=== PATIENT | female | born 1975 | race Caucasian/White ===

== ENCOUNTER 2019-09-26 02:59 | Emergency (ER) | payer SELFPAY ==
[2019-09-26 03:03] VITALS: BMI 22.6
[2019-09-26 03:08] VITALS: BP 135/61; PULSE 110; RESP 18; TEMP 37.2; O2SAT 99
--- NOTE | 2019-09-26 03:21 | W.ED.EXTPRO ---
HPI - Extremity Problem General: Chief complaint: Extremity Injury, Upper Stated complaint: Bilateral Wrist Pain Time Seen by Provider: 09/26/19 03:11 Source: patient Mode of arrival: ambulatory Limitations: no limitations History of Present Illness: HPI Narrative: 44-year-old female who has erythema and warmth and pain to her right wrist. Patient has a history of drug use but denies any IV use at this time. Patient states that it is quite painful and rates it a 9 out of 10. She is had low-grade fevers at home. Denies any worsening or improving factors. Associated symptoms: Reports fever(s); Deny chest pain or rash Review of Systems Const: Reports: fever(s) Eyes: Denies: blurry vision or eye discomfort ENMT: Denies: throat pain or dental pain Card: Denies: chest pain Resp: Denies: dyspnea GI: Denies: abdominal pain, nausea, vomiting or diarrhea : Denies: dysuria Musc: Reports: extremity pain Skin/Breast: Denies: rash Neuro: Denies: headache(s) Psych: Denies: depression Iftikhar/Lymph: Denies: easy bruising All/Imm: Denies: urticaria PFSH ED PFSH: Medical History (Updated 09/26/19 @ 05:00 by Andra Perry MD) Compression fracture of L1 lumbar vertebra Hx of migraines Surgical History H/O knee surgery History of back surgery Social History Smoking and tobacco status: current every day smoker Physical Exam Const: COMMON NORMALS: no acute distress, patient oriented x3 and healthy appearing HENMT: COMMON NORMALS: normocephalic and atraumatic HEAD & SCALP: normocephalic and atraumatic Eye: COMMON NORMALS: Equal, round and reactive pupils present and EOMs intact bilaterally PUPIL: Yes Equal, round and reactive pupils present Neck/C-Spine: COMMON NORMALS: full ROM and supple Chest: COMMONS NORMALS: normal inspection of the chest and normal palpation of entire chest wall Resp: COMMON NORMALS: normal respiratory effort, No retractions, No use of accessory muscles and clear to auscultation bilaterally AUSCULTATION: clear to auscultation bilaterally Cardio: COMMON NORMALS: regular rate, regular rhythm and No murmurs present (Cardio) RATE: regular rate RHYTHM: regular rhythm GI: COMMON NORMALS: Normal to inspection, nondistended, normoactive bowel sounds present, Soft to palpation, non-tender and no masses PALPATION: Yes Soft to palpation Extremity: COMMON NORMALS: full ROM NARRATIVE EXTREMITY EXAM: 3 cm area of erythema to right wrist that is warm to touch with no abscess formation Neuro: COMMON NORMALS: patient oriented x3, moves all extremities and no focal motor deficits Psych: COMMON NORMALS: mental status grossly normal, Normal thought process present and cooperative THOUGHT PROCESS: Normal thought process present Skin: COMMON NORMALS: no rashes or lesions noted and no wounds GENERAL SKIN EXAM: no rashes or lesions noted Course Vital Signs: Vital signs: Vital Signs Temperature 98.9 F 09/26/19 05:19 Pulse Rate 97 09/26/19 05:19 Respiratory Rate 14 09/26/19 05:19 Blood Pressure 120/71 09/26/19 05:19 Pulse Oximetry 100 09/26/19 05:19 MDM - Extremity (Nontraumatic) MDM Narrative: Medical decision making narrative: Patient presents here with a cellulitis to her wrist. She has no signs of abscess formation and cellulitis is roughly 3 to 4 cm. Patient has no signs of sepsis. Patient given IV antibiotics here and will start on Keflex. Informed her to watch area of erythema and return to the ER if worsening. She understands and agrees to this plan. Lab Data: Labs: Lab Results 09/26/19 09/26/19 09/26/19 Range/Units 03:55 04:10 04:10 WBC 15.6 H (4.0-10.0) 10^3/ uL RBC 3.91 L (4.1-5.3) 10^6/u L Hgb 11.7 (11.5-15.3) g/dL Hct 36.1 L (37.0-47.0) % MCV 92.3 (81-99) fL MCH 29.9 (28.0-34.0) pg MCHC 32.4 (30.0-36.0) g/dL RDW 12.6 (12.1-15.1) % Plt Count 282 (130-400) 10^3/c mm MPV 10.2 (7.4-10.4) fL Neut % (Auto) 85.9 % Lymph % (Auto) 5.9 % Amelia % (Auto) 7.6 % Eos % (Auto) 0.0 % Baso % (Auto) 0.2 % Neut # (Auto) 13.39 H (1.8-7.7) 10^3/u L Lymph # (Auto) 0.9 (0.8-4.8) 10^3/u L Amelia # (Auto) 1.2 H (0.2-0.9) 10^3/u L Eos # (Auto) 0.0 (0.0-0.8) 10^3/u L Baso # (Auto) 0.0 (0.0-0.1) 10^3/u L Nucleated RBC % (a uto) 0 % Nucleated RBCs # 0.0 /100WBC Sodium 128 L (136-145) mmol/L Potassium 3.4 L (3.5-5.1) mmol/L Chloride 94 L (98-107) mmol/L Carbon Dioxide 22 (22-29) mmol/L Anion Gap 15.4 (5-19) BUN 6 (6-20) mg/dL Creatinine 0.5 (0.5-0.9) mg/dL GFR Calculation 135.3 H (90-130) mL/min Glucose 175 H (65-115) mg/dL Calculated Osmolal ity 266 L (285-295) mOsm/k g Calcium 9.7 (8.5-10.5) mg/dL Total Bilirubin 0.9 (0.15-1.2) mg/dL AST 17 (0-32) U/L ALT 19 (0-33) U/L Alkaline Phosphata se 74 (35-105) IU/L Total Protein 7.8 (6.6-8.7) g/dL Albumin 4.5 (3.5-5.2) g/dL Globulin 3.3 (1.3-4.6) g/dL Urine Opiates Scre en Positive H (Negative) ng/mL Ur Barbiturates Sc reen Negative (Negative) ng/mL Ur Phencyclidine S crn Negative (Negative) ng/mL Ur Amphetamines Sc reen Positive H (Negative) ng/mL U Benzodiazepines Scrn Negative (Negative) ng/mL Urine Cocaine Scre en Negative (Negative) ng/mL U Marijuana (THC) Screen Positive H (Negative) ng/mL Discharge Plan Discharge Patient Disposition: Home, Self-Care Clinical Impression: Cellulitis Qualifiers: Site of cellulitis: extremity Site of cellulitis of extremity: upper extremity Laterality: left Qualified Code(s): L03.114 - Cellulitis of left upper limb Condition: Stable Prescriptions: New Bactrim DS 800-160 mg tablet 1 tab PO BID 10 Days Qty: 20 RF: 0 Keflex 500 mg capsule 500 mg PO Q6H 7 Days Qty: 28 RF: 0 Naprosyn 500 mg tablet 500 mg PO BID PRN (Reason: pain) Qty: 20 RF: 0 No Action acetaminophen [Tylenol] 325 mg tablet 650 mg PO DAILY PRN (Reason: fever or pain) RF: 0 sertraline 100 mg tablet 100 mg PO DAILY Qty: 30 RF: 2 trazodone 50 mg tablet 150 mg PO .HS Qty: 90 RF: 2 doxycycline hyclate 100 mg capsule 100 mg PO BID Qty: 14 RF: 0 mupirocin 2 % ointment 1 applic TOPICAL TID Qty: 15 RF: 0 Discharge Orders: Discharge Order (Routine); Ordered 09/26/19 Ordered By: Andra Perry Referrals: Serge Edward MD [Primary Care Provider] - 1-3 days Discharge Diet: Advance as tolerated Discharge Activity: Resume usual activity Patient Instructions: Cellulitis (ED) Discharge Date/Time: 09/26/19 05:20 Coding Level of Care Code ED Software Testing Specialist for Chg Fwd Exam Comprehensive
[2019-09-26] MEDS: sodium chloride 0.9% 1,000 ML 999 ML IV (04:10)
[2019-09-26] MEDS: ondansetron 2 mg/ML SDV 2 mL 4 MG IVP (04:10)
[2019-09-26] MEDS: ketorolac 30 mg/mL INJ IVP (04:10)
[2019-09-26] MEDS: vancomycin 1,000 MG in sodium chloride 0.9% 250 ML 250 MG IV (04:10)
[2019-09-26 04:39] LABS: Basophils % 0.2 %; Hematocrit 36.1 % (37.0-47.0); Hemoglobin 11.7 g/dL (11.5-15.3); Lymphocytes # 0.9 10^3/uL (0.8-4.8); Lymphocytes % 5.9 %; Mean Corpuscular HGB Conc 32.4 g/dL (30.0-36.0); Mean Corpuscular Hemoglobin 29.9 pg (28.0-34.0); Mean Corpuscular Volume 92.3 fL (81-99); Mean Platelet Volume 10.2 fL (7.4-10.4); Monocytes # 1.2 10^3/uL (0.2-0.9); Monocytes % 7.6 %; Neutrophils # 13.39 10^3/uL (1.8-7.7); Neutrophils % 85.9 %; Nucleated Red Blood Cells % 0 %; Platelet Count 282 10^3/cmm (130-400); Red Blood Count 3.91 10^6/uL (4.1-5.3); Red Cell Distribution Width 12.6 % (12.1-15.1); White Blood Count 15.6 10^3/uL (4.0-10.0)
[2019-09-26 04:47] LABS: Alanine Aminotransferase 19 U/L (0-33); Albumin Level 4.5 g/dL (3.5-5.2); Alkaline Phosphatase 74 IU/L (35-105); Anion Gap 15.4 (5-19); Aspartate Amino Transferase 17 U/L (0-32); Blood Urea Nitrogen 6 mg/dL (6-20); Calcium 9.7 mg/dL (8.5-10.5); Carbon Dioxide 22 mmol/L (22-29); Chloride 94 mmol/L (98-107); Globulin 3.3 g/dL (1.3-4.6); Glomerular Filtration Rate 135.3 mL/min (90-130); Glucose 175 mg/dL (65-115); Osmolality Calculated 266 mOsm/kg (285-295); Potassium 3.4 mmol/L (3.5-5.1); Sodium 128 mmol/L (136-145); Total Bilirubin 0.9 mg/dL (0.15-1.2); Total Protein 7.8 g/dL (6.6-8.7)
[2019-09-26 05:19] VITALS: BP 120/71; PULSE 97; RESP 14; TEMP 37.2; O2SAT 100
[2019-09-26 05:25] LABS: Amphetamines Screen Urine Positive (Negative); Barbiturates Screen Urine Negative (Negative); Benzodiazepines Screen Urine Negative (Negative); Cocaine Screen Urine Negative (Negative); Opiate Screen Urine Positive (Negative); PCP Screen Urine Negative (Negative); THC Screen Urine Positive (Negative)
== END 2019-09-26 05:20 | disposition home or self-care (01) ==
PROVIDERS: Emergency Provider Emergency Medicine; PCP Family Medicine
DX: L03.114 Cellulitis of left upper limb (principal); F17.210 Nicotine dependence, cigarettes, uncomplicated
CPT/HCPCS: 12345; 80053; 80306; 85025; 96360; 96361; 96365; 96375; 99283; J1885; J2405; J3370; J7030; J7050

== ENCOUNTER → 2020-09-10 17:55 | Outpatient (BNVA) | payer SELFPAY | PROVIDERS: PCP Family Medicine; Visit Provider Nurse Practitioner Family | DX: S69.90XA Unspecified injury of unspecified wrist, hand and finger(s), initial encounter (principal); X58.XXXA Exposure to other specified factors, initial encounter | CPT/HCPCS: 73130 ==

== ENCOUNTER 2020-09-23 13:57 | Inpatient (IN) | payer SELFPAY ==
[2020-09-23 13:59] VITALS: BP 130/83; PULSE 95; RESP 15; TEMP 36.7; O2SAT 97; BMI 23.3
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
[2020-09-23] MEDS: HYDROcodone-acetaminophen 5-325 mg Tablet 1 TAB PO (14:35)
[2020-09-23] MEDS: ketorolac 60 mg/2 mL INJ IM (14:42)
[2020-09-23 15:19] LABS: Basophils % 0.5 %; Eosinophils # 0.1 10^3/uL (0.0-0.8); Eosinophils % 0.7 %; Hematocrit 36.1 % (37.0-47.0); Hemoglobin 11.4 g/dL (11.5-15.3); Lymphocytes # 2.5 10^3/uL (0.8-4.8); Lymphocytes % 28.1 %; Mean Corpuscular HGB Conc 31.6 g/dL (30.0-36.0); Mean Corpuscular Hemoglobin 29.7 pg (28.0-34.0); Mean Platelet Volume 9.8 fL (7.4-10.4); Monocytes # 0.7 10^3/uL (0.2-0.9); Monocytes % 7.8 %; Neutrophils % 62.6 %; Nucleated Red Blood Cells % 0 %; Platelet Count 282 10^3/cmm (130-400); Red Blood Count 3.84 10^6/uL (4.1-5.3); Red Cell Distribution Width 13.3 % (12.1-15.1); White Blood Count 8.8 10^3/uL (4.0-10.0)
[2020-09-23 15:56] LABS: HCG, Serum Qual Negative (Negative)
[2020-09-23] MEDS: nicotine 21 mg Patch 1 PATCH TRANSDERMA (15:58)
[2020-09-23 16:11] LABS: Acetaminophen < 5.0 ug/mL (10-30); Alanine Aminotransferase 20 U/L (0-33); Albumin Level 3.7 g/dL (3.5-5.2); Alcohol Level < 10 mg/dL (0-10); Alkaline Phosphatase 75 IU/L (35-105); Anion Gap 16.1 (5-19); Aspartate Amino Transferase 15 U/L (0-32); Blood Urea Nitrogen 13 mg/dL (6-20); Calcium 8.5 mg/dL (8.5-10.5); Carbon Dioxide 24 mmol/L (22-29); Chloride 102 mmol/L (98-107); Globulin 2.7 g/dL (1.3-4.6); Glomerular Filtration Rate 109.1 mL/min (90-130); Glucose 155 mg/dL (65-115); Osmolality Calculated 289 mOsm/kg (285-295); Potassium 4.1 mmol/L (3.5-5.1); Salicylate < 0.3 mg/dL (3-10); Sodium 138 mmol/L (136-145); Total Bilirubin 0.2 mg/dL (0.15-1.2); Total Protein 6.4 g/dL (6.6-8.7)
[2020-09-23 16:14] VITALS: BP 103/50; PULSE 75; RESP 20; TEMP 36.5; O2SAT 98
--- NOTE | 2020-09-23 17:49 | PC.NURSE ---
report to Darlin CHEN
[2020-09-23 18:06] VITALS: BP 108/75; PULSE 81; RESP 18; O2SAT 98
[2020-09-23 19:23] VITALS: BP 104/66; PULSE 77; RESP 18; TEMP 36.2; O2SAT 97
[2020-09-23 21:17] VITALS: BP 110/68; PULSE 66; RESP 18; TEMP 36.6; O2SAT 95
[2020-09-24 03:51] VITALS: BP 101/62; PULSE 74; RESP 15; TEMP 37; O2SAT 97
[2020-09-24] MEDS: acetaminophen 325 mg Tablet 650 MG PO ×2 (06:21→15:09)
[2020-09-24 07:36] LABS: Amphetamines Screen Urine Negative (Negative); Barbiturates Screen Urine Negative (Negative); Benzodiazepines Screen Urine Negative (Negative); Cocaine Screen Urine Negative (Negative); Opiate Screen Urine Positive (Negative); PCP Screen Urine Negative (Negative); THC Screen Urine Positive (Negative)
[2020-09-24] MEDS: nicotine 21 mg Patch 1 PATCH TRANSDERMA (12:55)
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
[2020-09-24 13:39] VITALS: BP 105/58; PULSE 69; RESP 16; TEMP 36.7; O2SAT 98
[2020-09-24] MEDS: HYDROcodone-acetaminophen 7.5-325 mg Tablet 1 TAB PO ×2 (17:19→22:36)
[2020-09-24 21:03] VITALS: BP 101/62; PULSE 70; RESP 16; TEMP 36.6; O2SAT 98
[2020-09-24] MEDS: hyDROXYzine 25 mg Capsule 50 MG PO (21:42)
[2020-09-24] MEDS: trazodone 50 mg Tablet PO ×2 (21:42→22:36)
--- NOTE | 2020-09-24 22:40 | PC.NURSE ---
pain/meds contacted Dr Hayward for orders for pain control. Pt give 800mg Motrin once one, and an order for Motrin 600mg po q6h prn for pain. Per physician, pt may receive her [place] pain medication early d/t increased pain level. Med nurse notified of orders.
--- NOTE | 2020-09-24 22:45 | PC.NURSE ---
removed nicotine patch
[2020-09-24] MEDS: ibuprofen 800 mg tablet PO (23:50)
[2020-09-25 06:00] VITALS: BP 98/59; PULSE 60; RESP 18; TEMP 36.4; O2SAT 95
[2020-09-25] MEDS: sertraline 100 mg Tablet 200 MG PO (06:37)
[2020-09-25] MEDS: HYDROcodone-acetaminophen 7.5-325 mg Tablet 1 TAB PO ×3 (06:50→21:39)
[2020-09-25] MEDS: ARIPiprazole 10 mg Tablet 5 MG PO (08:08)
[2020-09-25] MEDS: nicotine 21 mg Patch 1 PATCH TRANSDERMA (13:47)
[2020-09-25 14:00] VITALS: BP 120/68; PULSE 70; RESP 17; TEMP 36.6; O2SAT 96
--- NOTE | 2020-09-25 15:19 | PC.RESP ---
SMOKING CESSATION INFORMATION SENT TO PATIENT.
--- NOTE | 2020-09-25 15:37 | P.PN_ITS ---
Subjective NPU Subjective: Interval history: Mitra presents today reporting that she is feeling okay possibly a little better than yesterday but is having some concerns about her hand. She is not sure whether it something she should be concerned about or not but we discussed the risk benefits alternatives of seeing how she feels in the morning and considering a consult if she still having discomfort. Otherwise we discussed the possibility of increasing her Abilify to 10 mg p.o. every morning and she understood and reported she would consider making the change. Mental Status Exam MSE Comments: This is a slender white female in hospital scrubs with appropriate grooming and eye contact. No abnormal movements. Cooperative with exam in no acute distress. Speech was decreased rate and volume. Mood described as I will know may be a little better, affect congruent. Thought process organized. Thought content: Patient endorsed suicidal ideation but denied homicidal ideation, there were no delusions reported or noted, she denied any auditory or visual hallucinations. Attention and concentration appeared intact and memory appeared reliable but none were formally tested. She is alert and oriented x3. Insight and judgment appeared limited, impulse control is impaired. Vitals/I&O/Wt Last Vital Signs Temp 97.8 F 09/25/20 14:00 Pulse 70 09/25/20 14:00 Resp 17 09/25/20 14:00 BP 120/68 09/25/20 14:00 Pulse Ox 96 09/25/20 14:00 Data NPU : 09/23/20 15:10 09/23/20 15:10 A&P Additional A&P Information (1) Suicidal ideation: (2) Amphetamine use disorder, moderate, in sustained remission: (3) Opioid use disorder, moderate, in sustained remission, dependence: (4) Sexual masochism: (5) Borderline personality disorder: (6) Cannabis abuse: Additional A&P Information This is a 45-year-old white female with a long history of addiction and mental health challenges including personality disorder with recent psychosocial challenges including loss of residence and surgery with limited supports who presents endorsing suicidality and open to inpatient treatment. 1. Continue current medication. Consider increase in Abilify to 10 mg p.o. every morning. 2. Encourage individual, group and milieu therapy. 3. Continue every 15 minute checks for safety. 4. Encourage sober living treatment after discharge at the highest level of care to which she is willing to commit. 5. Possible consult to hospitalist to identify whether pain in the hand is normal or whether we need to increase pain medication etc. Involuntary Hold Information 96 Hour Hold: 96 Hour Involuntary Admission: Yes 96 Hour Hold Ending Date: 09/29/20 96 Hour Hold Ending Time: 14:25 Attestations NPU Medical Necessity Statement*: Inpatient psychiatric hospitalization is medically necessary and the clinically appropriate intervention at this time. We will monitor medications and make changes as indicated. Likely length of stay 2-4 days. 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
[2020-09-25] MEDS: ibuprofen 600 mg Tablet PO ×2 (18:05→21:40)
[2020-09-25 20:11] VITALS: BP 127/74; PULSE 63; RESP 17; TEMP 37.1; O2SAT 97
[2020-09-25] MEDS: trazodone 50 mg Tablet PO (21:39)
[2020-09-25] MEDS: hyDROXYzine 25 mg Capsule 50 MG PO (21:40)
[2020-09-25] MEDS: ondansetron 4 MG Tablet PO (21:43)
--- NOTE | 2020-09-25 21:54 | PC.NURSE ---
Requested Vistaril 50 mg po for anxiety and Trazodone 50 mg po for insomnia. Both given.
[2020-09-26] MEDS: sertraline 100 mg Tablet 200 MG PO (05:57)
[2020-09-26 06:00] VITALS: BP 118/65; PULSE 63; RESP 18; TEMP 36.8; O2SAT 97
[2020-09-26] MEDS: ibuprofen 600 mg Tablet PO ×2 (06:01→08:15)
[2020-09-26] MEDS: nicotine 2 mg Gum BUCCAL (06:01)
[2020-09-26] MEDS: HYDROcodone-acetaminophen 7.5-325 mg Tablet 1 TAB PO ×2 (06:04→15:13)
[2020-09-26] MEDS: ARIPiprazole 10 mg Tablet 5 MG PO ×2 (08:15→12:52)
[2020-09-26] MEDS: hyDROXYzine 25 mg Capsule 50 MG PO ×2 (08:15→22:34)
--- NOTE | 2020-09-26 08:16 | PC.NURSE ---
PRN VISTARIL 50 MG GIVEN PO PER PT C/O ANXIETY. PT WITHDRAWN, FLAT AFFECT. WILL CONT TO MONITOR
[2020-09-26 13:55] VITALS: BP 113/64; PULSE 70; RESP 17; TEMP 36.7; O2SAT 97
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
--- NOTE | 2020-09-26 16:57 | P.PN_ITS ---
Subjective NPU Subjective: Interval history: Mitra presents today reporting that she did get to speak to the hospitalist and felt better as he was able to make some suggestions from standpoint of pain management. She reports that she is feeling less stressed secondary to that but obviously still has to manage the other challenges exist in her life. Reports he is feeling a little better from a mental health standpoint. Is able to sleep a little better with the pain more appropriately managed. Mental Status Exam MSE Comments: This is a slender white female in hospital scrubs with appropriate grooming and eye contact. No abnormal movements except for mild psychomotor retardation. Cooperative with exam in no acute distress. Speech was decreased rate and volume. Mood described as a little better, affect congruent. Thought process organized. Thought content: Patient denied current suicidal ideation but denied homicidal ideation, there were no delusions reported or noted, she denied any auditory or visual hallucinations. Attention and concentration appeared intact and memory appeared reliable but none were formally tested. She is alert and oriented x3. Insight and judgment appeared limited, impulse control is limited. Vitals/I&O/Wt Last Vital Signs Temp 98.0 F 09/26/20 13:55 Pulse 70 09/26/20 13:55 Resp 17 09/26/20 13:55 BP 113/64 09/26/20 13:55 Pulse Ox 97 09/26/20 13:55 Weight last 48 hrs Weight 65.771 kg Data NPU : 09/23/20 15:10 09/23/20 15:10 A&P Additional A&P Information (1) Suicidal ideation: (2) Amphetamine use disorder, moderate, in sustained remission: (3) Opioid use disorder, moderate, in sustained remission, dependence: (4) Sexual masochism: (5) Borderline personality disorder: (6) Cannabis abuse: Additional A&P Information This is a 45-year-old white female with a long history of addiction and mental health challenges including personality disorder with recent psychosocial challenges including loss of residence and surgery with limited supports who presents endorsing suicidality and open to inpatient treatment. 1. Continue current medication. Increase Abilify to 10 mg p.o. every morning. 2. Encourage individual, group and milieu therapy. 3. Continue every 15 minute checks for safety. 4. Encourage sober living treatment after discharge at the highest level of care to which she is willing to commit. 5. Appreciate hospitalist consult will follow recommendations. Involuntary Hold Information 96 Hour Hold: 96 Hour Involuntary Admission: Yes 96 Hour Hold Ending Date: 09/29/20 96 Hour Hold Ending Time: 14:25 Attestations NPU Medical Necessity Statement*: Inpatient psychiatric hospitalization is medically necessary and the clinically appropriate intervention at this time. We will monitor medications and make changes as indicated. Likely length of stay 2-4 days. Coding Level of Care Code Acute Hospice Home Care Coordinator for Rhonda Rey
[2020-09-26 21:34] VITALS: BP 132/83; PULSE 77; RESP 18; TEMP 36.6; O2SAT 98
[2020-09-26] MEDS: HYDROcodone-acetaminophen 10-325 mg Tablet 1 TAB PO (22:34)
[2020-09-26] MEDS: trazodone 50 mg Tablet PO (22:34)
--- NOTE | 2020-09-26 22:35 | PC.NURSE ---
PT REQUESTED SLEEP, ANXIETY AND PAIN MEDS. TRAZODONE 50MG PO FOR SLEEP, VISTARIL 50MG PO FOR ANXIETY, AND NORCO 10/325 PO FOR PAIN GIVEN.
--- NOTE | 2020-09-27 | PC.NURSE ---
PT RESTING QUIETLY WITH BOTH EYES CLOSED.
[2020-09-27 06:00] VITALS: BP 136/91; PULSE 86; RESP 17; TEMP 36.6; O2SAT 96; BMI 23.3
[2020-09-27] MEDS: sertraline 100 mg Tablet 200 MG PO (06:35)
[2020-09-27] MEDS: HYDROcodone-acetaminophen 10-325 mg Tablet 1 TAB PO ×3 (06:59→21:24)
[2020-09-27] MEDS: ARIPiprazole 10 mg Tablet PO (09:02)
[2020-09-27] MEDS: nicotine 21 mg Patch 1 PATCH TRANSDERMA (09:18)
[2020-09-27 14:00] VITALS: BP 126/68; PULSE 75; RESP 18; TEMP 36.5; O2SAT 97
[2020-09-27] MEDS: ibuprofen 600 mg Tablet PO (15:20)
[2020-09-27] MEDS: hyDROXYzine 25 mg Capsule 50 MG PO (17:59)
--- NOTE | 2020-09-27 18:22 | PM.NPN ---
Subjective NPU Subjective: Interval history: Mitra presents today reporting that she is starting to be more optimistic about how things could be. She did reach out to a person in her [place] and that she can possibly stay with her for few days but that person will help her get her car seat to start getting her situation lined back up. We discussed the possibility of discharge in the morning which she was optimistic about. She denied any lethality reports that she is eating and sleeping better. Mental Status Exam MSE Comments: This is a slender white female in hospital scrubs with appropriate grooming and eye contact. No abnormal movements except for resolving mild psychomotor retardation. Cooperative with exam in no acute distress. Speech was more normal rate and volume. Mood described as a little better, affect congruent. Thought process organized. Thought content: Patient denied current suicidal ideation but denied homicidal ideation, there were no delusions reported or noted, she denied any auditory or visual hallucinations. Attention and concentration appeared intact and memory appeared reliable but none were formally tested. She is alert and oriented x3. Insight and judgment appeared improving, impulse control is limited, but improving. Vitals/I&O/Wt Last Vital Signs Temp 98.6 F 09/27/20 21:44 Pulse 70 09/27/20 21:44 Resp 16 09/27/20 21:44 BP 137/83 09/27/20 21:44 Pulse Ox 100 09/27/20 21:44 Weight last 48 hrs Weight 65.771 kg Data NPU : 09/23/20 15:10 09/23/20 15:10 A&P Additional A&P Information (1) Suicidal ideation: (2) Amphetamine use disorder, moderate, in sustained remission: (3) Opioid use disorder, moderate, in sustained remission, dependence: (4) Sexual masochism: (5) Borderline personality disorder: (6) Cannabis abuse: Additional A&P Information This is a 45-year-old white female with a long history of addiction and mental health challenges including personality disorder with recent psychosocial challenges including loss of residence and surgery with limited supports who presents endorsing suicidality and open to inpatient treatment. 1. Continue current medication. 2. Encourage individual, group and milieu therapy. 3. Continue every 15 minute checks for safety. 4. Encourage sober living treatment after discharge at the highest level of care to which she is willing to commit. 5. Appreciate hospitalist consult will identify appropriate discharge pain medication. Involuntary Hold Information 96 Hour Hold: 96 Hour Involuntary Admission: Yes 96 Hour Hold Ending Date: 09/29/20 96 Hour Hold Ending Time: 14:25 Attestations NPU Medical Necessity Statement*: Inpatient psychiatric hospitalization is medically necessary and the clinically appropriate intervention at this time. We will monitor medications and make changes as indicated. Likely length of stay 1-3 days. Coding Level of Care Code Acute Parking Ramp Attendant for Rhonda Rey
[2020-09-27] MEDS: trazodone 50 mg Tablet PO (21:24)
--- NOTE | 2020-09-27 21:30 | PC.NURSE ---
pt requested sleep med, trazodone 50mg po given.
[2020-09-27 21:44] VITALS: BP 137/83; PULSE 70; RESP 16; TEMP 37; O2SAT 100
--- NOTE | 2020-09-27 22:30 | PC.NURSE ---
pt resting quietly with both eyes closed.
[2020-09-28 06:00] VITALS: BP 106/72; PULSE 80; RESP 17; TEMP 36.6; O2SAT 97
[2020-09-28] MEDS: HYDROcodone-acetaminophen 10-325 mg Tablet 1 TAB PO ×2 (06:58→11:01)
[2020-09-28] MEDS: sertraline 100 mg Tablet 200 MG PO (06:58)
[2020-09-28] MEDS: ARIPiprazole 10 mg Tablet PO (09:56)
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
[2020-09-28 14:54] VITALS: BP 106/72; PULSE 80; RESP 17; TEMP 36.6; O2SAT 97
== END 2020-09-28 15:34 | disposition home or self-care (01) | DRG 881 ==
LOC: ER 14:43 → NP 17:52
PROVIDERS: Admitting Provider Psychiatry & Neurology Psychiatry; Emergency Provider Physician Assistant; PCP Family Medicine; Visit Provider Psychiatry & Neurology Psychiatry
DX: F32.9 Major depressive disorder, single episode, unspecified (principal); R45.851 Suicidal ideations; Z63.4 Disappearance and death of family member; F17.210 Nicotine dependence, cigarettes, uncomplicated; F15.11 Other stimulant abuse, in remission; F11.21 Opioid dependence, in remission; F12.10 Cannabis abuse, uncomplicated; F01-F99 Mental, behavioral and neurodevelopmental disorders; F60.3 Borderline personality disorder; X58.XXXA Exposure to other specified factors, initial encounter; S62.605A Fracture of unspecified phalanx of left ring finger, initial encounter for closed fracture
CPT/HCPCS: 80053; 80306; 80307; 84703; 85025; 96372; 99285; J1885; Q0162

== ENCOUNTER 2021-06-25 20:55 | Emergency (ER) | payer SELFPAY ==
[2021-06-25 21:05] VITALS: BP 164/95; PULSE 111; RESP 16; TEMP 37.1; O2SAT 97; BMI 23.3
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
[2021-06-25 22:30] VITALS: BP 142/88; PULSE 116; RESP 16; O2SAT 100
== END 2021-06-25 22:34 | disposition home or self-care (01) ==
PROVIDERS: Emergency Provider Nurse Practitioner Family
DX: S09.93XA Unspecified injury of face, initial encounter (principal); F17.210 Nicotine dependence, cigarettes, uncomplicated; Y04.2XXA Assault by strike against or bumped into by another person, initial encounter
CPT/HCPCS: 70110; 99282

== ENCOUNTER → 2021-08-19 14:38 | Outpatient (BNVA) | payer OTHER, SELFPAY | PROVIDERS: Visit Provider Psychiatry & Neurology Psychiatry | DX: F60.3 Borderline personality disorder (principal) | CPT/HCPCS: 80061; 83036 ==

== ENCOUNTER 2022-01-27 15:04 | Emergency (ER) | payer MEDICAID, SELFPAY ==
[2021-08-24 15:39] VITALS: BP 164/96; BMI 26.2
[2022-01-27 15:19] VITALS: BP 162/91; PULSE 111; RESP 16; TEMP 37.8; O2SAT 97
--- NOTE | 2022-01-27 15:28 | XRR_ITS ---
PROCEDURE INFORMATION: Exam: XR Chest Exam date and time: 01/27/2022 4:47 PM Age: 46 years old Clinical indication: Fever TECHNIQUE: Imaging protocol: Radiologic exam of the chest. Views: 1 view. COMPARISON: CR XR chest 1V [id number] 11/14/2017 1:30 PM FINDINGS: Lungs: Unremarkable. No consolidation. Pleural spaces: Unremarkable. No pleural effusion. No pneumothorax. Heart/Mediastinum: Unremarkable. No cardiomegaly. Bones/joints: Unremarkable. XR/XR chest 1V portable [id number] IMPRESSION: No acute findings.
--- NOTE | 2022-01-27 15:31 | ED_ITS ---
HPI - URI/Sore Throat General: Chief Complaint: Upper Respiratory Infection Stated Complaint: fever, chills, sore throat Time Seen by Provider: 01/27/22 15:23 Source: patient Mode of arrival: ambulatory Limitations: no limitations History of Present Illness: 46-year-old female states that over the last 3 days she has been having cough body aches fevers and a sore throat. Patient is in no distress here she had some mild dyspnea states she had some sinus congestion as well. She had headaches as well. She denies any worsening improving factors. She did answer yes to some of the suicide screening questions she states that she just gets depressed over the holidays every year she states that she has no plan and does not feel actively suicidal just has passing thoughts due to depression at the holidays. Associated symptoms: Reports chills and fever(s); Deny abdominal pain, chest pain, diarrhea, headache(s), nausea or vomiting Review of Systems Const: Reports: fever(s), chills and body aches Eyes: Denies: blurry vision or eye discomfort ENMT: Denies: throat pain or dental pain Card: Denies: chest pain Resp: Reports: dyspnea and non-productive cough GI: Denies: abdominal pain, nausea, vomiting or diarrhea : Denies: dysuria Musc: Denies: neck pain or back pain Skin/Breast: Denies: rash Neuro: Denies: headache(s) Psych: Denies: depression Iftikhar/Lymph: Denies: easy bruising All/Imm: Denies: urticaria PFSH ED PFSH: Medical History Compression fracture of L1 lumbar vertebra Hx of migraines Psychiatric care Surgical History H/O knee surgery History of back surgery Family History Other Family history non-contributory Social History Smoking and tobacco status: current every day smoker cigarettes Packs smoked per day: 0.5 Years cigarettes smoked: 25 Quit status (tobacco): has tried quititng Number of times tried to quit tobacco: 2 Second hand smoke exposure: Yes (Sometimes.) Smoking risk assessment/counseling performed?: No Alcohol intake: former Desire information about alcohol rehabilitation?: No Counseling given: No Desire information about substance/drug rehabilitation?: No Counseling given: No Physical Exam Const: COMMON NORMALS: no acute distress, patient oriented x3 and healthy appearing HENMT: COMMON NORMALS: normocephalic and atraumatic HEAD & SCALP: normocephalic and atraumatic Eye: COMMON NORMALS: Equal, round and reactive pupils present and EOMs intact bilaterally PUPIL: Yes Equal, round and reactive pupils present Neck/C-Spine: COMMON NORMALS: full ROM and supple Chest: COMMONS NORMALS: normal inspection of the chest and normal palpation of entire chest wall Resp: COMMON NORMALS: normal respiratory effort, No retractions, No use of accessory muscles and clear to auscultation bilaterally AUSCULTATION: clear to auscultation bilaterally Cardio: COMMON NORMALS: regular rate, regular rhythm and No murmurs present (Cardio) RATE: regular rate RHYTHM: regular rhythm GI: COMMON NORMALS: Normal to inspection, nondistended, normoactive bowel sounds present, Soft to palpation, non-tender and no masses PALPATION: Yes Soft to palpation Extremity: COMMON NORMALS: normal to inspection and full ROM Neuro: COMMON NORMALS: patient oriented x3, moves all extremities and no focal motor deficits Psych: COMMON NORMALS: mental status grossly normal, Normal thought process present and cooperative THOUGHT PROCESS: Normal thought process present Skin: COMMON NORMALS: no rashes or lesions noted and no wounds GENERAL SKIN EXAM: no rashes or lesions noted Course Vital Signs: Vital signs: Vital Signs Temperature 100.1 F H 01/27/22 15:19 Pulse Rate 111 H 01/27/22 15:19 Respiratory Rate 16 01/27/22 15:19 Blood Pressure 162/91 01/27/22 15:19 Pulse Oximetry 97 01/27/22 15:19 Oxygen Delivery Me thod 01/27/22 15:19 MDM - URI/Sore Throat Medical Decision Making Patient presents here with fever body aches cough she does have flu a she is 4 days into her symptoms Tamiflu will not be effective she is in no distress she is stable for discharge. She does have some depression she is not actively suicidal I did speak with Dr. Hayward and discussed case he agrees that patient is stable for discharge Lab Data Laboratory Results Influenza Type A Ag Positive (Negative) H 01/27/22 15:35 Influenza Type B Ag Negative (Negative) 01/27/22 15:35 SARS-CoV-2 Ag (Rapid) negative (Negative) 01/27/22 15:35 Discharge Plan Discharge Patient Disposition: Home Clinical Impression: Influenza A, Depression Condition: Stable Prescriptions: No Action hydroxyzine HCl 50 mg tablet 50 mg PO QID PRN (Reason: anxiety) Qty: 120 2RF propranolol 20 mg tablet 20 mg PO BID Qty: 60 2RF Tylenol Extra Strength 500 mg tablet 1,000 mg PO Q6H PRN (Reason: Pain) ibuprofen 200 mg Tablet 600 mg PO Q6H PRN (Reason: Pain) olanzapine 10 mg tablet 10 mg PO BEDTIME duloxetine 60 mg capsule,delayed release(DR/EC) 60 mg PO QAM Discharge Orders: Discharge ED (Routine); Ordered 01/27/22 Ordered By: Andra Perry Referrals: Serge Edward MD [Primary Care Provider] - 1-3 days Discharge Diet: Advance as tolerated Discharge Activity: Resume usual activity Patient Instructions: Influenza (ED) Stand Alone Forms: Work/School Release Coding Level of Care Code ED Senior Electrical Designer for Chg Fwd Exam Comprehensive
--- NOTE | 2022-01-27 15:57 | PC.PHAR ---
PT STATES SHE TAKES CARE OF HER OWN MEDICATIONS-PT STATES SHE IS HOMELESS AND OUT OF HER PROPRANOLOL 20MG BID EXT MED HISTORY SHOWS LAST FILLED 12/31/21 30D/S PT STATES NOT HAD IN 2-3 WEEKS
[2022-01-27 16:00] LABS: SARS Covid-2 Antigen negative (Negative)
[2022-01-27 16:11] LABS: Influenza A by IFA Positive (Negative); Influenza B by IFA Negative (Negative)
[2022-01-27] MEDS: ketorolac 30 mg/mL INJ IM (16:27)
== END 2022-01-27 17:00 | disposition home or self-care (01) ==
PROVIDERS: Emergency Provider Emergency Medicine; PCP Family Medicine
DX: J10.1 Influenza due to other identified influenza virus with other respiratory manifestations (principal); F32.A Depression, unspecified; Z20.822 Contact with and (suspected) exposure to COVID-19; F17.210 Nicotine dependence, cigarettes, uncomplicated
CPT/HCPCS: 71045; 87426; 87804; 96372; 99284; J1885

== ENCOUNTER 2022-01-30 02:45 | Emergency (ER) | payer MEDICAID, SELFPAY ==
[2021-08-24 15:39] VITALS: BP 164/96; BMI 26.2
--- NOTE | 2022-01-30 02:50 | XRR_ITS ---
PROCEDURE INFORMATION: Exam: XR Chest Exam date and time: 01/30/2022 5:06 AM Age: 46 years old Clinical indication: Pain; Chest pressure; Additional info: Cp TECHNIQUE: Imaging protocol: Radiologic exam of the chest. Views: 1 view. COMPARISON: CR (CHEST, ) 01/27/2022 4:47 PM FINDINGS: Lungs: The lungs are somewhat hyperinflated with increased interstitial markings, likely representing COPD. Streaky bibasilar atelectasis noted. No evidence of focal consolidation to suggest pneumonia. Pleural spaces: Unremarkable. No pleural effusion. No pneumothorax. Heart/Mediastinum: Stable cardiomediastinal silhouette. Bones/joints: Unremarkable. XR/XR chest 1V portable [id number] IMPRESSION: No evidence of focal consolidation. COPD changes.
[2022-01-30 02:52] VITALS: BP 151/96; PULSE 86; RESP 18; TEMP 37.1; O2SAT 97; BMI 27.4
--- NOTE | 2022-01-30 03:45 | W.ED.GENADLT ---
HPI - General Adult General: Chief complaint: General Medical Stated complaint: Chest pains, coughing up claudia tillman Time Seen by Provider: 01/30/22 02:54 Source: patient Mode of arrival: ambulatory Limitations: no limitations History of Present Illness: 46-year-old female who seen here 2 days ago diagnosed with influenza she states that over the last day she has been having a sharp burning pain in the center of her chest. She states it is worse when she coughs and with inspirations. States been constant she denies any radiation of pain denies any vomiting or diarrhea. Associated symptoms: Reports chest pain; Deny headache(s), nausea, rash or vomiting Review of Systems Const: Denies: fever(s), chills, body aches or change in appetite Eyes: Denies: blurry vision or eye discomfort ENMT: Denies: throat pain or dental pain Card: Reports: chest pain Resp: Reports: non-productive cough GI: Denies: abdominal pain, nausea, vomiting or diarrhea : Denies: dysuria Musc: Denies: neck pain or back pain Skin/Breast: Denies: rash Neuro: Denies: headache(s) Psych: Denies: depression Iftikhar/Lymph: Denies: easy bruising All/Imm: Denies: urticaria PFSH ED PFSH: Medical History Compression fracture of L1 lumbar vertebra Hx of migraines Psychiatric care Surgical History H/O knee surgery History of back surgery Family History Other Family history non-contributory Social History Smoking and tobacco status: current every day smoker cigarettes Packs smoked per day: 0.5 Years cigarettes smoked: 25 Quit status (tobacco): has tried quititng Number of times tried to quit tobacco: 2 Second hand smoke exposure: Yes (Sometimes.) Smoking risk assessment/counseling performed?: No Alcohol intake: former Desire information about alcohol rehabilitation?: No Counseling given: No Desire information about substance/drug rehabilitation?: No Counseling given: No Physical Exam Const: COMMON NORMALS: no acute distress, patient oriented x3 and healthy appearing HENMT: COMMON NORMALS: normocephalic and atraumatic HEAD & SCALP: normocephalic and atraumatic Eye: COMMON NORMALS: Equal, round and reactive pupils present and EOMs intact bilaterally PUPIL: Yes Equal, round and reactive pupils present Neck/C-Spine: COMMON NORMALS: full ROM and supple Chest: COMMONS NORMALS: normal inspection of the chest and normal palpation of entire chest wall Resp: COMMON NORMALS: normal respiratory effort, No retractions, No use of accessory muscles and clear to auscultation bilaterally AUSCULTATION: clear to auscultation bilaterally Cardio: COMMON NORMALS: regular rate, regular rhythm and No murmurs present (Cardio) RATE: regular rate RHYTHM: regular rhythm GI: COMMON NORMALS: Normal to inspection, nondistended, normoactive bowel sounds present, Soft to palpation, non-tender and no masses PALPATION: Yes Soft to palpation Extremity: COMMON NORMALS: normal to inspection and full ROM Neuro: COMMON NORMALS: patient oriented x3, moves all extremities and no focal motor deficits Psych: COMMON NORMALS: mental status grossly normal, Normal thought process present and cooperative THOUGHT PROCESS: Normal thought process present Skin: COMMON NORMALS: no rashes or lesions noted and no wounds GENERAL SKIN EXAM: no rashes or lesions noted Course Vital Signs: Vital signs: Vital Signs Temperature 98.7 F 01/30/22 02:52 Pulse Rate 86 01/30/22 02:52 Respiratory Rate 18 01/30/22 02:52 Blood Pressure 151/96 01/30/22 02:52 Pulse Oximetry 97 01/30/22 02:52 [facility] - General Adult Medical Decision Making Patient presents here with chest pain is atypical in nature is likely pleuritic from her influenza she is well-appearing here EKG troponins normal she stable for discharge. Lab Data 01/30/22 03:50 01/30/22 03:50 Laboratory Results WBC 8.4 10^3/uL (4.0-10.0) 01/30/22 03:50 RBC 4.16 10^6/uL (4.1-5.3) 01/30/22 03:50 Hgb 12.8 g/dL (11.5-15.3) 01/30/22 03:50 Hct 38.9 % (37.0-47.0) 01/30/22 03:50 MCV 93.5 fl (81-99) 01/30/22 03:50 MCH 30.8 pg (28.0-34.0) 01/30/22 03:50 MCHC 32.9 g/dL (30.0-36.0) 01/30/22 03:50 RDW 13.8 % (12.1-15.1) 01/30/22 03:50 Plt Count 251 10^3/cmm (130-400) 01/30/22 03:50 MPV 10.4 fL (7.4-10.4) 01/30/22 03:50 Neut % (Auto) 73.6 % 01/30/22 03:50 Lymph % (Auto) 16.9 % 01/30/22 03:50 [place] % (Auto) 9.1 % 01/30/22 03:50 Eos % (Auto) 0.2 % 01/30/22 03:50 Baso % (Auto) 0.1 % 01/30/22 03:50 Neut # (Auto) 6.17 10^3/uL (1.8-7.7) 01/30/22 03:50 Lymph # (Auto) 1.4 10^3/uL (0.8-4.8) 01/30/22 03:50 [place] # (Auto) 0.8 10^3/uL (0.2-0.9) 01/30/22 03:50 Eos # (Auto) 0.0 10^3/uL (0.0-0.8) 01/30/22 03:50 Baso # (Auto) 0.0 10^3/uL (0.0-0.1) 01/30/22 03:50 Nucleated RBC % (auto) 0 % 01/30/22 03:50 Nucleated RBCs # 0.0 /100WBC 01/30/22 03:50 Sodium 134 mmol/L (136-145) L 01/30/22 03:50 Potassium 3.8 mmol/L (3.5-5.1) 01/30/22 03:50 Chloride 100 mmol/L (98-107) 01/30/22 03:50 Carbon Dioxide 23 mmol/L (22-29) 01/30/22 03:50 Anion Gap 14.8 (5-19) 01/30/22 03:50 BUN 5 mg/dL (6-20) L 01/30/22 03:50 Creatinine 0.4 mg/dL (0.5-0.9) L 01/30/22 03:50 GFR Calculation 173.4 mL/min (90-130) H 01/30/22 03:50 Glucose 143 mg/dL (65-115) H 01/30/22 03:50 Calculated Osmolality 278 mOsm/kg (285-295) L 01/30/22 03:50 Calcium 9.4 mg/dL (8.5-10.5) 01/30/22 03:50 Total Bilirubin 0.5 mg/dL (0.15-1.2) 01/30/22 03:50 AST 29 U/L (0-32) 01/30/22 03:50 ALT 28 U/L (0-33) 01/30/22 03:50 Alkaline Phosphatase 80 U/L (35-105) 01/30/22 03:50 Troponin T Baseline 6 ng/L (0-10) 01/30/22 03:50 NT-Pro-B Natriuret Pep 44 pg/mL (0-125) 01/30/22 03:50 Total Protein 7.3 g/dL (6.6-8.7) 01/30/22 03:50 Albumin 4.3 g/dL (3.5-5.2) 01/30/22 03:50 Globulin 3.0 g/dL (1.3-4.6) 01/30/22 03:50 Discharge Plan Discharge Patient Disposition: Home Clinical Impression: Influenza A Condition: Stable Prescriptions: No Action hydroxyzine HCl 50 mg tablet 50 mg PO QID PRN (Reason: anxiety) Qty: 120 2RF propranolol 20 mg tablet 20 mg PO BID Qty: 60 2RF Tylenol Extra Strength 500 mg tablet 1,000 mg PO Q6H PRN (Reason: Pain) ibuprofen 200 mg Tablet 600 mg PO Q6H PRN (Reason: Pain) olanzapine 10 mg tablet 10 mg PO BEDTIME duloxetine 60 mg capsule,delayed release(DR/EC) 60 mg PO QAM Discharge Orders: Discharge ED (Routine); Ordered 01/30/22 Ordered By: Andra Perry Referrals: Serge Edward MD [Primary Care Provider] - 1-3 days Discharge Diet: Advance as tolerated Discharge Activity: Resume usual activity Patient Instructions: Influenza (ED) Coding Level of Care Code ED Pencils Washer for [place] Fwd Exam Comprehensive
--- NOTE | 2022-01-30 03:53 | ECG_ITS ---
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 Measurements Intervals [place] Rate: 82 P: 54 VT: 142 QRS: 5 QRSD: 92 T: 55 QT: 406 QTc: 476 Interpretive Statements SINUS RHYTHM POSSIBLE LEFT ATRIAL ENLARGEMENT [-0.1mV P-WAVE IN V1/V2] NONSPECIFIC T-WAVE ABNORMALITY Compared to ECG 11/14/2017 15:52:13 T-wave abnormality now present Electronically Signed On 01-31-2022 13:52:53 ENGINEERING MGR by Shirley Gonzalez M.D. [id number]
[2022-01-30] MEDS: ketorolac 30 mg/mL INJ 15 MG IVP (04:06)
[2022-01-30] MEDS: ondansetron 2 mg/ML SDV 2 mL 4 MG IVP (04:06)
[2022-01-30 04:15] LABS: Basophils % 0.1 %; Eosinophils % 0.2 %; Hematocrit 38.9 % (37.0-47.0); Hemoglobin 12.8 g/dL (11.5-15.3); Lymphocytes # 1.4 10^3/uL (0.8-4.8); Lymphocytes % 16.9 %; Mean Corpuscular HGB Conc 32.9 g/dL (30.0-36.0); Mean Corpuscular Hemoglobin 30.8 pg (28.0-34.0); Mean Corpuscular Volume 93.5 fl (81-99); Mean Platelet Volume 10.4 fL (7.4-10.4); Monocytes # 0.8 10^3/uL (0.2-0.9); Monocytes % 9.1 %; Neutrophils # 6.17 10^3/uL (1.8-7.7); Neutrophils % 73.6 %; Nucleated Red Blood Cells % 0 %; Platelet Count 251 10^3/cmm (130-400); Red Blood Count 4.16 10^6/uL (4.1-5.3); Red Cell Distribution Width 13.8 % (12.1-15.1); White Blood Count 8.4 10^3/uL (4.0-10.0)
[2022-01-30 04:40] LABS: Troponin(5th) Baseline 6 ng/L (0-10)
[2022-01-30 04:48] LABS: Alanine Aminotransferase 28 U/L (0-33); Albumin Level 4.3 g/dL (3.5-5.2); Alkaline Phosphatase 80 U/L (35-105); Aspartate Amino Transferase 29 U/L (0-32); Blood Urea Nitrogen 5 mg/dL (6-20); Calcium 9.4 mg/dL (8.5-10.5); Carbon Dioxide 23 mmol/L (22-29); Chloride 100 mmol/L (98-107); Glomerular Filtration Rate 173.4 mL/min (90-130); Glucose 143 mg/dL (65-115); NT Pro B Type Natriuretic Pept 44 pg/mL (0-125); Osmolality Calculated 278 mOsm/kg (285-295); Sodium 134 mmol/L (136-145); Total Bilirubin 0.5 mg/dL (0.15-1.2); Total Protein 7.3 g/dL (6.6-8.7)
[2022-01-30 04:49] LABS: Anion Gap 14.8 (5-19); Potassium 3.8 mmol/L (3.5-5.1)
[2022-01-30 05:02] VITALS: PULSE 94; RESP 18; O2SAT 92
== END 2022-01-30 05:00 | disposition home or self-care (01) ==
PROVIDERS: Emergency Provider Emergency Medicine; PCP Family Medicine
DX: J10.1 Influenza due to other identified influenza virus with other respiratory manifestations (principal); F17.210 Nicotine dependence, cigarettes, uncomplicated
CPT/HCPCS: 71045; 80053; 83880; 84484; 85025; 93005; 96374; 96375; 99285; J1885; J2405

== ENCOUNTER 2022-02-15 17:42 | Emergency (ER) | payer MEDICAID, SELFPAY ==
[2021-08-24 15:39] VITALS: BP 164/96; BMI 26.2
[2022-02-15] VITALS (7 sets, daily range): BP systolic 114–135; BP diastolic 68–82; PULSE 68–94; RESP 15–18; TEMP 36.6; O2SAT 95–100; BMI 27.4
--- NOTE | 2022-02-15 18:13 | ECG_ITS ---
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 Measurements Intervals [place] Rate: 82 P: 61 VA: 140 QRS: 4 QRSD: 78 T: 29 QT: 298 QTc: 349 Interpretive Statements SINUS RHYTHM POSSIBLE LEFT ATRIAL ENLARGEMENT [-0.1mV P-WAVE IN V1/V2] POSSIBLE RIGHT VENTRICULAR CONDUCTION DELAY [RSR (QR) IN V1/V2] NONSPECIFIC T-WAVE ABNORMALITY Compared to ECG 01/30/2022 03:53:56 No significant changes Electronically Signed On 02-16-2022 0:06:23 PLUG OVERWRAP MACHINE TENDER by Shirley Gonzalez M.D. [id number]
--- NOTE | 2022-02-15 19:00 | ED_ITS ---
HPI - Chest Pain General: Chief Complaint: Chest Pain Stated Complaint: chest/back pain/n/v Time Seen by Provider: 02/15/22 18:30 Source: patient Mode of arrival: ambulatory Limitations: no limitations History of Present Illness: 46-year-old female who states she had influenza over states that since then she been having sharp right-sided chest pain that is worse with deep inspiration she has been seen and told it was pleurisy she states her pain is sharp in nature rates it a 4 out of 10 currently she denies any vomiting denies any diarrhea denies any fever cough currently. Associated symptoms: Deny abdominal pain, dyspnea, fever(s), nausea or vomiting Review of Systems Const: Denies: fever(s), chills, body aches or change in appetite Eyes: Denies: blurry vision or eye discomfort ENMT: Denies: throat pain or dental pain Card: Reports: chest pain Resp: Denies: dyspnea GI: Denies: abdominal pain, nausea, vomiting or diarrhea : Denies: dysuria Musc: Denies: neck pain or back pain Skin/Breast: Denies: rash Neuro: Denies: headache(s) Psych: Denies: depression Iftikhar/Lymph: Denies: easy bruising All/Imm: Denies: urticaria PFSH ED PFSH: Medical History Compression fracture of L1 lumbar vertebra Hx of migraines Psychiatric care Surgical History H/O knee surgery History of back surgery Family History Other Family history non-contributory Social History Smoking and tobacco status: current every day smoker cigarettes Packs smoked per day: 0.5 Years cigarettes smoked: 25 Quit status (tobacco): has tried quititng Number of times tried to quit tobacco: 2 Second hand smoke exposure: Yes (Sometimes.) Smoking risk assessment/counseling performed?: No Alcohol intake: former Desire information about alcohol rehabilitation?: No Counseling given: No Desire information about substance/drug rehabilitation?: No Counseling given: No Physical Exam Const: COMMON NORMALS: no acute distress, patient oriented x3 and healthy appearing HENMT: COMMON NORMALS: normocephalic and atraumatic HEAD & SCALP: normocephalic and atraumatic Eye: COMMON NORMALS: Equal, round and reactive pupils present and EOMs intact bilaterally PUPIL: Yes Equal, round and reactive pupils present Neck/C-Spine: COMMON NORMALS: full ROM and supple Chest: COMMONS NORMALS: normal inspection of the chest and normal palpation of entire chest wall Resp: COMMON NORMALS: normal respiratory effort, No retractions, No use of accessory muscles and clear to auscultation bilaterally AUSCULTATION: clear to auscultation bilaterally Cardio: COMMON NORMALS: regular rate, regular rhythm and No murmurs present (Cardio) RATE: regular rate RHYTHM: regular rhythm GI: COMMON NORMALS: Normal to inspection, nondistended, normoactive bowel sounds present, Soft to palpation, non-tender and no masses PALPATION: Yes Soft to palpation Extremity: COMMON NORMALS: normal to inspection and full ROM Neuro: COMMON NORMALS: patient oriented x3, moves all extremities and no focal motor deficits Psych: COMMON NORMALS: mental status grossly normal, Normal thought process present and cooperative THOUGHT PROCESS: Normal thought process present Skin: COMMON NORMALS: no rashes or lesions noted and no wounds GENERAL SKIN EXAM: no rashes or lesions noted Course Vital Signs: Vital signs: Vital Signs Temperature 97.9 F 02/15/22 17:55 Pulse Rate 68 02/15/22 21:34 Respiratory Rate 18 02/15/22 21:34 Blood Pressure 117/68 02/15/22 21:34 Pulse Oximetry 100 02/15/22 21:34 Oxygen Delivery Me thod 02/15/22 21:34 MDM - Chest Pain Medical Decision Making Patient presents with chest pains atypical in nature likely pleuritic her blood work here is normal she has no signs of a pulmonary embolism her troponins are normal she is stable for discharge she is to follow-up with PCP and return if worsening. Lab Data 02/15/22 19:15 02/15/22 20:28 Laboratory Results WBC 6.8 10^3/uL (4.0-10.0) 02/15/22 19:15 RBC 3.91 10^6/uL (4.1-5.3) L 02/15/22 19:15 Hgb 12.2 g/dL (11.5-15.3) 02/15/22 19:15 Hct 37.6 % (37.0-47.0) 02/15/22 19:15 MCV 96.2 fl (81-99) 02/15/22 19:15 MCH 31.2 pg (28.0-34.0) 02/15/22 19:15 MCHC 32.4 g/dL (30.0-36.0) 02/15/22 19:15 RDW 14.3 % (12.1-15.1) 02/15/22 19:15 Plt Count 426 10^3/cmm (130-400) H 02/15/22 19:15 MPV 11.0 fL (7.4-10.4) H 02/15/22 19:15 Neut % (Auto) 54.2 % 02/15/22 19:15 Lymph % (Auto) 35.1 % 02/15/22 19:15 [place] % (Auto) 8.1 % 02/15/22 19:15 Eos % (Auto) 1.9 % 02/15/22 19:15 Baso % (Auto) 0.6 % 02/15/22 19:15 Neut # (Auto) 3.69 10^3/uL (1.8-7.7) 02/15/22 19:15 Lymph # (Auto) 2.4 10^3/uL (0.8-4.8) 02/15/22 19:15 [place] # (Auto) 0.6 10^3/uL (0.2-0.9) 02/15/22 19:15 Eos # (Auto) 0.1 10^3/uL (0.0-0.8) 02/15/22 19:15 Baso # (Auto) 0.0 10^3/uL (0.0-0.1) 02/15/22 19:15 Nucleated RBC % (auto) 0 % 02/15/22 19:15 Nucleated RBCs # 0.0 /100WBC 02/15/22 19:15 Sodium 140 mmol/L (136-145) 02/15/22 20:28 Potassium 3.6 mmol/L (3.5-5.1) 02/15/22 20:28 Chloride 105 mmol/L (98-107) 02/15/22 20:28 Carbon Dioxide 24 mmol/L (22-29) 02/15/22 20:28 Anion Gap 14.6 (5-19) 02/15/22 20:28 BUN 6 mg/dL (6-20) 02/15/22 20:28 Creatinine 0.6 mg/dL (0.5-0.9) 02/15/22 20:28 GFR Calculation 108.6 mL/min (90-130) 02/15/22 20:28 Glucose 109 mg/dL (65-115) 02/15/22 20:28 Calculated Osmolality 288 mOsm/kg (285-295) 02/15/22 20:28 Calcium 9.1 mg/dL (8.5-10.5) 02/15/22 20:28 Total Bilirubin 0.2 mg/dL (0.15-1.2) 02/15/22 20:28 AST 18 U/L (0-32) 02/15/22 20:28 ALT 18 U/L (0-33) 02/15/22 20:28 Alkaline Phosphatase 78 U/L (35-105) 02/15/22 20:28 Troponin T Baseline 6 ng/L (0-10) 02/15/22 19:15 Troponin T 120 Minute 6.00 ng/L (0-10) 02/15/22 20:28 Delta Troponin T 0 ABS# (0-10) 02/15/22 20:28 Total Protein 7.4 g/dL (6.6-8.7) 02/15/22 20:28 Albumin 4.0 g/dL (3.5-5.2) 02/15/22 20:28 Globulin 3.4 g/dL (1.3-4.6) 02/15/22 20:28 Discharge Plan Discharge Patient Disposition: Home Clinical Impression: Chest pain Condition: Stable Prescriptions: No Action hydroxyzine HCl 50 mg tablet 50 mg PO QID PRN (Reason: anxiety) Qty: 120 2RF propranolol 20 mg tablet 20 mg PO BID Qty: 60 2RF Tylenol Extra Strength 500 mg tablet 1,000 mg PO Q6H PRN (Reason: Pain) ibuprofen 200 mg Tablet 600 mg PO Q6H PRN (Reason: Pain) olanzapine 10 mg tablet 10 mg PO BEDTIME duloxetine 60 mg capsule,delayed release(DR/EC) 60 mg PO QAM Discharge Orders: Discharge ED (Routine); Ordered 02/15/22 Ordered By: Andra Perry Referrals: Serge Edward MD [Primary Care Provider] - 1-3 days Discharge Diet: Advance as tolerated Discharge Activity: Resume usual activity Patient Instructions: Chest Pain (ED) Coding Level of Care Code ED Multi Disciplined Language Analyst for Chg Fwd Exam Comprehensive
[2022-02-15] MEDS: ketorolac 30 mg/mL INJ 15 MG IVP (19:26)
[2022-02-15 19:47] LABS: Basophils % 0.6 %; Eosinophils # 0.1 10^3/uL (0.0-0.8); Eosinophils % 1.9 %; Hematocrit 37.6 % (37.0-47.0); Hemoglobin 12.2 g/dL (11.5-15.3); Lymphocytes # 2.4 10^3/uL (0.8-4.8); Lymphocytes % 35.1 %; Mean Corpuscular HGB Conc 32.4 g/dL (30.0-36.0); Mean Corpuscular Hemoglobin 31.2 pg (28.0-34.0); Mean Corpuscular Volume 96.2 fl (81-99); Monocytes # 0.6 10^3/uL (0.2-0.9); Monocytes % 8.1 %; Neutrophils # 3.69 10^3/uL (1.8-7.7); Neutrophils % 54.2 %; Nucleated Red Blood Cells % 0 %; Platelet Count 426 10^3/cmm (130-400); Red Blood Count 3.91 10^6/uL (4.1-5.3); Red Cell Distribution Width 14.3 % (12.1-15.1); White Blood Count 6.8 10^3/uL (4.0-10.0)
--- NOTE | 2022-02-15 20:13 | ECG_ITS ---
[facility] Test Date: 2022-02-15 Pat Name: Mitra Coon Department: Room: Gender: Female Manager Books: : 1975 Requested By: Andra Perry Order Number: [id number] Nella MD: Shirley Gonzalez M.D. Measurements Intervals [place] Rate: 72 P: 72 [place]: 133 QRS: 43 QRSD: 89 T: 60 QT: 401 QTc: 442 Interpretive Statements SINUS RHYTHM NONSPECIFIC T-WAVE ABNORMALITY Compared to ECG 02/15/2022 18:13:04 No significant changes Electronically Signed On 02-16-2022 18:20:41 OIL DIPPER by Shirley Gonzalez M.D. [email or web address]/[id number]
[2022-02-15 20:33] LABS: Troponin(5th) Baseline 6 ng/L (0-10)
[2022-02-15] MEDS: morphine 4 mg/mL SDV 1 mL IVP (20:37)
[2022-02-15] MEDS: ondansetron 2 mg/ML SDV 2 mL 4 MG IVP (20:37)
[2022-02-15 21:02] LABS: Alanine Aminotransferase 18 U/L (0-33); Alkaline Phosphatase 78 U/L (35-105); Anion Gap 14.6 (5-19); Aspartate Amino Transferase 18 U/L (0-32); Blood Urea Nitrogen 6 mg/dL (6-20); Calcium 9.1 mg/dL (8.5-10.5); Carbon Dioxide 24 mmol/L (22-29); Chloride 105 mmol/L (98-107); Globulin 3.4 g/dL (1.3-4.6); Glomerular Filtration Rate 108.6 mL/min (90-130); Glucose 109 mg/dL (65-115); Osmolality Calculated 288 mOsm/kg (285-295); Potassium 3.6 mmol/L (3.5-5.1); Sodium 140 mmol/L (136-145); Total Bilirubin 0.2 mg/dL (0.15-1.2); Total Protein 7.4 g/dL (6.6-8.7)
--- NOTE | 2022-02-15 21:06 | XRR_ITS ---
PROCEDURE INFORMATION: Exam: XR Chest Exam date and time: 02/15/2022 9:32 PM Age: 46 years old Clinical indication: Pain; Angina pectoris and chest pressure; Additional info: Cp TECHNIQUE: Imaging protocol: Radiologic exam of the chest. Views: 1 view. COMPARISON: CR (CHEST, ) 01/30/2022 5:06 AM FINDINGS: Lungs: There is no consolidation. Pleural spaces: There is no pleural effusion or pneumothorax. Heart/Mediastinum: Cardiomediastinal contours are unremarkable. Bones/joints: Bones are unremarkable. XR/XR chest 1V portable [id number] IMPRESSION: No acute findings.
[2022-02-15 21:35] LABS: Troponin 5 2HR Delta 0 ABS# (0-10)
== END 2022-02-15 21:44 | disposition home or self-care (01) ==
PROVIDERS: Emergency Provider Emergency Medicine; PCP Family Medicine
DX: R07.9 Chest pain, unspecified (principal); F17.210 Nicotine dependence, cigarettes, uncomplicated
CPT/HCPCS: 36415; 71045; 80053; 84484; 85025; 93005; 96374; 96375; 99285; J1885; J2270; J2405

== ENCOUNTER 2022-03-08 10:56 | Outpatient (CLI) | payer MEDICAID, SELFPAY ==
[2021-08-24 15:39] VITALS: BP 164/96; BMI 26.2
--- NOTE | 2022-03-08 11:07 | MM_ITS ---
WS: [id number] BILATERAL 3D TOMOSYNTHESIS DIGITAL SCREENING MAMMOGRAPHY WITH CAD CLINICAL INFORMATION: SCREENING HISTORY: Screening mammogram. No current complaints. COMPARISON: None. TECHNIQUE: Bilateral CC and MLO views. FINDINGS: The breasts are composed of heterogeneous fibroglandular density tissue, which can limit the detectio n of small underlying mass lesions. No suspicious mass, asymmetry, calcifications, or architectural d istortion. No evidence of malignancy. Dense breast tissue upper outer breast RIGHT greater than LEFT. MM/[place] [id number] IMPRESSION: BI-RADS: 2-Benign FOLLOW UP: 1 Year Follow-up Recommend return to annual screening mammography.
== END 2022-03-08 10:57 | disposition home or self-care (01) ==
LOC: RAD 11:00
PROVIDERS: PCP Family Medicine; Visit Provider Family Medicine
DX: Z12.31 Encounter for screening mammogram for malignant neoplasm of breast (principal)
CPT/HCPCS: 77063; 77067

== ENCOUNTER 2022-06-25 08:47 | Emergency (ER) | payer MEDICAID, SELFPAY ==
[2021-08-24 15:39] VITALS: BP 164/96; BMI 26.2
[2022-06-25 09:01] VITALS: BP 157/106; PULSE 80; RESP 18; TEMP 36.5; O2SAT 97
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
[2022-06-25 10:01] VITALS: BP 208/105; PULSE 82; RESP 18; O2SAT 94
[2022-06-25 10:18] VITALS: BP 208/105; PULSE 82; RESP 18; O2SAT 94
--- NOTE | 2022-06-29 15:24 | DCPLANNER ---
storage center manager called patient due to no primary care physician - patient declines at this time.
== END 2022-06-25 10:10 | disposition home or self-care (01) ==
PROVIDERS: Emergency Provider Physician Assistant
DX: S60.221A Contusion of right hand, initial encounter (principal); F17.210 Nicotine dependence, cigarettes, uncomplicated; W22.8XXA Striking against or struck by other objects, initial encounter
CPT/HCPCS: 73130; 99283

== ENCOUNTER → 2022-09-29 08:46 | Outpatient (BNVA) | payer MEDICAID, SELFPAY ==
[2021-08-24 15:39] VITALS: BP 164/96; BMI 26.2
== END ==
PROVIDERS: Visit Provider Nurse Practitioner Psychiatric/Mental Health
DX: Z79.899 Other long term (current) drug therapy (principal)
CPT/HCPCS: 80053; 80061; 80306; 83036

== ENCOUNTER 2022-10-27 06:22 | Emergency (ER) | payer MEDICAID, SELFPAY ==
[2021-08-24 15:39] VITALS: BP 164/96; BMI 26.2
[2022-10-27 06:43] VITALS: BP 131/83; PULSE 91; RESP 16; O2SAT 92; BMI 29.0
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
[2022-10-27] MEDS: ketorolac 30 mg/mL INJ IVP (07:02)
[2022-10-27] MEDS: sodium chloride 0.9% 1,000 ML 999 ML IV (07:03)
[2022-10-27] MEDS: promethazine 25 mg/mL SDV 1 mL IM (07:03)
[2022-10-27 07:10] LABS: Basophils % 0.5 %; Eosinophils % 0.5 %; Hematocrit 39.9 % (36-47); Lymphocytes # 1.1 10^3/uL (0.8-4.8); Lymphocytes % 12.5 %; Mean Corpuscular HGB Conc 33.1 g/dL (30-55); Mean Corpuscular Hemoglobin 30.6 pg (27-33); Mean Corpuscular Volume 92.4 fl (85-98); Mean Platelet Volume 9.4 fL (7.4-10.4); Monocytes # 0.7 10^3/uL (0.2-0.9); Monocytes % 7.8 %; Neutrophils # 6.77 10^3/uL (1.8-7.7); Neutrophils % 78.5 %; Nucleated Red Blood Cells % 0 %; Platelet Count 243 10^3/cmm (157-399); Red Blood Count 4.32 10^6/uL (3.85-5.65); Red Cell Distribution Width 12.7 % (12.1-15.1); White Blood Count 8.62 10^3/uL (3.29-11.43)
[2022-10-27 07:31] LABS: Alanine Aminotransferase 42 U/L (0-33); Albumin Level 4.2 g/dL (3.5-5.2); Alkaline Phosphatase 91 U/L (35-105); Anion Gap 14.8 (5-19); Aspartate Amino Transferase 62 U/L (0-32); Blood Urea Nitrogen 9 mg/dL (6-20); Calcium 8.9 mg/dL (8.5-10.5); Carbon Dioxide 24 mmol/L (22-29); Chloride 99 mmol/L (98-107); Globulin 3.3 g/dL (1.3-4.6); Glomerular Filtration Rate 133.4 mL/min (90-130); Glucose 194 mg/dL (65-115); Osmolality Calculated 282 mOsm/kg (285-295); Potassium 3.8 mmol/L (3.5-5.1); Sodium 134 mmol/L (136-145); Total Bilirubin 0.9 mg/dL (0.15-1.2); Total Protein 7.5 g/dL (6.6-8.7)
[2022-10-27] MEDS: valproic acid inj 500 MG in sodium chloride 0.9% 50 ML 55 MG IV (07:58)
[2022-10-27 08:02] VITALS: BP 114/84; PULSE 83; RESP 16; O2SAT 93
[2022-10-27 09:48] VITALS: BP 114/84; PULSE 83; RESP 16; O2SAT 93
== END 2022-10-27 09:49 | disposition home or self-care (01) ==
PROVIDERS: Emergency Provider Family Medicine
DX: R51.9 Headache, unspecified (principal); F17.210 Nicotine dependence, cigarettes, uncomplicated
CPT/HCPCS: 80053; 85025; 96361; 96365; 96372; 96374; 99284; J1885; J2550; J3490; J7030

== ENCOUNTER → 2022-12-01 14:40 | Outpatient (BNVA) | payer MEDICAID, SELFPAY ==
[2021-08-24 15:39] VITALS: BP 164/96; BMI 26.2
== END ==
PROVIDERS: Referring Provider Family Medicine Adult Medicine; Visit Provider Orthopaedic Surgery
DX: M48.062 Spinal stenosis, lumbar region with neurogenic claudication (principal)
CPT/HCPCS: 72100

== ENCOUNTER 2022-12-11 14:40 | Inpatient (IN) | payer MEDICAID, SELFPAY ==
[2021-08-24 15:39] VITALS: BP 164/96; BMI 26.2
[2022-12-11] VITALS (31 sets, daily range): BP systolic 87–136; BP diastolic 51–77; PULSE 91–143; RESP 15–24; TEMP 36.7–36.8; O2SAT 95–100; BMI 30.7
[2022-12-11 15:04] LABS: Basophils # 0.1 10^3/uL (0.0-0.1); Basophils % 0.6 %; Eosinophils # 0.1 10^3/uL (0.0-0.8); Eosinophils % 1.7 %; Hematocrit 42.2 % (36-47); Lymphocytes % 25.7 %; Mean Corpuscular HGB Conc 33.2 g/dL (30-55); Mean Corpuscular Hemoglobin 30.8 pg (27-33); Mean Corpuscular Volume 92.7 fl (85-98); Mean Platelet Volume 10.3 fL (7.4-10.4); Monocytes # 0.6 10^3/uL (0.2-0.9); Monocytes % 7.9 %; Neutrophils # 4.98 10^3/uL (1.8-7.7); Neutrophils % 63.8 %; Nucleated Red Blood Cells % 0 %; Platelet Count 311 10^3/cmm (157-399); Red Blood Count 4.55 10^6/uL (3.85-5.65); Red Cell Distribution Width 12.5 % (12.1-15.1); White Blood Count 7.81 10^3/uL (3.29-11.43)
[2022-12-11] MEDS: sodium chloride 0.9% 1,000 ML 999 ML IV ×2 (15:05→15:50)
--- NOTE | 2022-12-11 15:05 | XRR_ITS ---
PROCEDURE INFORMATION: Exam: XR Chest Exam date and time: 12/11/2022 3:48 PM Age: 47 years old Clinical indication: Device placement; Ng tube; Patient HX: Found unresponsive; Potential overdose; Ett/og placement TECHNIQUE: Imaging protocol: Radiologic exam of the chest. Views: 1 view. COMPARISON: CR XR chest 1V portable [id number] 02/15/2022 9:32 PM FINDINGS: Tubes, catheters and devices: There is an ET tube 3 cm above the glenn in adequate position. There is an OG tube extending below the field of view into the stomach. Lungs: Few indistinct opacities projecting left lower lobe over the left heart border likely representing either subsegmental atelectasis or small pneumonic infiltrate. Remaining lung cain are essentially clear for degree of aeration. Pleural spaces: Unremarkable. No pleural effusion. No pneumothorax. Heart/Mediastinum: Unremarkable. No cardiomegaly. Diaphragm: Mild elevation right hemidiaphragm. Bones/joints: Unremarkable for age. XR/XR chest 1V portable [id number] IMPRESSION: 1. Tubes and lines appear in adequate position. 2. Nonspecific patchy left lower lobe opacities as discussed above.
[2022-12-11 15:06] LABS: Glucose Point of Care 293 mg/dL (70-110)
[2022-12-11 15:14] LABS: ABG PCO2 37.3 mmHg (35-45); ABG PH Result 7.48 (7.35-7.45); Alveolar-Arterial Oxygen Gradi 7.9 mmHg (5-10); Arterial Blood Gas Hematocrit 40.7 % (37-47); Base Excess ABG 4.4 mmol/L (-2.0-2.0); Blood Gas Allen Test Pos; Blood Gas LPM 1.5 %; Blood Gas Operator Identificat MONRO; Blood Gas Sample Site Brachial, right; Blood Gas Sample Type Arterial; Carboxyhemoglobin 1.6 %THgb (0.4-20.1); Ionized Calcium Level - ABG 1.2 mmol/L (1.1-1.4); Methemoglobin < 0.0 % (0.4-1.5); Oxygen Device NC; Oxygen Saturation ABG 97.3; PO2 ABG 77.4 mmHg (80.0-100.0); Potassium Level - ABG 3.2 mmol/L (3.5-5.0); Total Hemoglobin 13.3 g/dL (12-16)
[2022-12-11 15:16] LABS: Ketone (Acetest) Serum Negative (Negative)
[2022-12-11 15:18] LABS: Alanine Aminotransferase 35 U/L (0-33); Alkaline Phosphatase 118 U/L (35-105); Anion Gap 15.3 (5-19); Aspartate Amino Transferase 28 U/L (0-32); Blood Urea Nitrogen 7 mg/dL (6-20); Calcium 9.2 mg/dL (8.5-10.5); Carbon Dioxide 27 mmol/L (22-29); Chloride 95 mmol/L (98-107); Globulin 3.4 g/dL (1.3-4.6); Glomerular Filtration Rate 90.5 mL/min (90-130); Glucose 322 mg/dL (65-115); Osmolality Calculated 288 mOsm/kg (285-295); Potassium 3.3 mmol/L (3.5-5.1); Salicylate 0.6 mg/dL (3-10); Sodium 134 mmol/L (136-145); Total Bilirubin 0.4 mg/dL (0.15-1.2); Total Protein 7.4 g/dL (6.6-8.7)
--- NOTE | 2022-12-11 15:18 | ECG_ITS ---
[facility] Test Date: 2022-12-11 Pat Name: Mitra Coon Department: Room: Gender: Female Hand Model: : 1975 Requested By: Onofre Dobson Order Number: [id number] Nella MD: Shyam Lee M.D. Measurements Intervals [place] Rate: 145 P: 50 OK: 97 QRS: 1 QRSD: 86 T: 64 QT: 332 QTc: 516 Interpretive Statements SINUS TACHYCARDIA WITH SHORT OK INTERVAL, POSSIBLE ATRIAL FLUTTER NONSPECIFIC T-WAVE ABNORMALITY Compared to ECG 02/15/2022 20:54:08 Sinus rhythm no longer present T-wave abnormality still present Electronically Signed On 12-11-2022 22:52:05 CDT by Shyam Lee M.D. [email or web address]
--- NOTE | 2022-12-11 15:26 | PC.PHAR ---
MEDICATION ENTERED ARE FROM PREVIOUSLY ENTERED MED LIST AND WHAT EXT MED HISTORY SHOWS HAS BEEN FILLED RECENTLY-SEROQUEL NOT PTS MED PT STATES IT WAS HER BOYFRIENDS MEDS (DARON CALDERON [birth year]) CALLED [facility] FILLED SEROQUEL (PLAIN) 300MG HS 09/12/22 90D/S
[2022-12-11 15:36] LABS: Acetaminophen < 5.0 ug/mL (10-30); Lipase 44 U/L (13-60); Magnesium 1.9 mg/dL (1.7-2.3)
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
[2022-12-11 15:51] LABS: Lactic Sepsis W/Reflex 2.6 mmol/L (0.5-2.2)
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
[2022-12-11] MEDS: tetanus-dipt-pertussis 0.5 mL SDV IM (16:26)
[2022-12-11 16:48] LABS: Procalcitonin 0.07 ng/mL (0-0.5)
[2022-12-11 17:10] LABS: Reflex Lactate Order REFLEX LACTIC ORDERD
[2022-12-11 17:10] LABS: ABG PCO2 43.2 mmHg (35-45); Alveolar-Arterial Oxygen Gradi 32.3 mmHg (5-10); Arterial Blood Gas Hematocrit 37.5 % (37-47); Base Excess ABG 1.3 mmol/L (-2.0-2.0); Blood Gas Allen Test Pos; Blood Gas Operator Identificat MONRO; Blood Gas Sample Site Brachial, left; Blood Gas Sample Type Arterial; Blood Gas Tidal Volume 0.45; HCO3 ABG 26.5 mmol/L (22-26); HGB O2 Sat 98.3 % (95-100); Ionized Calcium Level - ABG 1.2 mmol/L (1.1-1.4); Oxygen Device VENT; Oxygen Saturation ABG 99.3; Potassium Level - ABG 2.9 mmol/L (3.5-5.0); Total Hemoglobin 12.2 g/dL (12-16)
[2022-12-11] MEDS: FUROsemide 10 mg/mL SDV 2mL 20 MG IVP (17:22)
[2022-12-11] MEDS: piperacillin-tazobactam 3.375 GM in sodium chloride 0.9% (plus) 50 ML IV (17:23)
[2022-12-11] MEDS: pantoprazole 40 mg SDV IVP (17:23)
[2022-12-11 17:26] LABS: Estmated Average Glucose 157; Hemoglobin A1C 7.1 % (4.0-6.0)
[2022-12-11 17:37] LABS: Add Urine Microscopic? YES; Bilirubin Urine Neg (Negative); Blood Urine Neg (Negative); Glucose Urine UA 4+ (Normal); Ketones Urine 1+ (Negative); Leukocyte Esterase Urine Negative (Negative); Nitrate Urine Positive (Negative); Protein Urine Neg (Negative); Specific Gravity, Urine 1.005 (1.005-1.030); Urine Appearance Clear (CLEAR); Urine Color Yellow (Yellow); Urobilinogen Urine Norm (Negative); pH Urine 5 (5-7)
[2022-12-11] MEDS: potassium chloride premix 100 ML 25 MEQ IV (17:37)
[2022-12-11 17:38] LABS: Add Urine Culture? Yes; Bacteria Urine 4+ /hpf; RBC Urine 0-4 /hpf (0-2); Squamous Epithelial Cell Urine 0-4 /hpf (0-5); WBC Urine 0-4 /hpf (0-5)
[2022-12-11 17:42] LABS: Amphetamines Screen Urine Positive (Negative); Barbiturates Screen Urine Negative (Negative); Benzodiazepines Screen Urine Positive (Negative); Cocaine Screen Urine Negative (Negative); Opiate Screen Urine Negative (Negative); PCP Screen Urine Negative (Negative); THC Screen Urine Positive (Negative)
[2022-12-11] MEDS: dextrose 5%-sod chloride 0.9% 1,000 ML 75 ML IV (17:55)
--- NOTE | 2022-12-11 18:01 | PC.NURSE ---
This nurse gave 20 mg of etomidate at 1521, then gave 100 mg of succinylcholine at 1521. This nurse then gave 50 mg of propofol at 1527. I then gave 10 mg of vecuronium at 1531.
[2022-12-11 19:42] LABS: Lactic Acid level (Lactate) 1.8 mmol/L (0.5-2.2)
[2022-12-11] MEDS: propofol 1,000 MG/100 ML INJ 7.76 MG IV (19:52)
[2022-12-11] MEDS: lidocaine 1% 5 ML in potassium chloride premix 100 ML 26.25 ML IV (22:28)
[2022-12-11 22:50] LABS: Alcohol Level < 10 mg/dL (0-10)
--- NOTE | 2022-12-11 23:30 | PC.NURSE ---
Addendum entered by Aislinn Verdin RN 12/11/22 23:34: witnessed waste of versed. Original Note: Wasted 96.25 mL versed drip with GUSTAVO Tao.
[2022-12-12] VITALS (39 sets, daily range): BP systolic 93–147; BP diastolic 56–97; PULSE 86–101; RESP 12–27; TEMP 36.7–37.2; O2SAT 94–100
[2022-12-12] MEDS: piperacillin-tazobactam 3.375 GM in sodium chloride 0.9% (plus) 50 ML IV ×3 (02:28→17:25)
[2022-12-12 03:05] LABS: Blood Gas Allen Test Pos; Blood Gas Sample Site Radial, right; Blood Gas Sample Type Arterial
[2022-12-12 03:23] LABS: ABG PCO2 40.5 mmHg (35-45); ABG PH Result 7.44 (7.35-7.45); Base Excess ABG 3.3 mmol/L (-2.0-2.0); HCO3 ABG 27.7 mmol/L (22-26); PO2 ABG 85.5 mmHg (80.0-100.0)
[2022-12-12 03:24] LABS: Arterial Blood Gas Hematocrit 36.3 % (37-47); Oxygen Device vent
[2022-12-12] MEDS: propofol 1,000 MG/100 ML INJ 15.51 MG IV (04:13)
[2022-12-12 04:16] LABS: Basophils % 0.5 %; Eosinophils # 0.1 10^3/uL (0.0-0.8); Eosinophils % 1.4 %; Hematocrit 34.6 % (36-47); Lymphocytes # 1.9 10^3/uL (0.8-4.8); Mean Corpuscular HGB Conc 32.7 g/dL (30-55); Mean Corpuscular Hemoglobin 30.5 pg (27-33); Mean Corpuscular Volume 93.5 fl (85-98); Mean Platelet Volume 10.2 fL (7.4-10.4); Monocytes # 0.6 10^3/uL (0.2-0.9); Monocytes % 10.1 %; Neutrophils # 3.22 10^3/uL (1.8-7.7); Neutrophils % 54.8 %; Nucleated Red Blood Cells % 0 %; Platelet Count 213 10^3/cmm (157-399); Red Cell Distribution Width 12.8 % (12.1-15.1); White Blood Count 5.87 10^3/uL (3.29-11.43)
[2022-12-12 04:31] LABS: Blood Urea Nitrogen 6 mg/dL (6-20); Calcium 7.6 mg/dL (8.5-10.5); Carbon Dioxide 25 mmol/L (22-29); Chloride 106 mmol/L (98-107); Creatinine Clr Calc Pharmacy 157.1332; Glomerular Filtration Rate 133.4 mL/min (90-130); Glucose 173 mg/dL (65-115); Magnesium 1.9 mg/dL (1.7-2.3); Osmolality Calculated 284 mOsm/kg (285-295); Phosphorus 1.5 mg/dL (2.5-4.5); Sodium 136 mmol/L (136-145)
[2022-12-12 04:32] LABS: Anion Gap 8.7 (5-19); Potassium 3.7 mmol/L (3.5-5.1)
[2022-12-12] MEDS: dextrose 5%-sod chloride 0.9% 1,000 ML 75 ML IV ×2 (05:55→19:35)
--- NOTE | 2022-12-12 08:05 | ECG_ITS ---
[facility] Test Date: 2022-12-12 Pat Name: Mitra Coon Department: Room: [facility] Gender: Female Inspector Watch Assembly: : 1975 Requested By: Sandra Werner Order Number: [id number] Nella MD: Janna Yoo M.D. Measurements Intervals [place] Rate: 90 P: 42 PA: 147 QRS: 2 QRSD: 86 T: 32 QT: 368 QTc: 452 Interpretive Statements SINUS RHYTHM NONSPECIFIC T-WAVE ABNORMALITY Compared to ECG 12/11/2022 15:27:28 No significant changes Electronically Signed On 12-12-2022 9:59:52 CDT by Janna Yoo M.D. [id number]
[2022-12-12] MEDS: pantoprazole 40 mg SDV IVP ×2 (08:26→17:26)
--- NOTE | 2022-12-12 10:51 | PM.PN ---
Subjective Subjective: Weaning trial today, plan to extubate her do speech evaluation once she is able to start eating and ambulate on her own we will transfer her to the Neuropsych Unit Turn off sedation this morning Minimal vent settings No fever No leukocytosis QTc interval: 452 Drug screen positive for meth and marijuana Vitals/I&O/Wt Last Vital Signs Temp 98.4 F 12/12/22 04:45 Pulse 95 12/12/22 07:43 Resp 14 12/12/22 10:42 BP 124/79 12/12/22 05:30 Pulse Ox 95 12/12/22 10:42 O2 Del Method Mechanical Ventilation 12/12/22 07:43 FiO2 25 12/12/22 10:42 12/11/22 12/12/22 12/12/22 22:59 06:59 14:59 Intake Total 2204.682 / 2204.682 1257.119 / 3461.801 Output Total 50 / 50 675 / 725 Balance 2154.682 / 2154.682 582.119 / 2736.801 Weight last 48 hrs Weight 86.183 kg Physical Exam Narrative: Euvolemic Exam is limited Abdomen soft Vitiligo Rodriguez catheter in place Abdomen is soft S1, S2 Minimal vent settings FiO2 25% Urinary Catheter Management: Rodriguez: Cath Placed During This Visit: yes Reason for Continuing Indwelling Catheter: Accurate Measurement of Urinary Output in Critically Ill Patients Urinary Catheter Date of Insertion: 12/11/22 Urinary Catheter Time of Insertion: 15:28 Data 12/12/22 03:49 12/12/22 03:49 Micro: Microbiology 12/11/22 17:15 Urine Culture - Preliminary Urine,Clean Catch Gram Negative Rods 12/11/22 17:15 Gram Stain - Final Sputum - Endotracheal Tube Aspirate 12/11/22 18:55 Blood Culture - Preliminary Blood SPECIMEN COLLECTED 12/11/22 18:55 Blood Culture - Preliminary Blood SPECIMEN COLLECTED A&P Assessment and plan (1) Suicide attempt by drug overdose: (2) Multiple lacerations: (3) Polysubstance abuse: (4) Diabetes mellitus type 2 in obese: (5) History of back surgery: (6) Chronic neck and back pain: (7) Sexual masochism: (8) Borderline personality disorder: (9) Alcohol dependence: (10) Marijuana use, episodic: (11) Opioid use disorder: (12) Psychiatric care: Plan Drug overdose Polysubstance abuse Weaning trial today Patient was intubated in the ER by the ER physician for low GCS to protect her airway No QTc prolongation 452 as per today's EKG Off Levophed She required vasopressors because of polypharmacy drug overdose We will do a weaning trial, extubate her do physical therapy speech evaluation then send her to neuropsych unit Suicide attempt Multiple lacerations left arm which were sutured by the ER physician She does have aspiration pneumonia for which she is getting antibiotics Lactic acid has improved in my opinion lactic acid is type II Attestations Medical Necessity Statement*: Continue medical management Diagnoses Suicide attempt by drug overdose T50.902A Multiple lacerations T07.XXXA Polysubstance abuse F19.10 Diabetes mellitus type 2 in obese E11.69; E66.9 History of back surgery Z98.890 Chronic neck and back pain M54.2; M54.9; G89.29 Sexual masochism F65.51 Borderline personality disorder F60.3 Alcohol dependence F10.20 Marijuana use, episodic F12.90 Opioid use disorder F11.90 Psychiatric care
--- NOTE | 2022-12-12 13:45 | PC.NURSE ---
Patient awake, following commands, Dr. Werner gave v.o. to extubate patient, extubated per RT
--- NOTE | 2022-12-12 16:59 | USCV_ITS ---
Mitra Coon Age: 47 Gender: F : 1975 Exam Date: 12/12/2022 06:06 Ordering Phys: Sandra Werner MD Technologist: Filemon Hallman Exam Location: [facility] [place] Indication: seroquel BP: 109 / 61 HR: 94 Rhythm: Sinus Technical Quality: Adequate MEASUREMENTS (Male / Female) Normal Values 2D ECHO LV Diastolic Diameter PLAX 4.1 cm 4.2 - 5.9 / 3.9 - 5.3 cm LV Systolic Diameter PLAX 2.9 cm IVS Diastolic Thickness 0.8 cm 0.6 - 1.0 / 0.6 - 0.9 cm IVS Systolic Thickness 1.5 cm LVPW Diastolic Thickness 0.9 cm 0.6 - 1.0 / 0.6 - 0.9 cm LVPW Systolic Thickness 1.3 cm LVOT Diameter 2.0 cm LV Ejection Fraction 2D Teich 56.6 % LV Ejection Fraction MOD 2C 66.7 % LV Ejection Fraction 2C AL 66.4 % LA Diameter 2.6 cm IVC Diameter 2.1 cm M-MODE Aortic Annulus Diameter 2.5 cm LA Ao Ratio MM 1.0 MV E Point Septal Separation 0.5 cm DOPPLER AV Peak Velocity 139.0 cm/s LVOT Peak Velocity 101.0 cm/s AV Area Cont Eq vti 2.3 cm squared AV Area Cont Eq pk 2.2 cm squared MV Area PHT 5.0 cm squared Mitral E to A Ratio 1.0 MV E' Velocity 36.0 cm/s Mitral E to MV E' Ratio 5.6 Mitral E to LV E' Lateral Ratio 5.9 Mitral E to LV E' Septal Ratio 5.3 TR Peak Velocity 134.7 cm/s TR Peak Gradient 7.3 mmHg TV Peak E Velocity 68.0 cm/s Right Atrial Pressure 3.0 mmHg Pulmonary Artery Systolic Pressu 10.3 mmHg RV Acceleration Time 0.2 s FINDINGS Left Ventricle Left ventricle is normal size. LV systolic function is normal with EF of 55 to 60%. No regional wall motion abnormalities are seen. Right Ventricle Normal in size and function Right Atrium Normal in size Left Atrium Normal in size Mitral Valve Structurally normal mitral valve. Aortic Valve Structurally normal aortic valve. No significant stenosis or regurgitation. Tricuspid Valve Mild tricuspid regurgitation. Pulmonary artery systolic pressure is normal. Pulmonic Valve Trace pulmonic regurgitation Pericardium Normal Aorta Normal in size IVC Not well visualized CONCLUSIONS LV systolic function is normal with EF 55 to 60%. Mild tricuspid regurgitation Trace pulmonic regurgitation No comparison studies are available. Shyam Lee MD (Electronically Signed) Final Date: 12 December 2022 19:24 S
[2022-12-12] MEDS: FUROsemide 10 mg/mL SDV 2mL 20 MG IVP (17:25)
--- NOTE | 2022-12-12 18:18 | PC.NURSE ---
Foly removed per patient request
[2022-12-13] VITALS (19 sets, daily range): BP systolic 115–154; BP diastolic 73–103; PULSE 81–103; RESP 16–26; TEMP 36.8–37; O2SAT 90–97; BMI 30.7
[2022-12-13] MEDS: piperacillin-tazobactam 3.375 GM in sodium chloride 0.9% (plus) 50 ML IV ×2 (02:41→08:41)
[2022-12-13 06:32] LABS: Basophils % 0.6 %; Eosinophils # 0.1 10^3/uL (0.0-0.8); Eosinophils % 1.7 %; Lymphocytes # 2.3 10^3/uL (0.8-4.8); Lymphocytes % 32.4 %; Mean Corpuscular HGB Conc 32.7 g/dL (30-55); Mean Corpuscular Hemoglobin 31.2 pg (27-33); Mean Corpuscular Volume 95.4 fl (85-98); Monocytes # 0.5 10^3/uL (0.2-0.9); Monocytes % 7.2 %; Neutrophils # 4.11 10^3/uL (1.8-7.7); Neutrophils % 57.8 %; Nucleated Red Blood Cells % 0 %; Platelet Count 216 10^3/cmm (157-399); Red Blood Count 3.88 10^6/uL (3.85-5.65); Red Cell Distribution Width 12.9 % (12.1-15.1)
[2022-12-13 06:52] LABS: Blood Urea Nitrogen 4 mg/dL (6-20); Calcium 8.1 mg/dL (8.5-10.5); Carbon Dioxide 25 mmol/L (22-29); Chloride 104 mmol/L (98-107); Glomerular Filtration Rate 108.1 mL/min (90-130); Glucose 146 mg/dL (65-115); Osmolality Calculated 284 mOsm/kg (285-295); Sodium 137 mmol/L (136-145)
[2022-12-13 06:56] LABS: Anion Gap 11.8 (5-19); Potassium 3.8 mmol/L (3.5-5.1)
[2022-12-13] MEDS: pantoprazole 40 mg SDV IVP (08:41)
[2022-12-13 09:15] LABS: Vitamin B12 (Cobalamin) 444 pg/mL (200-1100)
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
--- NOTE | 2022-12-13 17:40 | ECG_ITS ---
[facility] Test Date: 2022-12-13 Pat Name: Mitra Coon Department: Room: 126 Gender: Female Authorization Rep: : 1975 Requested By: Scott Hayward Order Number: [id number] Nella MD: Shyam Lee M.D. Measurements Intervals [place] Rate: 89 P: 59 DC: 143 QRS: 20 QRSD: 80 T: 50 QT: 359 QTc: 438 Interpretive Statements SINUS RHYTHM Compared to ECG 12/12/2022 09:47:19 T-wave abnormality no longer present Electronically Signed On 12-13-2022 23:09:25 CDT by Shyam Lee M.D. [id number]
[2022-12-13] MEDS: flu vacc pf 2023-24 (6 mos+) 60 MCG IM (18:17)
[2022-12-13] MEDS: amoxicillin-clav 875-125 mg Tablet 1 TAB PO (18:17)
[2022-12-13] MEDS: nicotine 2 mg Gum BUCCAL (18:33)
[2022-12-14 06:00] VITALS: BP 141/94; PULSE 109; RESP 17; TEMP 37; O2SAT 95
--- NOTE | 2022-12-14 07:50 | ECG_ITS ---
[facility] Test Date: 2022-12-14 Pat Name: Mitra Coon Department: Room: 126 Gender: Female Lacemaker: : 1975 Requested By: Scott Hayward Order Number: [id number] Nella MD: Leroy Partida M.D. Measurements Intervals [place] Rate: 76 P: 53 MI: 149 QRS: 2 QRSD: 86 T: 31 QT: 398 QTc: 450 Interpretive Statements SINUS RHYTHM Compared to ECG 12/13/2022 18:46:05 No significant changes Electronically Signed On 12-14-2022 16:48:59 CDT by Leroy Partida M.D. [id number]
[2022-12-14] MEDS: thiamine 100 mg Tablet PO (08:59)
[2022-12-14] MEDS: folic acid 1 mg Tablet PO (09:00)
[2022-12-14] MEDS: amoxicillin-clav 875-125 mg Tablet 1 TAB PO ×2 (09:00→18:38)
[2022-12-14] MEDS: nicotine 21 mg Patch 1 PATCH TRANSDERMA (09:00)
[2022-12-14] MEDS: propranolol 20 mg Tablet PO ×2 (09:00→18:38)
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
[2022-12-14] MEDS: duloxetine 30 MG, duloxetine 60 MG 90 MG PO (12:44)
[2022-12-14 14:00] VITALS: BP 151/105; PULSE 88; RESP 15; TEMP 36.9; O2SAT 98
[2022-12-14] MEDS: nicotine 2 mg Gum BUCCAL (19:22)
[2022-12-14 20:21] VITALS: BP 122/73; PULSE 75; RESP 17; TEMP 36.8; O2SAT 96
[2022-12-15 06:00] VITALS: BP 140/91; PULSE 76; RESP 18; TEMP 36.8; O2SAT 96
[2022-12-15] MEDS: nicotine 2 mg Gum BUCCAL (06:42)
[2022-12-15] MEDS: propranolol 20 mg Tablet PO (09:02)
[2022-12-15] MEDS: amoxicillin-clav 875-125 mg Tablet 1 TAB PO (09:02)
[2022-12-15] MEDS: folic acid 1 mg Tablet PO (09:02)
[2022-12-15] MEDS: duloxetine 30 MG, duloxetine 60 MG 90 MG PO (09:03)
[2022-12-15] MEDS: thiamine 100 mg Tablet PO (09:03)
[2022-12-15] MEDS: nicotine 21 mg Patch 1 PATCH TRANSDERMA (09:06)
--- NOTE | 2022-12-15 09:55 | W.PM.NPUDCS ---
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 6RF propranolol 20 mg tablet 20 mg PO BID Qty: 60 6RF naloxone [Narcan] 4 mg/actuation spray,non-aerosol 4 mg intranasal Q2M PRN (Reason: opioid overdose) Qty: 2 3RF Rx Instructions: spray 1 dose into 1 nostril, alternate nostril w ea dose until help arrive duloxetine [Cymbalta] 30 mg capsule,delayed release(DR/EC) 30 mg PO QAM Qty: 30 6RF Rx Instructions: Take one capsule every morning with 60 mg capsule, total dose 90 mg Tylenol Extra Strength 500 mg tablet 1,000 mg PO Q6H PRN (Reason: Pain) ibuprofen 200 mg Tablet 600 mg PO Q6H PRN (Reason: Pain) Discontinued quetiapine [Seroquel] 300 mg Tablet 300 - 9,000 mg PO .ONE TIME prednisone 20 mg tablet See Rx Instructions .ROUTE .COMPLEX Rx Instructions: ( RX FILLED 12/01/22 7D/S) 60MG X 3 [id number] X 2 [id number] X 2 Days Discharge Orders: Discharge Order (Routine); Ordered 12/15/22 Ordered By: Scott Hayward Referrals: Geovany Kely [Other] - 12/15/22 11:00 am Antoinette Manzanares, PMHNP [Staff Physician] - 12/22/22 8:45 am (Follow up appointment scheduled for 12/22/22 8:45 am check in.) Discharge Diet: Regular Discharge Activity: Resume usual activity Patient Instructions: Duloxetine (By mouth) (Cymbalta, Irenka, Drizalma Sprinkle), Polysubstance Use Disorder (GEN), Opioid Safety (DC), Suicide Prevention (GEN), Opioid Safety Discharge Attestations NPU Time Spent in Discharge Care*: less than 30 min Specific Discharge Activities: Specific discharge activities: educating patient, discussing with case planner/social workers/dc planners, documenting/other paperwork and evaluating patient/reviewing data Coding Level of Care Code Acute Chg FW DC note Diagnoses Suicide attempt by drug overdose T50.902A Multiple lacerations T07.XXXA Lumbar stenosis with neurogenic claudication M48.062 Polysubstance abuse F19.10 Diabetes mellitus type 2 in obese E11.69; E66.9 History of back surgery Z98.890 Opioid use disorder F11.90 Marijuana use, episodic F12.90 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
[2022-12-15 10:28] VITALS: BP 140/91; PULSE 76; RESP 18; TEMP 36.8; O2SAT 96
== END 2022-12-15 12:00 | disposition home or self-care (01) | DRG 917 ==
LOC: ER 15:40 → ICU 16:04 → NP 12-13 13:52
PROVIDERS: Internal Medicine; Admitting Provider Internal Medicine; Emergency Provider Family Medicine; Visit Provider Internal Medicine
DX: T43.592A Poisoning by other antipsychotics and neuroleptics, intentional self-harm, initial encounter (principal); J69.0 Pneumonitis due to inhalation of food and vomit; T76.11XA Adult physical abuse, suspected, initial encounter; I95.9 Hypotension, unspecified; F40.10 Social phobia, unspecified; Z63.0 Problems in relationship with spouse or partner; F10.20 Alcohol dependence, uncomplicated; F60.3 Borderline personality disorder; G89.29 Other chronic pain; M54.2 Cervicalgia; F17.210 Nicotine dependence, cigarettes, uncomplicated; E11.9 Type 2 diabetes mellitus without complications; E66.9 Obesity, unspecified; Z68.30 Body mass index [BMI] 30.0-30.9, adult; F12.10 Cannabis abuse, uncomplicated; F15.10 Other stimulant abuse, uncomplicated; F11.10 Opioid abuse, uncomplicated; S51.812A Laceration without foreign body of left forearm, initial encounter; X78.1XXA Intentional self-harm by knife, initial encounter; F01-F99 Mental, behavioral and neurodevelopmental disorders
CPT/HCPCS: 12006; 31500; 36415; 36416; 36600; 51702; 71045; 80048; 80051; 80053; 80306; 80307; 81001; 82009; 82330; 82607; 82803; 82805; 82962; 83036; 83605; 83690; 83735; 84100; 84145; 84443; 85025; 87040; 87070; 87077; 87086; 87186; 87205; 90471; 90686; 90715; 93005; 93306; 94002; 94003; 94799; 96365; 96366; 96367; 96375; 96376; 97150; 97165; 99291; C9113; J1940; J2250; J2310; J2543; J2704; J3010; J3411; J3480; J7030; J7042; J7050; J7060

== ENCOUNTER → 2022-12-22 10:15 | Outpatient (BNVA) | payer MEDICAID, SELFPAY ==
[2021-08-24 15:39] VITALS: BP 164/96; BMI 26.2
== END ==
PROVIDERS: Visit Provider Nurse Practitioner Psychiatric/Mental Health
DX: Z79.899 Other long term (current) drug therapy (principal)
CPT/HCPCS: 80306

== ENCOUNTER 2022-12-28 15:13 | Outpatient (CLI) | payer MEDICAID, SELFPAY ==
[2021-08-24 15:39] VITALS: BP 164/96; BMI 26.2
--- NOTE | 2022-12-28 15:15 | MR_ITS ---
WS: [id number] MRI LUMBAR SPINE NONCONTRAST TECHNIQUE: Sagittal T1, T2 and STIR imaging. Axial T1 and T2 imaging. CLINICAL INFORMATION: lumbar pain COMPARISON: MRI 2017 FINDINGS: Mild lumbar curve. No acute compression. Disc space narrowing worse at L4-L5 and L5-S1 with endplate degenerative changes. Disc desiccation at these levels has progressed compared to previous. L1-L2: Normal. L2-L3: Mild facet arthropathy. Spinal canal and foramen are patent. L3-L4: Mild annular bulging. Narrowing of the LEFT subarticular recess. Mild facet arthropathy. Mild LEFT foraminal narrowing with a small LEFT foraminal protrusion. This appears slightly progressed com pared to previous with a small annular fissure. L4-L5: Progressed disc space narrowing. Mild annular bulging. Narrowing of the LEFT greater than RIGH T subarticular recess. Moderate facet arthropathy. Mild RIGHT foraminal narrowing. Prior hemilaminect janusz. L5-S1: Progressed disc space narrowing. Mild disc bulging with slight impingement on the LEFT S1 nerv e root. Mild facet arthropathy. Mild to moderate LEFT foraminal narrowing impinges the next LEFT L5 n erve root. This is progressed compared to previous. RIGHT foramen is patent. Tiny RIGHT renal cyst. On the cervical spine trauma director imaging, mild disc bulging at C5-6 with indentatio n of the cervical cord and mild central canal stenosis. Hepatomegaly visualized on the trauma director imaging. Visualized pelvic bony structures: Normal. Paravertebral soft tissues: Normal. IMPRESSION: 1. Progressed disc space narrowing at L4-L5 and L5-S1. 2. Disc bulging L5-S1 impinges the traversing LEFT S1 nerve root in the subarticular recess. 3. Mild to moderate LEFT L5-S1 foraminal narrowing impinges the exiting L5 nerve root. This is progr essed compared to previous. 4. Mild LEFT L3-4 foraminal narrowing with slight contact of the exiting LEFT L3 nerve root with a s mall annular fissure. In addition, slight impingement on the traversing LEFT L4 nerve root at this le maria luz. 5. Mild narrowing of the LEFT greater than RIGHT subarticular recess at L4-5 with prior hemilaminect janusz.
== END 2022-12-28 15:14 | disposition home or self-care (01) ==
PROVIDERS: Visit Provider Orthopaedic Surgery
DX: M48.07 Spinal stenosis, lumbosacral region (principal); M51.37 Other intervertebral disc degeneration, lumbosacral region; Z98.890 Other specified postprocedural states
CPT/HCPCS: 72148

== ENCOUNTER 2023-01-11 08:36 | Outpatient (CLI) | payer MEDICAID, SELFPAY ==
[2021-08-24 15:39] VITALS: BP 164/96; BMI 26.2
[2023-01-11 09:03] LABS: Basophils # 0.1 10^3/uL (0.0-0.1); Basophils % 0.8 %; Eosinophils # 0.2 10^3/uL (0.0-0.8); Eosinophils % 2.5 %; Hematocrit 38.1 % (36-47); Lymphocytes # 2.3 10^3/uL (0.8-4.8); Lymphocytes % 39.3 %; Mean Corpuscular HGB Conc 33.3 g/dL (30-55); Mean Corpuscular Volume 92.9 fl (85-98); Mean Platelet Volume 10.3 fL (7.4-10.4); Monocytes # 0.5 10^3/uL (0.2-0.9); Monocytes % 9.1 %; Neutrophils # 2.85 10^3/uL (1.8-7.7); Neutrophils % 48.1 %; Nucleated Red Blood Cells % 0 %; Platelet Count 215 10^3/cmm (157-399); Red Cell Distribution Width 13.2 % (12.1-15.1); White Blood Count 5.93 10^3/uL (3.29-11.43)
[2023-01-11 09:15] LABS: Urine Appearance Cloudy (CLEAR); Urine Color Yellow (Yellow); pH Urine 5 (5-7)
[2023-01-11 09:16] LABS: Add Urine Microscopic? YES; Bilirubin Urine Neg (Negative); Blood Urine Neg (Negative); Glucose Urine UA 4+ (Normal); Ketones Urine Negative (Negative); Leukocyte Esterase Urine Negative (Negative); Nitrate Urine Negative (Negative); Protein Urine Trace (Negative); Urobilinogen Urine Norm (Negative)
[2023-01-11 09:23] LABS: Alanine Aminotransferase 34 U/L (0-33); Albumin Level 3.5 g/dL (3.5-5.2); Alkaline Phosphatase 97 U/L (35-105); Anion Gap 13.8 (5-19); Aspartate Amino Transferase 39 U/L (0-32); Blood Urea Nitrogen 7 mg/dL (6-20); Calcium 7.9 mg/dL (8.5-10.5); Carbon Dioxide 20 mmol/L (22-29); Chloride 105 mmol/L (98-107); Glomerular Filtration Rate 108.1 mL/min (90-130); Glucose 266 mg/dL (65-115); Osmolality Calculated 287 mOsm/kg (285-295); Potassium 3.8 mmol/L (3.5-5.1); Sodium 135 mmol/L (136-145); Total Bilirubin 0.2 mg/dL (0.15-1.2); Total Protein 6.5 g/dL (6.6-8.7)
[2023-01-11 09:23] LABS: Add Urine Culture? No; Bacteria Urine 2+ /hpf; Mucus Urine 2+ /hpf; RBC Urine 0-4 /hpf (0-2); Squamous Epithelial Cell Urine 80-100 /hpf (0-5)
== END 2023-01-11 08:37 | disposition home or self-care (01) ==
PROVIDERS: Absent Provider Nurse Practitioner Psychiatric/Mental Health; PCP Family Medicine Adult Medicine; Visit Provider Orthopaedic Surgery
DX: M48.062 Spinal stenosis, lumbar region with neurogenic claudication (principal)
CPT/HCPCS: 36415; 80053; 81001; 85025

== ENCOUNTER → 2023-01-12 14:44 | Outpatient (BNVA) | payer MEDICAID, SELFPAY ==
[2021-08-24 15:39] VITALS: BP 164/96; BMI 26.2
== END ==
PROVIDERS: PCP Family Medicine Adult Medicine; Visit Provider Family Medicine
DX: Z01.818 Encounter for other preprocedural examination (principal)
CPT/HCPCS: 81003

== ENCOUNTER 2023-01-23 10:17 | Observation (INO) | payer MEDICAID, SELFPAY ==
[2021-08-24 15:39] VITALS: BP 164/96; BMI 26.2
[2023-01-23] VITALS (24 sets, daily range): BP systolic 114–150; BP diastolic 66–100; PULSE 59–98; RESP 12–20; TEMP 36.3–36.7; O2SAT 90–100; BMI 30.7
--- NOTE | 2023-01-23 | XR_ITS ---
WS: [id number] INTRAOPERATIVE TECHNIQUE: 3 Spot fluoroscopic images for intraoperative purposes. FLUOROSCOPY TIME: 15 seconds CLINICAL INFORMATION: or pic, plif COMPARISON: None. FINDINGS: Pedicle screw fixation L4-S1 with interbody fusion grafts hardware appears in good position. IMPRESSION: Images obtained for intraoperative purposes.
--- NOTE | 2023-01-23 06:09 | W.PM.OPSUD ---
Surgery/Procedure H&P Update DATE OF PROCEDURE: January 23, 2023 DATE H&P PERFORMED: 01/12/23 H&P UPDATE INFORMATION: I have reviewed H&P completed within last 30 days, I have examined patient prior to procedure and No changes to prior documentation PREOP DIAGNOSIS: Lumbar stenosis with neurogenic claudication DDD lumbar PLANNED PROCEDURE: Operation Date: 01/23/23 07:00 Proposed Procedures p L4/5,L5/S1 Posterior Lumbar Interbody Fusion PLIF(Not Applicable) - Willy Babin DO
[2023-01-23 06:30] LABS: OR HCG Qualitative Urine Negative (Negative)
[2023-01-23] MEDS: sodium chloride 0.9% 1,000 ML 30 ML IV (06:38)
[2023-01-23] MEDS: ceFAZolin 2,000 MG in sodium chloride 0.9% (plus) 50 ML 100 MG IV ×3 (07:06→22:20)
--- NOTE | 2023-01-23 07:45 | ANES.PREANE2 ---
Pre-Anesthetic Assessment Height/Weight: Height 1.68 m Weight 86.183 kg Temp Pulse Resp BP Pulse Ox O2 Del Method 97.3 F L 79 18 137/100 97 Room Air 01/23/23 06:11 01/23/23 06:11 01/23/23 06:11 01/23/23 06:11 01/23/23 06:11 01/23/23 06:15 Preop Diagnosis: Lumbar stenosis with neurogenic claudication DDD lumbar Operation Date: 01/23/23 07:00 Proposed Procedures p L4/5,L5/S1 Posterior Lumbar Interbody Fusion PLIF(Not Applicable) - Willy Babin, DO Was Beta Andressa taken within 24 hours: Yes Was Clonidine taken within 24 hours: N/A Last intake: Intake Last Liquid Date 01/22/23 Last Liquid Time 23:00 Last Solid Date 01/23/23 Last Solid Time 19:00 Social Alcohol and Tobacco Exam alert, oriented x 3 and regular rate & rhythm Airway Submandibular: within normal limits Cervical ROM: within normal limits Mallampati: Class II Dentition: full Pulmonary Chronic Obstructive Pulmonary Disease Hepatic Hepatitis (C) Metabolic Morbid Obesity [facility] Lower Back Pain and Osteoarthritis/DJD Neuropsych Anxiety and Depression Chronic pain Anesthetic Plan ASA status: 3 Anesthesia: General Other: Tx OK, discussed a.line Medications/Allergies Home Medications Medication Instructions Recorded Confirmed Last Taken Type acetaminophen 500 mg tablet 1,000 mg PO Q6H PRN Pain 08/04/21 01/20/23 01/13/23 History (Tylenol Extra Strength) duloxetine 60 mg capsule,delayed 60 mg PO QAM #30 caps 08/24/22 01/20/23 01/23/23 Rx release hydroxyzine HCl 50 mg tablet 50 mg PO TID PRN anxiety #90 tabs 08/24/22 01/20/23 01/23/23 Rx naloxone 4 mg/actuation nasal 4 mg intranasal Q2M PRN opioid 08/24/22 01/20/23 Unknown Rx spray (Narcan) overdose #2 ea olanzapine 10 mg tablet 10 mg PO BEDTIME #30 tabs 08/24/22 01/20/23 01/18/23 Rx propranolol 20 mg tablet 20 mg PO BID #60 tabs 08/24/22 01/23/23 01/23/23 Rx duloxetine 30 mg capsule,delayed 30 mg PO QAM #30 caps 11/24/22 01/20/23 01/18/23 Rx release (Cymbalta) thiamine mononitrate (vit B1) 100 100 mg PO DAILY 30 days #30 tabs 12/15/22 01/20/23 01/18/23 Rx mg tablet (Vitamin B-1 (mononitrate)) naproxen 500 mg tablet 500 mg PO BID PRN pain #60 tabs 01/03/23 01/20/23 01/16/23 Rx tramadol 50 mg tablet 50 mg PO Q6H PRN pain #30 tabs 01/09/23 01/20/23 Unknown Rx nitrofurantoin 100 mg PO Q12H 5 days #10 caps 01/13/23 01/20/23 01/20/23 Rx monohydrate/macrocrystals 100 mg capsule (Macrobid) Allergies Allergy/AdvReac Type Severity Reaction Status Date / Time Sulfa (Sulfonamide AdvReac Intermediate Rash Verified 01/12/23 14:43 Antibiotics) Current Medications Generic Name Dose Route Start Last Admin Trade Name Freq PRN Reason Stop Dose Admin Sodium Chloride 1,000 mls @ 30 mls/hr 01/23/23 06:00 01/23/23 06:38 Sodium Chloride 0.9% IV 01/24/23 05:59 30 mls/hr .Q24H VITALY Administration PFSH Anesthesia Medical History Alcohol dependence Borderline personality disorder Chronic neck and back pain Cigarette nicotine dependence Compression fracture of L1 lumbar vertebra Diabetes mellitus type 2 in obese Hepatitis C Per patient Hx of migraines Knee pain, right Marijuana use, episodic Opioid use disorder Other stimulant abuse with stimulant-induced mood disorder last use of methamphetamines 01/11-11/26 Polysubstance abuse smoker, alcohol, Opioid, Cannabis, methamphetamines and other stimulant Psychiatric care Sexual masochism Surgical History H/O knee surgery History of back surgery Family History Other Family history non-contributory Social History Smoking and tobacco/nicotine status: current every day tobacco/nicotine user cigarettes Packs smoked per day: 0.5 Years cigarettes smoked: 25 Quit status (tobacco/nicotine): has tried quititng Number of times tried to quit tobacco: 2 Second hand smoke exposure: Yes (Sometimes.) Alcohol intake: former Substance/Drug Use: former Date of last use: 2021 Data Anesthesia Cardiac Studies: Echocardiogram 12/12/22
[2023-01-23] MEDS: vancomycin 1,000 MG SDV 1000 MG XX (07:46)
[2023-01-23] MEDS: lidocaine-epi 1% 20 mL INJ INJECTION (07:47)
[2023-01-23] MEDS: heparin, porcine 1,000 unit/mL INJ 10 mL 10000 UNIT IRRIGATION (08:14)
--- NOTE | 2023-01-23 10:17 | P.OP_ITS ---
Operative Report Date of procedure: January 23, 2023 Pre-op diagnosis: Lumbar stenosis with neurogenic claudication Post-op diagnosis: same Procedure done: 1. L4/5 Interbody fusion with posterolateral fusion 2. L5/S1 Interbody fusion with posterolateral fusion 3. Instrumentation L4-S1 posterior instrumentation 4. Cage at L4/5 5. Cage L5/S1 6. L4/5 Laminectomy with facetectomy 7. L5/S1 laminectomy with facetectomy 8. use of autograft from same incision 9. allograft 10. Bone marrow aspirate from right iliac crest 11. Use of computer navigation/ stereotactic for spine Surgeon: Willy Babin DO Html Developer: Silvestre Arroyo Html Developer: The surgical elastic knitter, Silvestre Arroyo, ELIS was needed for his expertise under the microscope. He was important and necessary throughout the procedure to complete in a safe and timely manner. He assisted with patient positioning prepping and draping tissue retraction suctioning of the operative field protection of the dural sac and tissue closure Estimated blood loss (mL): 450 Procedure: 1. L4/5 Interbody fusion with posterolateral fusion 2. L5/S1 Interbody fusion with posterolateral fusion 3. Instrumentation L4-S1 posterior instrumentation 4. Cage at L4/5 5. Cage L5/S1 6. L4/5 Laminectomy with facetectomy 7. L5/S1 laminectomy with facetectomy 8. use of autograft from same incision 9. allograft 10. Bone marrow aspirate from right iliac crest 11. Use of computer navigation/ stereotactic for spine Patient is brought to the operative suite. After undergoing anesthesia, the patient had neuro monitoring attached. Patient was then placed in the prone position on the [place] table. All areas of impingement were well-padded. Patient was then prepped and draped in the normal sterile fashion. Skin incision was then made over the L4-S1 disk space. Subperiosteal dissection was made out to the transverse processes of L 4 bilaterally, L5 bilaterally and S1 bilaterally. The [employer] bone marrow aspirate kit was used to aspirate bone marrow aspirate. This was done by using the sharp probe to open up the bone and the right iliac crest. Aspiration was performed and then the blunt probe was then used to dissect down to through the bone tunnel. An aspirating well drawn back a millimeter approximately 20 cc of bone marrow aspirate was used. Admixed with the allograft and autograft bone that will be used. Next the fiducial was placed for use and computer navigation. This was done by placing 2 pins in the right iliac crest which were later removed. The fiducial was attached to these pins. The C-arm was brought in and spun around the patien t. Information from the C-arm was then loaded into the computer for later use with the computer navigation for the placement of pedicle screws. The technique for placing the pedicle screws was to use a drill followed by the gearshift probe linked to computer navigation. Followed by the ball probe to feel the superior inferior medial lateral blanc of the pedicles. Then placement of the screws with computer navigation. Was done at each pedicle. Screws were placed at L4 bilaterally and L5 bilaterally and S1 bilaterally. . Next attention was brought to performing the laminectomy ofL4. This was done using the high-speed bur Kerrisons and curettes. Once the lamina was removed and then attention was brought to performing a partial facetectomy on the contralateral side. This was done again using the high-speed bur curettes and Kerrisons. The ligamentum flavum was taken down bilaterally from L4 to L5. Attention was then brought to the facet on the ipsilateral side. The facet was taken down. The L5 nerve was decompressed as it passed around the L5 pedicle. The laminectomy was done for purposes of decompressing the nerve as well as placement of the cage. The L4 nerve was identified as it traversed through the L4/5 foramen. The thecal sac was identified and retracted. The L4/5 disc base was identified. Using a knife the disc base was opened. And then sequential christelle were placed. The first shaver was a 6 and the last shaver was a 7. Using a pituitary and down going curette the endplates were scraped and disc material was removed from the space. Once adequate decompression of the disc base was felt to be had. Osteoamp sponge was packed into the anterior aspect of the disc base. Then a size 8 cage from [employer] was placed after packing osteoamp into the cage. While placing the cage the thecal sac and L5 nerve was protected. C arm was used to ensure that the cages placed in the appropriate position. Next attention was brought to performing the laminectomy ofL5. This was done using the high-speed bur Kerrisons and curettes. Once the lamina was removed and then attention was brought to performing a partial facetectomy on the contralateral side. This was done again using the high-speed bur curettes and Kerrisons. The ligamentum flavum was taken down bilaterally from L5 to S1. Attention was then brought to the facet on the ipsilateral side. The facet was taken down. The S1 nerve was decompressed as it passed around the S1 pedicle. The laminectomy was done for purposes of decompressing the nerve as well as placement of the cage. The L5 nerve was identified as it traversed through the L5/S1 foramen. The thecal sac was identified and retracted. The L5/S1 disc base was identified. Using a knife the disc base was opened. And then s equential christelle were placed. The first shaver was a 6 and the last shaver was a 7. Using a pituitary and down going curette the endplates were scraped and disc material was removed from the space. Once adequate decompression of the disc base was felt to be had. Osteoamp sponge was packed into the anterior aspect of the disc base. Then a size 8 cage from [employer] was placed after packing osteoamp into the cage. While placing the cage the thecal sac and S1 nerve was protected. C arm was used to ensure that the cages placed in the appropriate position. Attention was then brought to attaching the rods to the screws placed in the L4 bilaterally, L5 bilaterally and S1 bilaterally. Caps were torqued into position. Locking the construct in place. Wound was copiously irrigated and then attention was brought to decorticating the facets and transverse processes laterally. Bone that was taken down from the lamina was used along with osteoamp fibers and sponges were packed into the lateral gutters along the facet joints. This was done bilaterally. Wound was then closed in a layered fashion starting with the thoracolumbar fascia. 0-vicryl was used the sub cutaneous tissue was closed with 2-0 vicryl and skin with 4-0 monocryl. Glue was then used to seal the skin and a steril dressing was applied. Patient was then placed in the supine position. The endotracheal tube was removed and patient was transferred to the PACU in stable condition.
[2023-01-23] MEDS: fentaNYL 50 mcg/mL INJ 2mL IVP (10:35)
[2023-01-23] MEDS: acetaminophen 1,000 MG/100 ML PIGGYBACK 400 MG IV (11:16)
[2023-01-23] MEDS: lactated ringers 1,000 ML 90 ML IV ×2 (12:00→22:21)
[2023-01-23] MEDS: morphine 4 mg/mL SDV 1 mL 2 MG IVP ×5 (12:00→20:01)
--- NOTE | 2023-01-23 14:18 | ANE.PACU2 ---
Inpatient post-anesthesia follow up: Airway intact: Yes Vital signs: Temperature 98.0 F Pulse Rate 82 Respiratory Rate 17 Blood Pressure 143/79 Pulse Oximetry 99 Oxygen Delivery Me thod Nasal Cannula Oxygen Flow Rate 4 Fraction of Inspir ed Oxygen Hydration adequate: Yes Nausea and vomiting: No Pain level: 4 Mental status: Baseline
[2023-01-23] MEDS: propranolol 20 mg Tablet PO (18:48)
[2023-01-23] MEDS: docusate sodium 100 mg Capsule PO (18:48)
[2023-01-23] MEDS: HYDROcodone-acetaminophen 5-325 mg Tablet PO (19:29)
[2023-01-23] MEDS: OLANZapine 10 mg TABLET PO (20:57)
[2023-01-23] MEDS: nicotine 21 mg Patch 1 PATCH TRANSDERMA (20:57)
[2023-01-23] MEDS: nitrofurantoin SR (BID) 100 mg Capsule PO (22:20)
[2023-01-24] VITALS (10 sets, daily range): BP systolic 125–151; BP diastolic 76–90; PULSE 78–85; RESP 16–22; TEMP 36.6–36.8; O2SAT 90–93
[2023-01-24] MEDS: HYDROcodone-acetaminophen 5-325 mg Tablet PO ×4 (00:28→14:19)
[2023-01-24] MEDS: morphine 4 mg/mL SDV 1 mL 2 MG IVP ×4 (02:01→21:01)
[2023-01-24] MEDS: ondansetron 2 mg/ML SDV 2 mL 4 MG IVP ×2 (02:02→21:01)
[2023-01-24] MEDS: ceFAZolin 2,000 MG in sodium chloride 0.9% (plus) 50 ML 100 MG IV (06:06)
[2023-01-24] MEDS: duloxetine 30 mg Capsule PO (06:07)
[2023-01-24] MEDS: duloxetine 60 mg Capsule PO (06:07)
--- NOTE | 2023-01-24 07:33 | PM.PN ---
Subjective Subjective: POD 1 Patient resting comfortably. Denies shortness of breath, chest pain, headaches. Vitals/I&O/Wt Last Vital Signs Temp 98.1 F 01/24/23 03:25 Pulse 83 01/24/23 03:25 Resp 17 01/24/23 03:25 BP 145/76 01/24/23 03:25 Pulse Ox 93 01/24/23 03:25 O2 Del Method Room Air 01/24/23 03:25 O2 Flow Rate 3 01/23/23 19:57 01/23/23 01/24/23 01/24/23 22:59 06:59 14:59 Intake Total 1271.5 / 2721.5 650 / 3371.5 Output Total 880 / 1430 1700 / 3130 Balance 391.5 / 1291.5 -1050 / 241.5 Weight last 48 hrs Weight 190 lb Weight 190 lb Physical Exam Narrative: Patient presents alert and oriented x3 with a good general appearance normal mood and affect. Normal coordination normal stability. Mild tenderness around the incisional site with the incision appears clean and dry with Hemovac drain intact with 440 mL output. No signs of erythema or drainage. No signs of infection. Patient denies any fevers or chills. 5/5 motor strength both lower extremities with negative straight leg raise bilaterally. Calves are supple no medial thigh tenderness. Pulses are 2+ at the dorsalis pedis and posterior tibial region. Good capillary refill throughout normal sensation light touch both lower extremities. Urinary Catheter Management: Rodriguez: Cath Placed During This Visit: yes Reason for Continuing Indwelling Catheter: Perioperative Use in Selected Surgeries Urinary Catheter Date of Insertion: 01/23/23 Urinary Catheter Time of Insertion: 07:15 A&P Assessment and plan (1) Status post lumbar spinal fusion: Physical therapy to mobilize. Continue Hemovac drain today to reduce output will discontinue tomorrow. Reinforce or change dressing as needed with Silverlon. Discontinue Rodriguez catheter. Patient is high risk of bleeding will continue mechanical SCDs for DVT prophylaxis. Continue incentive spirometer for pulmonary toilet. Hopeful discharge home tomorrow. Attestations Medical Necessity Statement*: Hopeful discharge home tomorrow. Coding Level of Care Code Acute Code for Chg Fwd Diagnoses Status post lumbar spinal fusion Z98.1
[2023-01-24] MEDS: nicotine 21 mg Patch 1 PATCH TRANSDERMA (08:49)
[2023-01-24] MEDS: docusate sodium 100 mg Capsule PO ×2 (08:49→17:43)
[2023-01-24] MEDS: thiamine 100 mg Tablet PO (08:50)
[2023-01-24] MEDS: propranolol 20 mg Tablet PO ×2 (08:50→17:43)
--- NOTE | 2023-01-24 09:50 | PC.CHAP ---
Pastoral Care Encounter/Spiritual Assessment Type of Contact [] Declined flagman visit [] Patient/Family/Request visit [] Outpatient visit [] Follow-up visit [] Physician referral [] Code/Alert [] Routine visit [] Staff referral [] Actively dying [] Patient sleeping [] Family support [] [x] Out of room [] Palliative care [] [] Receiving care in room [] Pre-surgical visit [] Trauma [] Long length of stay [] ICU visit [] Other: Relational/Emotional Strength [] Patient feels connected with others/family/visitors/staff [] Distress [] Loneliness/isolation [] Abandonment Spirituality of Patient [] Person of Sonia [] Attends Pentecostalism of their Sonia [] Believes in Prayer [] Reads Bible or Pentecostalism materials [] There are Spiritual issues to be addressed Shipping Lead Person Interventions [] Prayer [] Active listening [] Non-anxious presence [] Spiritual/emotional support [] Crisis/trauma care [] Spiritual counseling [] Bereavement support [] Provided bereavement packet [] Provided Bible/devotional materials [] Provided toy/stuffed animal, coloring book to patient or family member [] Provided Communion [] Anointing/Plummer [] Salvation [] Completed spiritual assessment [] Other: Impact on Illness or Injury [] Angry [] Fearful [] Anxious [] Often cries [] Exhaustion [] Unable to work [] Unable to attend methodist [] Unable to walk/stand [] Unable to read [] Unable to drive [] Unable to eat/drink [] Unable to sleep [] Unable to be with family [] Patient intubated [] Other: Summary Time spent with patient
[2023-01-24] MEDS: nitrofurantoin SR (BID) 100 mg Capsule PO ×2 (10:03→21:35)
[2023-01-24] MEDS: lactated ringers 1,000 ML 90 ML IV ×2 (10:03→20:55)
[2023-01-24] MEDS: OLANZapine 10 mg TABLET PO (20:55)
[2023-01-25] MEDS: HYDROcodone-acetaminophen 5-325 mg Tablet PO ×2 (01:14→05:43)
--- NOTE | 2023-01-25 01:20 | PC.NURSE ---
hemovac disconected when pt turned over, 60 ml of pale red drainage drained.
[2023-01-25 04:00] VITALS: BP 155/90; PULSE 89; RESP 18; TEMP 36.8; O2SAT 93
[2023-01-25] MEDS: duloxetine 30 mg Capsule PO (05:44)
[2023-01-25] MEDS: duloxetine 60 mg Capsule PO (05:44)
--- NOTE | 2023-01-25 06:36 | P.PN_ITS ---
Subjective Subjective: POD 2 Patient reports mild back pain legs have improved. Denies any shortness of breath, chest pain, headaches. Vitals/I&O/Wt Last Vital Signs Temp 98.2 F 01/25/23 04:00 Pulse 89 01/25/23 04:00 Resp 18 01/25/23 04:00 BP 155/90 01/25/23 04:00 Pulse Ox 93 01/25/23 04:00 O2 Del Method Room Air 01/25/23 04:00 O2 Flow Rate 3 01/23/23 19:57 01/24/23 01/24/23 01/25/23 14:59 22:59 06:59 Intake Total 1600 / 1600 1338 / 2938 Output Total 730 / 730 345 / 1075 60 / 1135 Balance 870 / 870 993 / 1863 -60 / 1803 Weight last 48 hrs Weight 214 lb 4 oz Weight 190 lb Physical Exam Narrative: Patient presents alert and oriented x3 with a good general appearance normal mood and affect. Normal coordination normal stability. Mild tenderness around the incisional site with the incision appear to be healing nicely. No signs of erythema or drainage. No signs of infection. Patient denies any fevers or chills. 5/5 motor strength both lower extremities with negative straight leg raise bilaterally. Calves are supple no medial thigh tenderness. Pulses are 2+ at the dorsalis pedis and posterior tibial region. Good capillary refill thro ughout normal sensation light touch both lower extremities. Urinary Catheter Management: Rodriguez: Cath Placed During This Visit: yes, but has since been removed by the nurse Reason for Continuing Indwelling Catheter: Decision to DC Catheter Urinary Catheter Date of Insertion: 01/23/23 Urinary Catheter Time of Insertion: 07:15 Date Urinary Catheter Removed: 01/24/23 Time Urinary Catheter Discontinued: 10:20 A&P Assessment and plan (1) Status post lumbar spinal fusion: Discontinue Hemovac drain. Continue incentive spirometer at home. Continue to mobilize with a walker no bending lifting or twisting. We will see her back in the office in 1 week's time for a wound check. Discharge home. Attestations Medical Necessity Statement*: Discharge home today Coding Level of Care Code Acute Code for Chg Fwd Diagnoses Status post lumbar spinal fusion Z98.1
[2023-01-25 07:36] VITALS: BP 132/82; PULSE 86; RESP 17; TEMP 36.8; O2SAT 93
[2023-01-25] MEDS: thiamine 100 mg Tablet PO (08:31)
[2023-01-25] MEDS: docusate sodium 100 mg Capsule PO (08:31)
[2023-01-25] MEDS: propranolol 20 mg Tablet PO (08:31)
[2023-01-25 09:19] VITALS: BP 132/82; PULSE 86; RESP 17; TEMP 36.8; O2SAT 93
--- NOTE | 2023-01-30 12:07 | PM.DCS ---
Discharge Providers Date of Admission: 01/23/23 10:17 Date of Discharge: January 25, 2023 Attending Provider at Admission: Willy Babin DO Attending Provider at Discharge: Willy Babin DO Primary Care Provider: Alex Hodge MD Diagnoses at Discharge Discharge Diagnosis (1) Status post lumbar spinal fusion: Status: Acute Reason for Visit Reason for Visit: M48.062 Physical Exam Urinary Catheter Management: Rodriguez: Cath Placed During This Visit: yes, but has since been removed by the nurse Reason for Continuing Indwelling Catheter: Decision to DC Catheter Urinary Catheter Date of Insertion: 01/23/23 Urinary Catheter Time of Insertion: 07:15 Date Urinary Catheter Removed: 01/24/23 Time Urinary Catheter Discontinued: 10:20 Discharge Data Studies Completed and Pending Completed Studies During Hospitalization Category Date Time Status XR lumbar spine 2-3V* [id number] Routine Exams 01/23/23 Completed Laboratory Results Urine HCG, Qual Negative (Negative) 01/23/23 05:58 Blood Type A Positive 01/23/23 06:29 Rho(D) Type Rh positive 01/23/23 06:29 Antibody Screen Negative 01/23/23 06:29 Vitals Last Vital Signs Temp 98.2 F 01/25/23 09:19 Pulse 86 01/25/23 09:19 Resp 17 01/25/23 09:19 BP 132/82 01/25/23 09:19 Pulse Ox 93 01/25/23 09:19 O2 Del Method Room Air 01/25/23 07:36 O2 Flow Rate 3 01/23/23 19:57 Discharge Plan Discharge Patient Disposition: Home Condition: Stable Prescriptions: New hydrocodone-acetaminophen 5-325 mg Tablet 1 - 2 tab PO Q4H PRN (Reason: Post Operative Pain) Qty: 40 0RF Continued olanzapine 10 mg tablet 10 mg PO BEDTIME Qty: 30 6RF hydroxyzine HCl 50 mg tablet 50 mg PO TID PRN (Reason: anxiety) Qty: 90 3RF duloxetine 60 mg capsule,delayed release(DR/EC) 60 mg PO QAM Qty: 30 6RF propranolol 20 mg tablet 20 mg PO BID Qty: 60 6RF naloxone [Narcan] 4 mg/actuation spray,non-aerosol 4 mg intranasal Q2M PRN (Reason: opioid overdose) Qty: 2 3RF Rx Instructions: spray 1 dose into 1 nostril, alternate nostril w ea dose until help arrive duloxetine [Cymbalta] 30 mg capsule,delayed release(DR/EC) 30 mg PO QAM Qty: 30 6RF Rx Instructions: Take one capsule every morning with 60 mg capsule, total dose 90 mg tramadol 50 mg tablet 50 mg PO Q6H PRN (Reason: pain) Qty: 30 0RF nitrofurantoin monohyd/m-cryst [Macrobid] 100 mg capsule 100 mg PO Q12H 5 Days Qty: 10 0RF Rx Instructions: must administer with a meal/food Tylenol Extra Strength 500 mg tablet 1,000 mg PO Q6H PRN (Reason: Pain) thiamine mononitrate (vit B1) [Vitamin B-1 (mononitrate)] 100 mg Tablet 100 mg PO DAILY 30 Days Qty: 30 1RF Held naproxen 500 mg tablet 500 mg PO BID PRN (Reason: pain) Qty: 60 5RF Hold Instructions: Resume on 03/03/23. Discharge Orders: Discharge Order (Routine); Ordered 01/25/23 Ordered By: Silvestre Arroyo Referrals: Willy Babin DO [Physician] - 02/07/23 3:15 pm Alex Hodge MD [Primary Care Provider] - (We have notified your physician's clinic of the need for a follow-up appointment to be scheduled. If you have not heard from them within the next 2 business days, please call them directly. ) Discharge Diet: Advance as tolerated Discharge Activity: Limit activity as instructed Patient Instructions: Hydrocodone/Acetaminophen (By mouth), Lumbar Spinal Fusion (GEN), Opioid Safety Activity Restrictions/Additional Instructions: Thank you for choosing [facility] for your care! The following is a list of instructions, from your provider, to follow upon your discharge to ensure you have the optimal recovery from your recent injury or surgery. Follow-up care is a osei part of your treatment and safety. Be sure to make and go to all appointments and call your doctor if you are having problems. If you do not already have a follow-up appointment made, call Dr. Babin's] office in the next 1-3 days to make follow up appointment for [1-2] weeks at [phone]. It is also a good idea to know your test results and keep a list of the medicines you take. Medications will be prescribed for you at your provider's discretion. These medications are to be used as instructed; if they are taken more often that prescribed they will not be refilled early and in most cases will not be refilled at all. > When a refill is needed, you should contact renee hughes 2-3 business days before your prescription runs out. Medications will NOT be refilled by distribution associate providers after hours! > Many pain medications contain Tylenol (Acetaminophen). Do not consume more than 4,000 mg of Tylenol per day in total with any combination of medications. > Pain medications can cause constipation. Please use an over the counter stool softener as directed, while taking pain medications. Consult your local pharmacist with questions or recommendations on stool softeners. If constipation persists, contact our office or your primary care provider. > While under our care, you are not to receive pain medications or other controlled substances from any other provider unless our office is notified and approves. Any attempts to do so will result in refusal to prescribe any further pain medications and possible dismissal from our practice. ? Walking is essential for the healing process after surgery. We would like you to slowly advance your walking. This should be done on relatively flat clear ground (inside or out) or can be done on a treadmill. Remember this goal does not have to happen all at once, slowly increase your distance and duration. This can be broken into more more than one walk per day as tolerated. Patients who walk as directed after surgery rarely require Physical Therapy. In the unlikely event this issue arises your provider will direct hospital staff to make the appropriate arrangements. ? No lifting over 5 pounds {a gallon of milk) or bending/twisting until further notice. Each of these activities places an unnecessary amount of stress onto the body and can impede the delicate healing process. > Instead of bending at the waist, keep your back straight and bend at the knees. > Instead of twisting your torso, keep your back straight and turn your entire body with your feet. ? You may sleep in any position which makes you comfortable. Many patients find comfort sleeping in a reclining chair. It is not abnormal to have difficulty sleeping for the first several weeks following your surgery. We recommend trying Benadry! or Tylenol PM as directed to help with your sleeping difficulties. Both medications are over the counter and available without prescription. ? NO SMOKING!!! Smoking dramatically increases the probability of developing postoperative wound infections. ? Common complaints after lumbar and/or thoracic spine surgery include, but are not limited to: numbness and/or tingling in the legs, pain around the incision and surrounding tissues, muscle spasms, or stiffness of the middle to low back. Contact our office if these symptoms persist or if an acute change occurs. ? No driving for the first 3-5days, and not while taking narcotics until seen at your follow-up appointment and cleared. There are no restrictions for riding on short trips, however if you take a longer trip, arrangements should be made to make regular stops to get out of the vehicle and stretch . ? Swelling is an unfortunate event that will take place with any surgery and is the primary source of your postoperative discomfort. While walking and regular approved activities helps control inflammation, there are additional steps you can take to minimize swelling. > Place ice over the surgical site and surrounding tissue for twenty minutes, followed by applying a low/medium heat (heating pad) for an additional twenty minutes every 1-2 hours as needed for painrelief. > You may use of over the counter anti-inflammatory medications (Ibuprofen, Motrin, Aleve, Advil, etc) as directed on the package label. These types of medicines will significantly reduce the amount of discomfort you experience after surgery from swelling. It should be noted that if you have and allergy to any of these medications, or a history of ulcers or kidney disease you should consult you primary care provider prior to starting these medications. Discharge Attestations Time Spent in Discharge Care*: less than 30 min Quality Metrics Clinical Quality Measures [ No reported AMI, CVA or VTE this stay] Coding Level of Care Code Acute Code for Chg Fwd Diagnoses Status post lumbar spinal fusion Z98.1
== END 2023-01-25 09:21 | disposition home or self-care (01) ==
LOC: MEDSURG 10:20
PROVIDERS: Physician Assistant; Admitting Provider Orthopaedic Surgery; PCP Family Medicine Adult Medicine; Visit Provider Orthopaedic Surgery
PROC: (CPT 22612; principal; 2023-01-23 07:00)
DX: M48.062 Spinal stenosis, lumbar region with neurogenic claudication (principal); J44.9 Chronic obstructive pulmonary disease, unspecified; Z86.19 Personal history of other infectious and parasitic diseases; F17.210 Nicotine dependence, cigarettes, uncomplicated; E66.01 Morbid (severe) obesity due to excess calories; Z68.34 Body mass index [BMI] 34.0-34.9, adult
CPT/HCPCS: 20930; 20936; 20939; 22633; 22634; 22842; 22853; 61783; 63052; 63053; 36415; 51702; 72100; 76000; 81025; 84703; 86850; 86900; 97110; 97116; 97161; 97530; C1713; C9359; G0378; J0131; J0330; J0690; J1100; J1170; J1644; J2250; J2270; J2405; J2704; J2710; J3010; J3370; J3490; J7030; J7120

== ENCOUNTER → 2023-02-07 15:16 | Outpatient (BNVA) | payer MEDICAID, SELFPAY ==
[2021-08-24 15:39] VITALS: BP 164/96; BMI 26.2
== END ==
PROVIDERS: PCP Family Medicine Adult Medicine; Visit Provider Orthopaedic Surgery
DX: Z98.1 Arthrodesis status (principal); Z47.89 Encounter for other orthopedic aftercare
CPT/HCPCS: 72100

== ENCOUNTER 2023-03-21 19:02 | Inpatient (IN) | payer MEDICAID, SELFPAY ==
[2021-08-24 15:39] VITALS: BP 164/96; BMI 26.2
[2023-03-21 19:03] VITALS: BP 179/116; PULSE 75; RESP 18; TEMP 36.7; O2SAT 95; BMI 30.7
--- NOTE | 2023-03-21 19:07 | ECG_ITS ---
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 Measurements Intervals [place] Rate: 65 P: 42 VT: 146 QRS: -4 QRSD: 89 T: 30 QT: 417 QTc: 435 Interpretive Statements SINUS RHYTHM MINIMAL VOLTAGE CRITERIA FOR LVH, CONSIDER NORMAL VARIANT [MEETS CRITERIA IN ONE OF: R(aVL), S(V1), R(V5), R(V5/V6)+S(V1)] NONSPECIFIC T-WAVE ABNORMALITY Compared to ECG 12/14/2022 07:50:01 T-wave abnormality now present Electronically Signed On 03-21-2023 19:44:18 CLOTH PRINTER by Shirley Gonzalez M.D. [id number]
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
--- NOTE | 2023-03-21 19:42 | PC.NURSE ---
PATIENT DRESSED OUT OF STREET CLOTHING AND PLACED IN PAPER SCRUBS. ALL BELONGINGS REMOVED. PT WAS UNABLE TO GET MIDDLE RING FINGER OFF. PT'S BELONGINGS LABELED AND SET IN SAFE AREA. PT HAS PSA AT BEDSIDE.
[2023-03-21 19:45] LABS: Basophils # 0.1 10^3/uL (0.0-0.1); Basophils % 1.1 %; Eosinophils # 0.2 10^3/uL (0.0-0.8); Eosinophils % 3.9 %; Hematocrit 37.7 % (36-47); Lymphocytes # 2.3 10^3/uL (0.8-4.8); Lymphocytes % 37.4 %; Mean Corpuscular HGB Conc 31.8 g/dL (30-55); Mean Corpuscular Hemoglobin 27.5 pg (27-33); Mean Corpuscular Volume 86.5 fl (85-98); Mean Platelet Volume 10.7 fL (7.4-10.4); Monocytes # 0.5 10^3/uL (0.2-0.9); Neutrophils # 3.04 10^3/uL (1.8-7.7); Neutrophils % 49.4 %; Nucleated Red Blood Cells % 0 %; Platelet Count 347 10^3/cmm (157-399); Red Blood Count 4.36 10^6/uL (3.85-5.65); Red Cell Distribution Width 14.7 % (12.1-15.1); White Blood Count 6.15 10^3/uL (3.29-11.43)
--- NOTE | 2023-03-21 20:00 | PC.NURSE ---
SPOKE WITH GUSTAVO ALVARADO AT [facility] REGARDING INGESTION OF MEDICATIONS IN ATTEMPT TO OVERDOSE. PT ADMITTED TO TAKING THE FOLLOWING MEDICATIONS, THE DOSAGES FOUND FROM BOTTLES IN PATIENT'S PERSONAL BAG: -6 5-235MG HYDROCODONE -6 10MG ZYPREXA -6 50MG HYDROXYZINE -6 500MG NAPROSYN CHRISTIANO RN ON EDUCATED THIS NURSE TO: -POSSIBLY UTILIZE NARCAN IF PT BECOMES LETHARGIC AND UNABLE TO AROUSE -GET ACETAMINOPHEN LEVEL WATCH FOR S/S: -TACHYCARDIA -HALLUCINATIONS -AGITATION DR PEACE NOTIFIED THIS NURSE SPOKE WITH [facility].
--- NOTE | 2023-03-21 20:03 | PC.NURSE ---
Pt served with copy of 96 Hour Hold by this RN and security. Pt A&O x4, pleasant and states she has no questions because shes been a psych admit before.
[2023-03-21 20:13] VITALS: BP 121/91; PULSE 60; RESP 11; O2SAT 91
[2023-03-21 20:18] LABS: Acetaminophen 18.4 ug/mL (10-30); Alanine Aminotransferase 30 U/L (0-33); Albumin Level 3.8 g/dL (3.5-5.2); Alkaline Phosphatase 134 U/L (35-105); Anion Gap 14.2 (5-19); Aspartate Amino Transferase 38 U/L (0-32); Blood Urea Nitrogen 7 mg/dL (6-20); Carbon Dioxide 26 mmol/L (22-29); Chloride 98 mmol/L (98-107); Creatinine Clr Calc Pharmacy 157.1332; Globulin 3.6 g/dL (1.3-4.6); Glomerular Filtration Rate 133.4 mL/min (90-130); Glucose 256 mg/dL (65-115); Osmolality Calculated 285 mOsm/kg (285-295); Potassium 4.2 mmol/L (3.5-5.1); Sodium 134 mmol/L (136-145); Total Bilirubin 0.3 mg/dL (0.15-1.2); Total Protein 7.4 g/dL (6.6-8.7)
[2023-03-21 20:22] LABS: Alcohol Level < 10 mg/dL (0-10); Salicylate < 0.3 mg/dL (3-10)
[2023-03-21 20:50] LABS: Amphetamines Screen Urine Positive (Negative); Barbiturates Screen Urine Negative (Negative); Benzodiazepines Screen Urine Positive (Negative); Cocaine Screen Urine Negative (Negative); Opiate Screen Urine Positive (Negative); PCP Screen Urine Negative (Negative); THC Screen Urine Positive (Negative)
[2023-03-21 20:55] VITALS: BP 122/89; PULSE 67; RESP 23; O2SAT 93
[2023-03-21 21:11] LABS: Add Urine Culture? No; Add Urine Microscopic? YES; Bacteria Urine 2+ /hpf; Bilirubin Urine Neg (Negative); Blood Urine Neg (Negative); Glucose Urine UA 2+ (Normal); Ketones Urine Negative (Negative); Leukocyte Esterase Urine Negative (Negative); Nitrate Urine Negative (Negative); Protein Urine Neg (Negative); RBC Urine 0-4 /hpf (0-2); Squamous Epithelial Cell Urine 25-40 /hpf (0-5); Urine Appearance SL Hazy (CLEAR); Urine Color Yellow (Yellow); Urobilinogen Urine Norm (Negative); WBC Urine 15-25 /hpf (0-5); pH Urine 5 (5-7)
[2023-03-21 22:25] LABS: Acetaminophen 12.4 ug/mL (10-30)
[2023-03-21 22:30] VITALS: BP 107/73; PULSE 59; RESP 18; O2SAT 95
[2023-03-22 06:00] VITALS: BP 142/93; PULSE 63; RESP 15; TEMP 36.4; O2SAT 94
[2023-03-22] MEDS: duloxetine 30 mg Capsule PO (09:19)
[2023-03-22] MEDS: duloxetine 60 mg Capsule PO (11:25)
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
[2023-03-22 14:00] VITALS: BP 112/69; PULSE 74; RESP 15; TEMP 36.6; O2SAT 96
--- NOTE | 2023-03-22 14:33 | PC.OT ---
OT eval attempted at 13:42 with pt declining; will attempt again at later time.
[2023-03-22 20:50] VITALS: BP 136/81; PULSE 82; RESP 17; TEMP 36.4; O2SAT 95
[2023-03-23] MEDS: trazodone 50 mg Tablet PO ×2 (00:22→22:50)
[2023-03-23 06:00] VITALS: RESP 15
--- NOTE | 2023-03-23 06:44 | PC.NURSE ---
Patient resting. RR obtained
[2023-03-23] MEDS: duloxetine 30 mg Capsule PO (08:39)
[2023-03-23] MEDS: duloxetine 60 mg Capsule PO (08:39)
[2023-03-23] MEDS: nicotine 21 mg Patch 1 PATCH TRANSDERMA (08:41)
[2023-03-23 14:00] VITALS: BP 145/96; PULSE 87; RESP 18; TEMP 36.5; O2SAT 97
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
--- NOTE | 2023-03-23 17:16 | PC.OT ---
Patient declined OT eval at 8:11 am; will attempt again at later time.
[2023-03-23 20:35] VITALS: BP 147/95; PULSE 82; RESP 17; TEMP 36.6; O2SAT 94
[2023-03-23] MEDS: ibuprofen 600 mg Tablet PO (23:48)
[2023-03-24] MEDS: acetaminophen 325 mg Tablet 650 MG PO (01:42)
[2023-03-24] MEDS: duloxetine 30 mg Capsule PO (09:57)
[2023-03-24] MEDS: duloxetine 60 mg Capsule PO (09:57)
[2023-03-24] MEDS: nicotine 21 mg Patch 1 PATCH TRANSDERMA (11:07)
[2023-03-24] MEDS: OLANZapine 5 mg ODT PO (13:35)
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
[2023-03-24 15:36] VITALS: BP 147/95; PULSE 82; RESP 17; TEMP 36.6; O2SAT 94
== END 2023-03-24 16:09 | disposition home or self-care (01) | DRG 918 ==
LOC: ER 22:12 → NP 22:36
PROVIDERS: Admitting Provider Psychiatry & Neurology Psychiatry; Emergency Provider Emergency Medicine; PCP Family Medicine Adult Medicine; Visit Provider Psychiatry & Neurology Psychiatry
DX: T40.2X2A Poisoning by other opioids, intentional self-harm, initial encounter (principal); F11.20 Opioid dependence, uncomplicated; R45.851 Suicidal ideations; Y92.009 Unspecified place in unspecified non-institutional (private) residence as the place of occurrence of the external cause; T43.592A Poisoning by other antipsychotics and neuroleptics, intentional self-harm, initial encounter; T39.312A Poisoning by propionic acid derivatives, intentional self-harm, initial encounter; E11.9 Type 2 diabetes mellitus without complications; F17.210 Nicotine dependence, cigarettes, uncomplicated; F60.3 Borderline personality disorder; Z86.19 Personal history of other infectious and parasitic diseases; F10.20 Alcohol dependence, uncomplicated; F12.10 Cannabis abuse, uncomplicated; F15.10 Other stimulant abuse, uncomplicated; F32.9 Major depressive disorder, single episode, unspecified; F01-F99 Mental, behavioral and neurodevelopmental disorders; Z91.51 Personal history of suicidal behavior; G89.29 Other chronic pain; M54.2 Cervicalgia; M54.9 Dorsalgia, unspecified; I10 Essential (primary) hypertension
CPT/HCPCS: 36415; 80053; 80306; 80307; 81001; 85025; 93005; 97150; 97165; 99285

== ENCOUNTER → 2023-04-11 14:06 | Outpatient (BNVA) | payer MEDICAID, SELFPAY ==
[2021-08-24 15:39] VITALS: BP 164/96; BMI 26.2
== END ==
PROVIDERS: PCP Family Medicine Adult Medicine; Visit Provider Orthopaedic Surgery
DX: Z98.1 Arthrodesis status (principal); Z47.89 Encounter for other orthopedic aftercare
CPT/HCPCS: 72100

== ENCOUNTER → 2023-05-16 14:42 | Outpatient (BNVA) | payer MEDICAID, SELFPAY ==
[2021-08-24 15:39] VITALS: BP 164/96; BMI 26.2
== END ==
PROVIDERS: PCP Family Medicine Adult Medicine; Visit Provider Orthopaedic Surgery
DX: Z98.1 Arthrodesis status (principal)
CPT/HCPCS: 72100

== ENCOUNTER 2023-06-23 11:21 | Emergency (ER) | payer MEDICAID, SELFPAY ==
[2021-08-24 15:39] VITALS: BP 164/96; BMI 26.2
[2023-06-23 11:26] VITALS: BP 160/105; PULSE 102; RESP 17; TEMP 37.3; O2SAT 95
--- NOTE | 2023-06-23 11:50 | CT_ITS ---
WS: [id number] CT HEAD TECHNIQUE: Noncontrast CT of the head obtained from the skullbase to the vertex. CLINICAL INFORMATION: fall COMPARISON: 2018 DLP: 1123.[address] scans at [facility] use at least one of these dose optimization techniques: automated e xposure control; mA and/or kV adjustment per patient size (includes targeted exams where dose is matc hed to clinical indication); or iterative reconstruction. FINDINGS: Some images at the skull base degraded by beam hardening artifact. No evidence of intracranial hemorrhage or mass effect. Ventricular system and basal cisterns are valle nt. No extra-axial fluid collections. No evidence of mass or mass effect. Normal hammer-white different iation. Paranasal sinuses and mastoid air cells are well aerated. .Normal visualized soft tissues. Normal pos terior nasopharynx. IMPRESSION: 1. No evidence of intracranial hemorrhage or mass effect. 2. No acute intracranial findings.
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
[2023-06-23] MEDS: diphenhydrAMINE 50 mg/mL SDV 1mL IVP (12:15)
[2023-06-23] MEDS: ketorolac 30 mg/mL INJ 15 MG IVP (12:15)
[2023-06-23] MEDS: metoclopramide 5 mg/mL SDV 2 mL 10 MG IVP (12:15)
--- NOTE | 2023-06-23 12:28 | PC.PHAR ---
pt states she takes care of her own medications-pt states she is out of her naproxen now- pt states only takes the medications entered
[2023-06-23 13:01] VITALS: RESP 14
[2023-06-23] MEDS: morphine 4 mg/mL SDV 1 mL IVP (13:01)
[2023-06-23 13:13] VITALS: BP 108/76; PULSE 90; RESP 16; O2SAT 96
== END 2023-06-23 13:14 | disposition home or self-care (01) ==
PROVIDERS: Emergency Provider Emergency Medicine; PCP Family Medicine Adult Medicine
DX: R51.9 Headache, unspecified (principal); F17.210 Nicotine dependence, cigarettes, uncomplicated; Z86.19 Personal history of other infectious and parasitic diseases; E11.9 Type 2 diabetes mellitus without complications
CPT/HCPCS: 70450; 96374; 96375; 99285; J1200; J1885; J2270; J2765

== ENCOUNTER → 2023-07-18 13:49 | Outpatient (BNVA) | payer MEDICAID, SELFPAY ==
[2021-08-24 15:39] VITALS: BP 164/96; BMI 26.2
== END ==
PROVIDERS: PCP Family Medicine Adult Medicine; Visit Provider Orthopaedic Surgery
DX: Z98.1 Arthrodesis status (principal)
CPT/HCPCS: 72050; 72100

== ENCOUNTER 2023-08-14 11:44 | Outpatient (CLI) | payer MEDICAID, SELFPAY ==
[2021-08-24 15:39] VITALS: BP 164/96; BMI 26.2
--- NOTE | 2023-08-14 12:15 | MR_ITS ---
WS: [id number] MRI CERVICAL SPINE NONCONTRAST HISTORY: neck pain COMPARISON: 08/04/2015 Technique: Multiplanar, multisequence noncontrast imaging of the cervical spine. Straightening of the normal cervical lordosis. Very slight reversal of curvature at C5-6. Less than 2 mm anterolisthesis of C4. No acute fracture. Signal within the cervical cord is normal. Visualized posterior fossa is unremarkable. Craniocervical junction, C1 and C2 relationship, odontoid process and soft tissues are normal. C2-C3: Shallow central disc protrusion. No stenosis. C3-C4: Mild osteophytic ridging with bilateral foraminal disc osteophytes. Progression of foraminal s tenosis. Mild to moderate bilateral foraminal stenosis. C4-C5: Mild annular disc bulging. Facet joint arthritis. Very minimal foraminal narrowing. C5-C6: Osteophytic ridging and annular disc bulging. Mild encroachment upon the central canal. Mild c entral with moderate bilateral foraminal stenosis and facet arthritis. C6-C7: Mild osteophytic ridging encroaching upon the ventral thecal sac. Mild LEFT foraminal stenosis . C7-T1: Normal. RIGHT C3-4 and C4-5 facet joint synovitis. MR/MR cervical spin wo con* [id number] IMPRESSION: 1. Mild progression of bilateral foraminal stenosis at C3-4, mild to moderate due to disc osteophyte disease. 2. Very shallow central disc protrusion at C2-3. 3. Mild central with moderate bilateral foraminal stenosis and facet arthritis at C5-6. 4. Mild LEFT foraminal stenosis at C6-7. 5. Acute appearing RIGHT C3-4 and C4-5 facet joint synovitis. 6. Advanced degenerative disc disease at C5-6.
== END 2023-08-14 11:45 | disposition home or self-care (01) ==
LOC: RAD 11:44
PROVIDERS: PCP Family Medicine Adult Medicine; Visit Provider Orthopaedic Surgery
DX: M48.02 Spinal stenosis, cervical region (principal); M50.21 Other cervical disc displacement, high cervical region; M50.322 Other cervical disc degeneration at C5-C6 level; M25.78 Osteophyte, vertebrae; M65.88 Other synovitis and tenosynovitis, other site
CPT/HCPCS: 72141

== ENCOUNTER → 2023-08-17 15:11 | Outpatient (BNVA) | payer MEDICAID, SELFPAY ==
[2021-08-24 15:39] VITALS: BP 164/96; BMI 26.2
== END ==
PROVIDERS: PCP Family Medicine Adult Medicine; Visit Provider Orthopaedic Surgery
DX: M47.22 Other spondylosis with radiculopathy, cervical region (principal); E11.69 Type 2 diabetes mellitus with other specified complication; E66.9 Obesity, unspecified
CPT/HCPCS: 80053; 81001; 83036; 85025

== ENCOUNTER 2023-09-12 21:09 | Inpatient (IN) | payer MEDICAID, SELFPAY ==
[2021-08-24 15:39] VITALS: BP 164/96; BMI 26.2
[2023-09-12 21:12] VITALS: BP 132/100; PULSE 81; RESP 18; TEMP 36.7; O2SAT 95; BMI 40.3
--- NOTE | 2023-09-12 21:18 | ECG_ITS ---
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 Measurements Intervals [place] Rate: 81 P: 67 MN: 157 QRS: 15 QRSD: 93 T: 43 QT: 380 QTc: 442 Interpretive Statements SINUS RHYTHM POSSIBLE LEFT ATRIAL ENLARGEMENT [-0.1mV P-WAVE IN V1/V2] Compared to ECG 03/21/2023 19:41:35 T-wave abnormality no longer present Electronically Signed On 09-12-2023 23:43:04 CDT by Shirley Gonzalez M.D. [id number]
[2023-09-12 22:04] LABS: Basophils # 0.1 10^3/uL (0.0-0.1); Basophils % 0.9 %; Eosinophils # 0.1 10^3/uL (0.0-0.8); Eosinophils % 1.7 %; Hematocrit 37.5 % (36-47); Lymphocytes # 2.3 10^3/uL (0.8-4.8); Lymphocytes % 39.2 %; Mean Corpuscular HGB Conc 30.9 g/dL (30-55); Mean Corpuscular Hemoglobin 26.6 pg (27-33); Mean Platelet Volume 10.8 fL (7.4-10.4); Monocytes # 0.4 10^3/uL (0.2-0.9); Monocytes % 7.5 %; Neutrophils # 2.96 10^3/uL (1.8-7.7); Neutrophils % 50.5 %; Nucleated Red Blood Cells % 0 %; Platelet Count 247 10^3/cmm (157-399); Red Blood Count 4.36 10^6/uL (3.85-5.65); White Blood Count 5.86 10^3/uL (3.29-11.43)
[2023-09-12 22:13] LABS: Acetaminophen 14.4 ug/mL (10-30); Alanine Aminotransferase 77 U/L (0-33); Albumin Level 3.7 g/dL (3.5-5.2); Alcohol Level 70 mg/dL (0-10); Alkaline Phosphatase 198 U/L (35-105); Blood Urea Nitrogen 4 mg/dL (6-20); Calcium 8.3 mg/dL (8.5-10.5); Carbon Dioxide 20 mmol/L (22-29); Chloride 92 mmol/L (98-107); Creatinine Clr Calc Pharmacy 179.6401; Globulin 3.3 g/dL (1.3-4.6); Glomerular Filtration Rate 132.8 mL/min (90-130); Osmolality Calculated 294 mOsm/kg (285-295); Salicylate < 0.3 mg/dL (3-10); Sodium 128 mmol/L (136-145); Total Bilirubin 0.3 mg/dL (0.15-1.2)
[2023-09-12 22:14] LABS: Aspartate Amino Transferase 99 U/L (0-32)
[2023-09-12 22:15] LABS: Glucose 665 mg/dL (65-115)
[2023-09-12 22:16] LABS: Thyroid Stimulating Hormone 0.92 uIU/mL (0.27-4.20)
[2023-09-12 22:35] LABS: Amphetamines Screen Urine Positive (Negative); Barbiturates Screen Urine Negative (Negative); Benzodiazepines Screen Urine Positive (Negative); Cocaine Screen Urine Negative (Negative); Opiate Screen Urine Positive (Negative); PCP Screen Urine Negative (Negative); THC Screen Urine Positive (Negative)
--- NOTE | 2023-09-12 22:35 | W.ED.PSYCHS ---
Documented by User: Bonnie Leone MD 09/13/23 05:26 HPI - Psych General: Chief Complaint: Psychiatric Symptoms Stated Complaint: DEPRESSION Time Seen by Provider: 09/12/23 21:11 History of Present Illness: 48-year-old female with a history of marijuana dependence, alcohol dependence, hepatitis C, type 2 diabetes mellitus and history of migraines who presents to the emergency room with agitation and concern for alcohol intoxication with police after they were called for domestic. Apparently there she had said she did not care if she lived anymore and was somewhat combative with the police. Here she is still quite agitated and says she does not want to be here. Cannot get much other history. Review of Systems Narrative: Constitutional symptoms: Negative except as documented in HPI. Skin symptoms: Negative except as documented in HPI. Eye symptoms: Negative except as documented in HPI. ENMT symptoms: Negative except as documented in HPI. Respiratory symptoms: Negative except as documented in HPI. Cardiovascular symptoms: Negative except as documented in HPI. Gastrointestinal symptoms: Negative except as documented in HPI. Genitourinary symptoms: Negative except as documented in HPI. Musculoskeletal symptoms: Negative except as documented in HPI. Neurologic symptoms: Negative except as documented in HPI. Psychiatric symptoms: Negative except as documented in HPI. Endocrine symptoms: Negative except as documented in HPI. PFSH ED PFSH: Medical History Marijuana dependence daily use Alcohol dependence daily use Elevated blood pressure reading Hepatitis C Per patient Diabetes mellitus type 2 in obese Knee pain, right Chronic neck and back pain Cigarette nicotine dependence Other stimulant abuse with stimulant-induced mood disorder last use meth 08/29/23 Opioid use disorder Psychiatric care Borderline personality disorder Compression fracture of L1 lumbar vertebra Hx of migraines Surgical History History of back surgery H/O knee surgery Family History Other Family history non-contributory Social History Smoking and tobacco/nicotine status: current every day tobacco/nicotine user (half-pack /day) cigarettes Packs smoked per day: 0.5 Years cigarettes smoked: 25 Quit status (tobacco/nicotine): has tried quititng Number of times tried to quit tobacco: 2 Second hand smoke exposure: Yes (Sometimes.) Alcohol intake: former Substance/Drug Use: former Date of last use: 2021 Female Reproductive History: Date of last menstrual period: 08/23/23 Physical Exam Narrative: EXAM NARRATIVE: General: Alert. no acute distress Skin: Warm, dry Head: Normocephalic, atraumatic. Neck: Supple, trachea midline. Eye: Extraocular movements are intact. Ears, nose, mouth and throat: Dry oral mucosa Cardiovascular: Regular rate and rhythm, Normal peripheral perfusion. Respiratory: Lungs are clear to auscultation, respirations are non-labored, breath sounds are equal, Symmetrical chest wall expansion. Gastrointestinal: Soft, Nontender, Non distended, Normal bowel sounds. Musculoskeletal: Normal ROM, no deformity. Neurological: Alert, but agitated difficult to examine., No focal neurological deficit observed. Psychiatric: Patient is somewhat agitated. Course Vital Signs: Vital signs: Vital Signs Temperature 97.9 F 09/13/23 14:00 Pulse Rate 66 09/13/23 14:00 Respiratory Rate 18 09/13/23 14:00 Blood Pressure 149/100 09/13/23 14:00 Pulse Oximetry 97 09/13/23 14:00 Oxygen Delivery Me thod Room Air 09/13/23 14:00 Oxygen Flow Rate 2 09/12/23 23:52 MDM - Psych Medical Decision Making Differential diagnosis: Patient with reported depression and suicidal ideation. concerns for infection, alcohol intoxication, cardiac issues or other medical problems prior to psychiatric admission. Workup: labwork, ekg ordered to evaluate the pathologies and to clear the patient medically prior to psychiatric admission EKG: Time 2130. Rate 81. Normal sinus rhythm, No ST-T changes, no ectopy, normal NH & QRS intervals, This was reviewed and interpreted by myself the ER physician at 2134 Lab Review: Laboratory results were reviewed and interpreted by myself the emergency room physician. Lab review: -Blood glucose is 665. Bicarb is 20. Sodium is 128. ABG is being added. - EKG shows no ischemic changes. - Blood alcohol level is 70. - Drug screen is positive for an feta means, cocaine, opiates - No signs of infection, urinalysis clear and white count is not elevated - No anemia. - BUN and creatinine are within normal limits. Patient received 2 L normal saline bolus and 10 units of insulin and sugar came down to 220. She is currently very somnolent and we are unable to assess her further if she needs admission to the psychiatric unit or can go home. Please had said that at some point she said she did not want to live but she was so combative that they could not really evaluate her whether she needed to go to penitentiary or come to the emergency room so they brought her to the emergency room. They filled out affidavits but felt that if she became less psychotic she could probably go home. Patient care transitioned to Dr. Shaw at shift change Lab Data 09/13/23 09:22 09/13/23 09:22 Radiology Impressions Chest X-Ray 09/13/23 06:46 IMPRESSION: No acute findings. Head CT 09/13/23 07:01 IMPRESSION: No acute intracranial abnormality. Laboratory Results WBC 6.18 10^3/uL (3.29-11.43) 09/13/23 09:22 RBC 4.41 10^6/uL (3.85-5.65) 09/13/23 09:22 Hgb 11.70 g/dL (11.27-16.99) 09/13/23 09:22 Hct 38.1 % (36-47) 09/13/23 09:22 MCV 86.4 fl (85-98) 09/13/23 09:22 MCH 26.5 pg (27-33) L 09/13/23 09:22 MCHC 30.7 g/dL (30-55) 09/13/23 09:22 RDW 17.0 % (12.1-15.1) H 09/13/23 09:22 Plt Count 208 10^3/cmm (157-399) 09/13/23 09:22 MPV 10.2 fL (7.4-10.4) 09/13/23 09:22 Neut % (Auto) 51.9 % 09/13/23 09:22 Lymph % (Auto) 37.2 % 09/13/23 09:22 [place] % (Auto) 7.9 % 09/13/23 09:22 Eos % (Auto) 2.1 % 09/13/23 09:22 Baso % (Auto) 0.6 % 09/13/23 09:22 Neut # (Auto) 3.20 10^3/uL (1.8-7.7) 09/13/23 09:22 Lymph # (Auto) 2.3 10^3/uL (0.8-4.8) 09/13/23 09:22 [place] # (Auto) 0.5 10^3/uL (0.2-0.9) 09/13/23 09:22 Eos # (Auto) 0.1 10^3/uL (0.0-0.8) 09/13/23 09:22 Baso # (Auto) 0.0 10^3/uL (0.0-0.1) 09/13/23 09:22 Nucleated RBC % (auto) 0 % 09/13/23 09: Nucleated RBCs # 0.0 /100WBC 09/13/23 09:22 PT 13.30 SECONDS (12.1-14.9) 09/13/23 09:22 INR 0.98 (0.8-1.2) 09/13/23 09: APTT 24.6 SECONDS (23.9-36.7) 09/13/23 09:22 Specimen Type Arterial 09/13/23 06:37 Sample Site Radial, left 09/13/23 06:37 ABG pH 7.41 (7.35-7.45) 09/13/23 06:37 ABG pCO2 38.1 mmHg (35-45) 09/13/23 06:37 ABG pO2 106.0 mmHg (80.0-100.0) H 09/13/23 06:37 ABG HCO3 24.3 mmol/L (22-26) 09/13/23 06:37 ABG O2 Saturation 98.7 09/13/23 06:37 ABG Base Excess -0.1 mmol/L (-2.0-2.0) 09/13/23 06:37 David Test Pos 09/13/23 06:37 A-a O2 Gradient 0.0 mmHg (5-10) L 09/13/23 06:37 Hematocrit 36.3 % (37-47) L 09/13/23 06:37 Hgb O2 Saturation 96.9 % (95-100) 09/13/23 06:37 Carboxyhemoglobin 1.6 %THgb (0.4-20.1) 09/13/23 06:37 Methemoglobin 0.3 % (0.4-1.5) L 09/13/23 06:37 Total Hemoglobin 11.8 g/dL (12-16) L 09/13/23 06:37 Sodium 139.0 mmol/L (131-143) 09/13/23 06:37 Potassium 4.0 mmol/L (3.5-5.0) 09/13/23 06:37 Glucose 302.0 mg/dL (70-115) H 09/13/23 06:37 Ionized Calcium 1.1 mmol/L (1.1-1.4) 09/13/23 06:37 O2 Delivery Device Nc 09/13/23 06:37 O2 Liters/Min 2.0 % 09/13/23 06:37 Utility Spray Operator ID [email or web address] 09/13/23 06:37 Sodium 141 mmol/L (136-145) D 09/13/23 09:22 Potassium 3.3 mmol/L (3.5-5.1) L 09/13/23 09:22 Chloride 107 mmol/L (98-107) 09/13/23 09:22 Carbon Dioxide 24 mmol/L (22-29) 09/13/23 09:22 Anion Gap 13.3 (5-19) 09/13/23 09:22 BUN 4 mg/dL (6-20) L 09/13/23 09:22 Creatinine 0.5 mg/dL (0.5-0.9) 09/13/23 09:22 GFR Calculation 132.8 mL/min (90-130) H 09/13/23 09:22 Glucose 195 mg/dL (65-115) H 09/13/23 09:22 POC Glucose 162 mg/dL (70-110) H 09/13/23 10:03 Estimat Average Glucose 341 09/12/23 21:37 Hemoglobin A1c 13.5 % (4.0-6.0) H 09/12/23 21:37 Calculated Osmolality 294 mOsm/kg (285-295) 09/13/23 09:22 Lactic Acid 2.9 mmol/L (0.5-2.2) H 09/12/23 21:37 Lactic Acid (Sepsis) 3.5 mmol/L (0.5-2.2) H 09/13/23 00:39 Calcium 8.1 mg/dL (8.5-10.5) L 09/13/23 09:22 Total Bilirubin 0.3 mg/dL (0.15-1.2) 09/13/23 09:22 AST 70 U/L (0-32) H 09/13/23 09:22 ALT 65 U/L (0-33) H 09/13/23 09:22 Alkaline Phosphatase 176 U/L (35-105) H 09/13/23 09:22 Ammonia 23 umol/L (11-51) 09/13/23 09:22 Troponin T Baseline 7 ng/L (0-10) 09/13/23 09:22 Total Protein 6.0 g/dL (6.6-8.7) L 09/13/23 09:22 Albumin 3.4 g/dL (3.5-5.2) L 09/13/23 09:22 Globulin 2.6 g/dL (1.3-4.6) 09/13/23 09:22 Procalcitonin 0.06 ng/mL (0-0.5) 09/13/23 09:22 TSH 0.92 uIU/mL (0.27-4.20) 09/12/23 21:37 HCG, Qual Negative (Negative) 09/12/23 22:17 Urine Color Yellow (Yellow) 09/12/23 22:17 Urine Appearance Clear (CLEAR) 09/12/23 22:17 Urine pH 5 (5-7) 09/12/23 22:17 Ur Specific [place] 1.010 (1.005-1.030) 09/12/23 22:17 Urine Protein Neg (Negative) 09/12/23 22:17 Urine Glucose (UA) 4+ (Normal) H 09/12/23 22:17 Urine Ketones Negative (Negative) 09/12/23 22:17 Urine Blood Neg (Negative) 09/12/23 22:17 Urine Nitrate Negative (Negative) 09/12/23 22:17 Urine Bilirubin Neg (Negative) 09/12/23 22:17 Urine Urobilinogen Neg mg/dL (Negative) 09/12/23 22:17 Ur Leukocyte Esterase Negative (Negative) 09/12/23 22:17 Urine RBC 0-4 /hpf (0-2) H 09/12/23 22:17 Urine WBC 0-4 /hpf (0-5) H 09/12/23 22:17 Ur Squamous Epith Cells 0-4 /hpf (0-5) H 09/12/23 22:17 Amorphous Sediment Not Reportable 09/12/23 22:17 Urine Bacteria 2+ /hpf (NONE) H 09/12/23 22:17 Urine Yeast 2+ /hpf H 09/12/23 22:17 Salicylates < 0.3 mg/dL (3-10) L 09/12/23 21:37 Urine Opiates Screen Positive ng/mL (Negative) H 09/12/23 22:17 Acetaminophen 14.4 ug/mL (10-30) 09/12/23 21:37 Ur Barbiturates Screen Negative ng/mL (Negative) 09/12/23 22:17 Ur Phencyclidine Scrn Negative ng/mL (Negative) 09/12/23 22:17 Ur Amphetamines Screen Positive ng/mL (Negative) H 09/12/23 22:17 U Benzodiazepines Scrn Positive ng/mL (Negative) H 09/12/23 22:17 Urine Cocaine Screen Negative ng/mL (Negative) 09/12/23 22:17 U Marijuana (THC) Screen Positive ng/mL (Negative) H 09/12/23 22:17 Ethyl Alcohol < 10 mg/dL (0-10) 09/13/23 09:22 Serum Ketones Negative (Negative) 09/13/23 09:22 Hepatitis A IgM Ab Non-reactive (Nonreactive) 09/13/23 09:22 Hep Bs Antigen Non-reactive (Nonreactive) 09/13/23 09:22 Hep B Core IgM Ab Non-reactive (Nonreactive) 09/13/23 09:22 Hepatitis C Antibody Reactive (Nonreactive) H 09/13/23 09:22 Discharge Plan Discharge Patient Disposition: Admitted As Inpatient Admit Provider: Lanre Fiore Clinical Impression: Suicidal ideation, Acute psychosis, Alcohol intoxication, Diabetes mellitus type 2 in obese Condition: Stable Sign Out Sign Out Data: Patient Sign Out occurred on 09/13/23 at 06:30. Patient's care was discussed, and care was transferred from Bonnie Leone MD to Onofre Dubon DO. Coding Level of Care Code ED Driver Examiner for Chg Fwd Documented by User: Onofre Dubon DO 09/13/23 14:12 HPI - Psych General: Chief Complaint: Psychiatric Symptoms Stated Complaint: DEPRESSION Time Seen by Provider: 09/12/23 21:11 PFSH ED PFSH: Medical History Marijuana dependence daily use Alcohol dependence daily use Elevated blood pressure reading Hepatitis C Per patient Diabetes mellitus type 2 in obese Knee pain, right Chronic neck and back pain Cigarette nicotine dependence Other stimulant abuse with stimulant-induced mood disorder last use meth 08/29/23 Opioid use disorder Psychiatric care Borderline personality disorder Compression fracture of L1 lumbar vertebra Hx of migraines Surgical History History of back surgery H/O knee surgery Family History Other Family history non-contributory Social History Smoking and tobacco/nicotine status: current every day tobacco/nicotine user (half-pack /day) cigarettes Packs smoked per day: 0.5 Years cigarettes smoked: 25 Quit status (tobacco/nicotine): has tried quititng Number of times tried to quit tobacco: 2 Second hand smoke exposure: Yes (Sometimes.) Alcohol intake: former Substance/Drug Use: former Date of last use: 2021 Course Vital Signs: Vital signs: Vital Signs Temperature 97.9 F 09/13/23 14:00 Pulse Rate 66 09/13/23 14:00 Respiratory Rate 18 09/13/23 14:00 Blood Pressure 149/100 09/13/23 14:00 Pulse Oximetry 97 09/13/23 14:00 Oxygen Delivery Me thod Room Air 09/13/23 14:00 Oxygen Flow Rate 2 09/12/23 23:52 MDM - Psych Medical Decision Making Differential diagnosis: Patient with reported depression and suicidal ideation. concerns for infection, alcohol intoxication, cardiac issues or other medical problems prior to psychiatric admission. Workup: labwork, ekg ordered to evaluate the pathologies and to clear the patient medically prior to psychiatric admission EKG: Time 2130. Rate 81. Normal sinus rhythm, No ST-T changes, no ectopy, normal NH & QRS intervals, This was reviewed and interpreted by myself the ER physician at 2134 Lab Review: Laboratory results were reviewed and interpreted by myself the emergency room physician. Lab review: -Blood glucose is 665. Bicarb is 20. Sodium is 128. ABG is being added. - EKG shows no ischemic changes. - Blood alcohol level is 70. - Drug screen is positive for an feta means, cocaine, opiates - No signs of infection, urinalysis clear and white count is not elevated - No anemia. - BUN and creatinine are within normal limits. Patient received 2 L normal saline bolus and 10 units of insulin and sugar came down to 220. She is currently very somnolent and we are unable to assess her further if she needs admission to the psychiatric unit or can go home. Please had said that at some point she said she did not want to live but she was so combative that they could not really evaluate her whether she needed to go to penitentiary or come to the emergency room so they brought her to the emergency room. They filled out affidavits but felt that if she became less psychotic she could probably go home. Patient care transitioned to Dr. Dubon at shift change Care assumed at change of shift chart reviewed. Patient came in mildly intoxicated has several other positives on her drug screen. Her glucose is elevated her ketones are elevated as well as her anion gap. Her last glycosylated hemoglobin is a little over 12. She was given insulin and fluids her blood sugar improved to just below 300 and is maintained there. She has a history of hepatitis C your liver enzymes are elevated but about the same range they have been recently. Blood pressure is elevated now per nursing report. Concerned the patient may be in early DKA. Her lactic acid and elevated ion gap could also be caused by her alcohol use. She did not have any leukocytosis or signs of infection in her urine. She does have some mild hyponatremia at 128 which corrects to 137 with her initial glucose and went to the blood was drawn. Repeat labs this morning including ABG ketones CMP, also noted patient is on 2 L by nasal cannula staff tells me she has been on that since she arrived will get a chest x-ray on her as well. Repeat labs all improved. We are able to titrate her off the oxygen she is now awake and responsive. Suspect her altered mental was used to polysubstance abuse. 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 Pope and Dr. Nieves Medical Records I reviewed the patient's medical records. Lab Data I reviewed the patient's lab results. 09/13/23 09:22 09/13/23 09:22 Radiology Impressions Chest X-Ray 09/13/23 06:46 IMPRESSION: No acute findings. Head CT 09/13/23 07:01 IMPRESSION: No acute intracranial abnormality. Laboratory Results WBC 6.18 10^3/uL (3.29-11.43) 09/13/23 09:22 RBC 4.41 10^6/uL (3.85-5.65) 09/13/23 09:22 Hgb 11.70 g/dL (11.27-16.99) 09/13/23 09:22 Hct 38.1 % (36-47) 09/13/23 09:22 MCV 86.4 fl (85-98) 09/13/23 09:22 MCH 26.5 pg (27-33) L 09/13/23 09:22 MCHC 30.7 g/dL (30-55) 09/13/23 09:22 RDW 17.0 % (12.1-15.1) H 09/13/23 09:22 Plt Count 208 10^3/cmm (157-399) 09/13/23 09:22 MPV 10.2 fL (7.4-10.4) 09/13/23 09:22 Neut % (Auto) 51.9 % 09/13/23 09:22 Lymph % (Auto) 37.2 % 09/13/23 09:22 [place] % (Auto) 7.9 % 09/13/23 09:22 Eos % (Auto) 2.1 % 09/13/23 09:22 Baso % (Auto) 0.6 % 09/13/23 09:22 Neut # (Auto) 3.20 10^3/uL (1.8-7.7) 09/13/23 09:22 Lymph # (Auto) 2.3 10^3/uL (0.8-4.8) 09/13/23 09:22 [place] # (Auto) 0.5 10^3/uL (0.2-0.9) 09/13/23 09:22 Eos # (Auto) 0.1 10^3/uL (0.0-0.8) 09/13/23 09:22 Baso # (Auto) 0.0 10^3/uL (0.0-0.1) 09/13/23 09:22 Nucleated RBC % (auto) 0 % 09/13/23 09:22 Nucleated RBCs # 0.0 /100WBC 09/13/23 09: PT 13.30 SECONDS (12.1-14.9) 09/13/23 09:22 INR 0.98 (0.8-1.2) 09/13/23 09: APTT 24.6 SECONDS (23.9-36.7) 09/13/23 09:22 Specimen Type Arterial 09/13/23 06:37 Sample Site Radial, left 09/13/23 06:37 ABG pH 7.41 (7.35-7.45) 09/13/23 06:37 ABG pCO2 38.1 mmHg (35-45) 09/13/23 06:37 ABG pO2 106.0 mmHg (80.0-100.0) H 09/13/23 06:37 ABG HCO3 24.3 mmol/L (22-26) 09/13/23 06:37 ABG O2 Saturation 98.7 09/13/23 06:37 ABG Base Excess -0.1 mmol/L (-2.0-2.0) 09/13/23 06:37 David Test Pos 09/13/23 06:37 A-a O2 Gradient 0.0 mmHg (5-10) L 09/13/23 06:37 Hematocrit 36.3 % (37-47) L 09/13/23 06:37 Hgb O2 Saturation 96.9 % (95-100) 09/13/23 06:37 Carboxyhemoglobin 1.6 %THgb (0.4-20.1) 09/13/23 06:37 Methemoglobin 0.3 % (0.4-1.5) L 09/13/23 06:37 Total Hemoglobin 11.8 g/dL (12-16) L 09/13/23 06:37 Sodium 139.0 mmol/L (131-143) 09/13/23 06:37 Potassium 4.0 mmol/L (3.5-5.0) 09/13/23 06:37 Glucose 302.0 mg/dL (70-115) H 09/13/23 06:37 Ionized Calcium 1.1 mmol/L (1.1-1.4) 09/13/23 06:37 O2 Delivery Device Nc 09/13/23 06:37 O2 Liters/Min 2.0 % 09/13/23 06:37 Utility Spray Operator ID [email or web address] 09/13/23 06:37 Sodium 141 mmol/L (136-145) D 09/13/23 09:22 Potassium 3.3 mmol/L (3.5-5.1) L 09/13/23 09:22 Chloride 107 mmol/L (98-107) 09/13/23 09:22 Carbon Dioxide 24 mmol/L (22-29) 09/13/23 09:22 Anion Gap 13.3 (5-19) 09/13/23 09:22 BUN 4 mg/dL (6-20) L 09/13/23 09:22 Creatinine 0.5 mg/dL (0.5-0.9) 09/13/23 09:22 GFR Calculation 132.8 mL/min (90-130) H 09/13/23 09:22 Glucose 195 mg/dL (65-115) H 09/13/23 09:22 POC Glucose 162 mg/dL (70-110) H 09/13/23 10:03 Estimat Average Glucose 341 09/12/23 21:37 Hemoglobin A1c 13.5 % (4.0-6.0) H 09/12/23 21:37 Calculated Osmolality 294 mOsm/kg (285-295) 09/13/23 09:22 Lactic Acid 2.9 mmol/L (0.5-2.2) H 09/12/23 21:37 Lactic Acid (Sepsis) 3.5 mmol/L (0.5-2.2) H 09/13/23 00:39 Calcium 8.1 mg/dL (8.5-10.5) L 09/13/23 09:22 Total Bilirubin 0.3 mg/dL (0.15-1.2) 09/13/23 09:22 AST 70 U/L (0-32) H 09/13/23 09:22 ALT 65 U/L (0-33) H 09/13/23 09:22 Alkaline Phosphatase 176 U/L (35-105) H 09/13/23 09:22 Ammonia 23 umol/L (11-51) 09/13/23 09:22 Troponin T Baseline 7 ng/L (0-10) 09/13/23 09:22 Total Protein 6.0 g/dL (6.6-8.7) L 09/13/23 09:22 Albumin 3.4 g/dL (3.5-5.2) L 09/13/23 09:22 Globulin 2.6 g/dL (1.3-4.6) 09/13/23 09:22 Procalcitonin 0.06 ng/mL (0-0.5) 09/13/23 09: TSH 0.92 uIU/mL (0.27-4.20) 09/12/23 21:37 HCG, Qual Negative (Negative) 09/12/23 22:17 Urine Color Yellow (Yellow) 09/12/23 22:17 Urine Appearance Clear (CLEAR) 09/12/23 22:17 Urine pH 5 (5-7) 09/12/23 22:17 Ur Specific [place] 1.010 (1.005-1.030) 09/12/23 22:17 Urine Protein Neg (Negative) 09/12/23 22:17 Urine Glucose (UA) 4+ (Normal) H 09/12/23 22:17 Urine Ketones Negative (Negative) 09/12/23 22:17 Urine Blood Neg (Negative) 09/12/23 22:17 Urine Nitrate Negative (Negative) 09/12/23 22:17 Urine Bilirubin Neg (Negative) 09/12/23 22:17 Urine Urobilinogen Neg mg/dL (Negative) 09/12/23 22:17 Ur Leukocyte Esterase Negative (Negative) 09/12/23 22:17 Urine RBC 0-4 /hpf (0-2) H 09/12/23 22:17 Urine WBC 0-4 /hpf (0-5) H 09/12/23 22:17 Ur Squamous Epith Cells 0-4 /hpf (0-5) H 09/12/23 22:17 Amorphous Sediment Not Reportable 09/12/23 22:17 Urine Bacteria 2+ /hpf (NONE) H 09/12/23 22:17 Urine Yeast 2+ /hpf H 09/12/23 22:17 Salicylates < 0.3 mg/dL (3-10) L 09/12/23 21:37 Urine Opiates Screen Positive ng/mL (Negative) H 09/12/23 22:17 Acetaminophen 14.4 ug/mL (10-30) 09/12/23 21:37 Ur Barbiturates Screen Negative ng/mL (Negative) 09/12/23 22:17 Ur Phencyclidine Scrn Negative ng/mL (Negative) 09/12/23 22:17 Ur Amphetamines Screen Positive ng/mL (Negative) H 09/12/23 22:17 U Benzodiazepines Scrn Positive ng/mL (Negative) H 09/12/23 22:17 Urine Cocaine Screen Negative ng/mL (Negative) 09/12/23 22:17 U Marijuana (THC) Screen Positive ng/mL (Negative) H 09/12/23 22:17 Ethyl Alcohol < 10 mg/dL (0-10) 09/13/23 09:22 Serum Ketones Negative (Negative) 09/13/23 09:22 Hepatitis A IgM Ab Non-reactive (Nonreactive) 09/13/23 09:22 Hep Bs Antigen Non-reactive (Nonreactive) 09/13/23 09:22 Hep B Core IgM Ab Non-reactive (Nonreactive) 09/13/23 09:22 Hepatitis C Antibody Reactive (Nonreactive) H 09/13/23 09:22 All radiology interpretation(s) finalized by discharge Discharge Plan Discharge Patient Disposition: Admitted As Inpatient Admit Provider: Lanre Fiore Clinical Impression: Suicidal ideation, Acute psychosis, Alcohol intoxication, Diabetes mellitus type 2 in obese Condition: Stable Sign Out Sign Out Data: Patient Sign Out occurred on 09/13/23 at 06:30. Patient's care was discussed, and care was transferred from Bonnie Leone MD to Onofre Dubon DO. Coding Level of Care Code ED Driver Examiner for Rhonda Rey
[2023-09-12 22:42] LABS: Bilirubin Urine Neg (Negative); Blood Urine Neg (Negative); Glucose Urine UA 4+ (Normal); Ketones Urine Negative (Negative); Leukocyte Esterase Urine Negative (Negative); Nitrate Urine Negative (Negative); Protein Urine Neg (Negative); Urine Appearance Clear (CLEAR); Urine Color Yellow (Yellow); Urobilinogen Urine Neg (Negative); pH Urine 5 (5-7)
[2023-09-12 22:43] LABS: Add Urine Culture? Yes; Bacteria Urine 2+ /hpf; RBC Urine 0-4 /hpf (0-2); Squamous Epithelial Cell Urine 0-4 /hpf (0-5); WBC Urine 0-4 /hpf (0-5)
[2023-09-12 22:48] LABS: Ketone (Acetest) Serum Positive (Negative)
[2023-09-12] MEDS: insulin regular-human 100 units/1 mL 10 UNIT IVP (22:51)
[2023-09-12] MEDS: sodium chloride 0.9% 1,000 ML 999 ML IV ×2 (22:51)
[2023-09-12 22:52] LABS: Lactic Sepsis W/Reflex 2.9 mmol/L (0.5-2.2)
[2023-09-12 22:53] LABS: ABG PCO2 42.8 mmHg (35-45); ABG PH Result 7.34 (7.35-7.45); Alveolar-Arterial Oxygen Gradi 4.6 mmHg (5-10); Arterial Blood Gas Hematocrit 34.1 % (37-47); Base Excess ABG -2.6 mmol/L (-2.0-2.0); Blood Gas Sample Site Brachial, right; Blood Gas Sample Type Arterial; Carboxyhemoglobin 3.3 %THgb (0.4-20.1); HCO3 ABG 23.1 mmol/L (22-26); HGB O2 Sat 86.6 % (95-100); Ionized Calcium Level - ABG 1.1 mmol/L (1.1-1.4); Methemoglobin 0.8 % (0.4-1.5); Oxygen Device ROOM AIR; Oxygen Saturation ABG 90.4; Potassium Level - ABG 3.9 mmol/L (3.5-5.0); Total Hemoglobin 11.1 g/dL (12-16)
[2023-09-12 22:58] LABS: HCG Qualitative Urine. Negative (Negative)
[2023-09-12 23:52] VITALS: PULSE 68; O2SAT 98
[2023-09-13] VITALS (17 sets, daily range): BP systolic 100–160; BP diastolic 65–100; PULSE 62–71; RESP 10–18; TEMP 36.6; O2SAT 92–100
[2023-09-13 00:20] LABS: Reflex Lactate Order REFLEX LACTIC ORDERD
[2023-09-13 00:42] LABS: Glucose Point of Care 219 mg/dL (70-110)
[2023-09-13 01:03] LABS: Lactic Acid level (Lactate) 3.5 mmol/L (0.5-2.2)
[2023-09-13 01:45] LABS: Glucose Point of Care 248 mg/dL (70-110)
[2023-09-13 06:38] LABS: Glucose Point of Care 283 mg/dL (70-110)
--- NOTE | 2023-09-13 06:46 | XRR_ITS ---
PROCEDURE INFORMATION: Exam: XR Chest Exam date and time: 09/13/2023 7:30 AM Age: 48 years old Clinical indication: Cough and dyspnea; Additional info: Dyspnea/cough TECHNIQUE: Imaging protocol: Radiologic exam of the chest. Views: 1 view. COMPARISON: CR XR chest 1V portable [id number] 12/11/2022 3:48 PM FINDINGS: Lungs: Hypoventilatory changes at the right lung base. Pleural spaces: Unremarkable. No pleural effusion. No pneumothorax. Heart/Mediastinum: Unremarkable. No cardiomegaly. Diaphragm: Elevation of the right hemidiaphragm. Bones/joints: Unremarkable. XR/XR chest 1V portable [id number] IMPRESSION: No acute findings.
[2023-09-13] MEDS: sodium chloride 0.9% 1,000 ML 999 ML IV (06:47)
[2023-09-13] MEDS: cefTRIAXone 1,000 MG in sodium chloride 0.9% (plus) 50 ML 100 MG IV (06:47)
[2023-09-13 06:49] LABS: ABG PCO2 38.1 mmHg (35-45); ABG PH Result 7.41 (7.35-7.45); Arterial Blood Gas Hematocrit 36.3 % (37-47); Base Excess ABG -0.1 mmol/L (-2.0-2.0); Blood Gas Allen Test Pos; Blood Gas Sample Site Radial, left; Blood Gas Sample Type Arterial; Carboxyhemoglobin 1.6 %THgb (0.4-20.1); HCO3 ABG 24.3 mmol/L (22-26); HGB O2 Sat 96.9 % (95-100); Ionized Calcium Level - ABG 1.1 mmol/L (1.1-1.4); Methemoglobin 0.3 % (0.4-1.5); Oxygen Device NC; Oxygen Saturation ABG 98.7; Total Hemoglobin 11.8 g/dL (12-16)
--- NOTE | 2023-09-13 07:01 | CTR_ITS ---
PROCEDURE INFORMATION: Exam: CT Head Without Contrast Exam date and time: 09/13/2023 7:09 AM Age: 48 years old Clinical indication: Altered mental status/memory loss; Additional info: AMS TECHNIQUE: Imaging protocol: Computed tomography of the head without contrast. Radiation optimization: All CT scans at this facility use at least one of these dose optimization techniques: automated exposure control; mA and/or kV adjustment per patient size (includes targeted exams where dose is matched to clinical indication); or iterative reconstruction. COMPARISON: CT head wo con* [id number] 06/23/2023 12:05 PM RADIATION DOSE METRICS: Total DLP (mGy-cm): 2286 FINDINGS: Brain: Normal. No hemorrhage. Unremarkable white matter. No mass effect. Cerebral ventricles: No ventriculomegaly. Paranasal sinuses: Visualized sinuses are unremarkable. No fluid levels. Mastoid air cells: Visualized mastoid air cells are well aerated. Bones: Unremarkable. No acute fracture. Soft tissues: Unremarkable. CT/CT head wo con* [id number] IMPRESSION: No acute intracranial abnormality.
--- NOTE | 2023-09-13 07:26 | PC.PHAR ---
PT UNABLE TO VERIFY MEDICATIONS OR WHEN SHE LAST TOOK THEM. PT IS CONSISTENT WITH CURRENT FILL DATES. MED REC COMPLETED FROM THOSE FILL DATES AND QTY DISPENSED FROM [facility]. NO OUTSIDE MEDICATONS FOUND.
--- NOTE | 2023-09-13 07:28 | ECG_ITS ---
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 Measurements Intervals [place] Rate: 65 P: 63 HI: 156 QRS: 5 QRSD: 84 T: 5 QT: 442 QTc: 460 Interpretive Statements SINUS RHYTHM POSSIBLE LEFT ATRIAL ENLARGEMENT [-0.1mV P-WAVE IN V1/V2] INTERPRETATION BASED ON A DEFAULT AGE OF 40 YEARS Compared to ECG 09/12/2023 21:31:18 No significant changes Electronically Signed On 09-13-2023 9:42:08 CDT by Shyam Lee M.D. [id number] f
--- NOTE | 2023-09-13 08:12 | PC.NURSE ---
Glucose via Fingerstick: 300 @9772
[2023-09-13] MEDS: insulin regular-human 100 units/1 mL 17 UNIT IVP (08:22)
[2023-09-13 08:24] LABS: Glucose Point of Care 300 mg/dL (70-110)
--- NOTE | 2023-09-13 08:53 | ECG_ITS ---
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 Measurements Intervals [place] Rate: 57 P: 61 IA: 166 QRS: 3 QRSD: 90 T: 6 QT: 446 QTc: 438 Interpretive Statements SINUS BRADYCARDIA WITH SINUS ARRHYTHMIA POSSIBLE LEFT ATRIAL ENLARGEMENT [-0.1mV P-WAVE IN V1/V2] Compared to ECG 09/13/2023 07:28:44 Sinus rhythm no longer present Electronically Signed On 09-13-2023 9:43:21 CDT by Shyam Lee M.D. [id number]
--- NOTE | 2023-09-13 09:00 | PC.NURSE ---
Glucose 270 @0900
[2023-09-13 09:30] LABS: Glucose Point of Care 270 mg/dL (70-110)
[2023-09-13 09:40] LABS: Glucose Point of Care 165 mg/dL (70-110)
[2023-09-13 09:46] LABS: Basophils % 0.6 %; Eosinophils # 0.1 10^3/uL (0.0-0.8); Eosinophils % 2.1 %; Hematocrit 38.1 % (36-47); Lymphocytes # 2.3 10^3/uL (0.8-4.8); Lymphocytes % 37.2 %; Mean Corpuscular HGB Conc 30.7 g/dL (30-55); Mean Corpuscular Hemoglobin 26.5 pg (27-33); Mean Corpuscular Volume 86.4 fl (85-98); Mean Platelet Volume 10.2 fL (7.4-10.4); Monocytes # 0.5 10^3/uL (0.2-0.9); Monocytes % 7.9 %; Neutrophils % 51.9 %; Nucleated Red Blood Cells % 0 %; Platelet Count 208 10^3/cmm (157-399); Red Blood Count 4.41 10^6/uL (3.85-5.65); White Blood Count 6.18 10^3/uL (3.29-11.43)
[2023-09-13 10:01] LABS: Ketone (Acetest) Serum Negative (Negative)
[2023-09-13 10:06] LABS: Glucose Point of Care 162 mg/dL (70-110)
[2023-09-13 10:08] LABS: INR 0.98 (0.8-1.2)
[2023-09-13 10:09] LABS: Partial Thromboplastin Time 24.6 SECONDS (23.9-36.7)
[2023-09-13 10:14] LABS: Alanine Aminotransferase 65 U/L (0-33); Albumin Level 3.4 g/dL (3.5-5.2); Alkaline Phosphatase 176 U/L (35-105); Aspartate Amino Transferase 70 U/L (0-32); Blood Urea Nitrogen 4 mg/dL (6-20); Calcium 8.1 mg/dL (8.5-10.5); Carbon Dioxide 24 mmol/L (22-29); Chloride 107 mmol/L (98-107); Creatinine Clr Calc Pharmacy 179.6401; Globulin 2.6 g/dL (1.3-4.6); Glomerular Filtration Rate 132.8 mL/min (90-130); Glucose 195 mg/dL (65-115); Osmolality Calculated 294 mOsm/kg (285-295); Sodium 141 mmol/L (136-145); Total Bilirubin 0.3 mg/dL (0.15-1.2)
[2023-09-13 10:15] LABS: Ammonia 23 umol/L (11-51)
[2023-09-13 10:16] LABS: Alcohol Level < 10 mg/dL (0-10); Anion Gap 13.3 (5-19); Potassium 3.3 mmol/L (3.5-5.1); Troponin(5th) Baseline 7 ng/L (0-10)
[2023-09-13 10:20] LABS: Procalcitonin 0.06 ng/mL (0-0.5)
[2023-09-13 11:23] LABS: Glucose Point of Care 188 mg/dL (70-110)
[2023-09-13 12:11] LABS: Estmated Average Glucose 341; Hemoglobin A1C 13.5 % (4.0-6.0)
--- NOTE | 2023-09-13 12:12 | P.CONIM_ITS ---
Providers/Reason For Consult 2 Consulting Physician/Specialty*: Dante Davila MD, Hospitalist Reason for Consult*: Diabetes mellitus Attending Physician: Lanre Fiore MD Primary Care Provider: Alex Hodge MD History of Present Illness History of Present Illness Mitra Coon is a 48 year old female with history of diabetes not currently on any treatment who presents to the hospital with suicidal ideation, intoxication. She reports history of drug use, amphetamines usually by ingestion or smoking but no IV use. She reports she is feeling okay now. She seems shocked that I told her she is going to the neuropsychiatric unit currently. She reports she has not been on any blood sugar medication in the past but has had diabetes for quite a while. She believed it to be diet controlled initially. She denies any recent fevers. She does admit to alcohol and drug use. In the emergency department her initial sugar was quite elevated and she received 10 units of insulin when coming in and then 17 units of regular insulin this morning. Blood sugars currently around 180. Initial anion gap was 20 and it appears her serum ketones were positive when her sugar was 665. However, just hours later after fluids and some subcutaneous insulin her anion gap is 13 with negative ketones. I do not think she truly had DKA on presentation. She may have had starvation ketosis associated with her alcohol and drug use. Either way, it looks significantly resolved. Review of Systems 2 General: Reports: 10 or more systems reviewed and unremarkable except in HPI and below GI: Reports: hematochezia (She reports blood in her stool with bowel movements for the last 6 months.) Medications/Allergies Home Medications Medication Instructions Recorded Confirmed Last Taken Type acetaminophen 500 mg tablet 1,000 mg PO Q6H PRN Pain 08/04/21 09/13/23 01/13/23 History (Tylenol Extra Strength) naproxen 500 mg tablet 500 mg PO BID PRN pain #60 tabs 01/03/23 09/13/23 01/16/23 Rx duloxetine 60 mg capsule,delayed 60 mg PO QAM #30 caps 08/30/23 09/13/23 Unknown Rx release (Cymbalta) hydroxyzine HCl 50 mg tablet 50 mg PO TID PRN anxiety #90 tabs 08/30/23 09/13/23 Unknown Rx olanzapine 10 mg tablet 10 mg PO BEDTIME #30 tabs 08/30/23 09/13/23 Unknown Rx propranolol 20 mg tablet 20 mg PO BID #60 tabs 08/30/23 09/13/23 Unknown Rx hydrocodone 5 mg-acetaminophen 325 1 tab PO Q8H PRN pain 7 days #21 09/12/23 09/13/23 Unknown Rx mg tablet tabs Allergies Allergy/AdvReac Type Severity Reaction Status Date / Time Sulfa (Sulfonamide AdvReac Intermediate Rash Verified 09/12/23 21:30 Antibiotics) PFSH Acute 2 PFSH: Medical History Marijuana dependence daily use Alcohol dependence daily use Elevated blood pressure reading Hepatitis C Per patient Diabetes mellitus type 2 in obese Knee pain, right Chronic neck and back pain Cigarette nicotine dependence Other stimulant abuse with stimulant-induced mood disorder last use meth 08/29/23 Opioid use disorder Psychiatric care Borderline personality disorder Compression fracture of L1 lumbar vertebra Hx of migraines Surgical History History of back surgery H/O knee surgery Family History Other Family history non-contributory Social History Smoking and tobacco/nicotine status: current every day tobacco/nicotine user (half-pack /day) cigarettes Packs smoked per day: 0.5 Years cigarettes smoked: 25 Quit status (tobacco/nicotine): has tried quititng Number of times tried to quit tobacco: 2 Second hand smoke exposure: Yes (Sometimes.) Alcohol intake: former Substance/Drug Use: former Date of last use: 2021 Female Reproductive History: Date of last menstrual period: 08/23/23 Vitals/I&O/Wt Last Vital Signs Temp 98.0 F 09/12/23 21:12 Pulse 62 09/13/23 08:00 Resp 16 09/13/23 08:00 BP 126/89 09/13/23 11:24 Pulse Ox 94 09/13/23 08:00 O2 Del Method Room Air 09/13/23 05:15 O2 Flow Rate 2 09/12/23 23:52 09/12/23 09/13/23 09/13/23 22:59 06:59 14:59 Intake Total 1999 50 / 50 Balance 1999 50 / 50 Weight last 48 hrs Weight 113.398 kg Physical Exam 2 Narrative: General exam is white female, conversant and pleasant. She is able to retain my name at the end of the interview. HEENT atraumatic normocephalic. Oropharynx clear Neck is supple no lymphadenopathy thyromegaly Cardiovascular regular rate and rhythm without murmur Lungs clear Abdomen is soft nontender Extremities no cyanosis clubbing or edema Skin: Some excoriations, skin lesions scattered over lower extremities likely consistent with methamphetamine use Neuro no focal deficits Urinary Catheter Management: Rodriguez: Cath Placed During This Visit: yes Urinary Catheter Date of Insertion: 09/13/23 Urinary Catheter Time of Insertion: 09:33 Data 09/13/23 09:22 09/13/23 09:22 Other Labs: PT and PTT are normal ABG demonstrated a pH of 7.34, pCO2 42, pO2 61 on room air initially. Repeat ABG demonstrates pH 7.41, pCO2 38, pO2 106 Liver function test demonstrates an AST of 70, ALT 65, alk phos 176 Lactic acid 2.9 and 3.5 Albumin 3.4, calcium 8.1 Procalcitonin 0.06 Urinalysis 0-4 reds 0-4 whites Urine drug screen positive for amphetamines benzodiazepines opiates. Alcohol level [address] head and chest x-ray negative which I reviewed EKG which I reviewed demonstrates sinus rhythm, normal axis, and is essentially normal EKG. Hemoglobin A1c is 13.5. Recent TSH was normal. hCG negative Have ordered a hepatitis panel. Apparently she has a history of hepatitis C. Micro: Microbiology 09/13/23 09:22 Blood Culture - Preliminary Blood SPECIMEN COLLECTED 09/13/23 06:48 Blood Culture - Preliminary Blood SPECIMEN COLLECTED A&P Assessment and plan (1) Diabetes mellitus type 2 in obese: Patient presented with markedly elevated blood sugar, at 665. With fluids and some regular insulin it came down to the 180s. Her serum ketones were positive but anion gap only 20, and this quickly self resolved with just fluids and regular insulin. She may have had some component of starvation ketosis with the alcohol drug use and poor oral intake. Either way no evidence of DKA currently. I would recommend a consistent carb diet Sliding scale insulin Initiate metformin tomorrow. 500 mg twice daily. I would like to have a little bit of space between her positive lactic acid before initiating this. Consideration for addition of Januvia Could consider long-acting insulin secondary to the severity of her elevation in A1c. However, she has been admitted for concerns of depression and suicidal ideation. I will need to review this further prior to making this a home recommendation. Will give 20 units of Lantus tonight and daily while in the hospital while determining. Encourage p.o. fluid intake (2) Hypokalemia: Supplement, recheck tomorrow (3) Transaminitis: Recheck tomorrow, check hepatitis panel (4) Abuse, drug or alcohol: Defer to psychiatry Plan History of headaches, continue propranolol History of bright red blood in stool for the last 6 months on review of systems. I discussed with her in detail the need for outpatient follow-up with her primary care provider, and outpatient screening colonoscopy. Multiple other medical problems as outlined by past medical history Thank you for this consultation Will continue to follow along with you Consult Attestations 2 Medical Necessity Statement: As per primary Diagnoses Diabetes mellitus type 2 in obese E11.69; E66.9 Hypokalemia E87.6 Transaminitis R74.01 Abuse, drug or alcohol F19.10 Time Spent (min) 48
[2023-09-13 12:18] LABS: Troponin 5 2HR 7.54 ng/L (0-10); Troponin 5 2HR Delta 0.54 ABS# (0-10)
[2023-09-13 12:32] LABS: Hepatitis A Antibody IgM Non-Reactive (Nonreactive); Hepatitis B Core IgM Non-Reactive (Nonreactive); Hepatitis B Surface Antigen Non-Reactive (Nonreactive); Hepatitis C Virus Antibody Reactive (Nonreactive)
--- NOTE | 2023-09-13 12:53 | ECG_ITS ---
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 Measurements Intervals [place] Rate: 65 P: 51 NV: 149 QRS: 3 QRSD: 90 T: 7 QT: 434 QTc: 453 Interpretive Statements SINUS RHYTHM Compared to ECG 09/13/2023 08:46:29 Sinus bradycardia no longer present Sinus arrhythmia no longer present Electronically Signed On 09-13-2023 17:13:23 CDT by Shyam Lee M.D. [email or web address] [email or web address] [facility] [id number]
--- NOTE | 2023-09-13 13:11 | PC.NURSE ---
pt refused to change for staff, pt not wanting to be admitted to npu. pt 96 hr hold.
--- NOTE | 2023-09-13 15:15 | PC.NURSE ---
Talked with Dr. Davila's nurse at 1515 who stated he requested we cancel troponin 6 hour draws.
[2023-09-13] MEDS: propranolol 20 mg Tablet PO (17:20)
[2023-09-13] MEDS: potassium chloride ER 20 mEq Tablet 40 MEQ PO ×2 (17:30→17:40)
[2023-09-13 17:47] LABS: Glucose Point of Care 284 mg/dL (70-110)
[2023-09-13] MEDS: insulin lispro 100 unit/1 mL SUBCUT ×2 (17:57→20:24)
[2023-09-13 20:08] LABS: Glucose Point of Care 280 mg/dL (70-110)
[2023-09-13] MEDS: insulin glargine 100 units/1 mL 20 UNIT SUBCUT (20:25)
[2023-09-14 04:00] VITALS: BP 127/74; PULSE 63; RESP 13; TEMP 36.8; O2SAT 96
[2023-09-14 07:56] VITALS: BP 131/79; PULSE 73; RESP 16; TEMP 36.6; O2SAT 97
[2023-09-14 08:01] LABS: Glucose Point of Care 254 mg/dL (70-110)
--- NOTE | 2023-09-14 08:17 | P.PN_ITS ---
Subjective 2 Subjective: Feeling okay. Denies any complaints. Willing to take oral medication for diabetes. I discussed with her that she may need insulin products, but we can try oral medication first. Medications: Reviewed: Yes Vitals/I&O/Wt Last Vital Signs Temp 97.9 F 09/14/23 07:56 Pulse 73 09/14/23 07:56 Resp 16 09/14/23 07:56 BP 131/79 09/14/23 07:56 Pulse Ox 97 09/14/23 07:56 O2 Del Method Room Air 09/14/23 04:00 O2 Flow Rate 2 09/12/23 23:52 Weight last 48 hrs Weight 113.398 kg Physical Exam 2 Narrative: General exam is white female, no distress Neck is supple no lymphadenopathy thyromegaly Cardiovascular regular rate and rhythm without murmur Lungs clear Abdomen is soft nontender Extremities no cyanosis clubbing or edema Urinary Catheter Management: Rodriguez: Cath Placed During This Visit: yes Urinary Catheter Date of Insertion: 09/13/23 Urinary Catheter Time of Insertion: 09:33 Data 09/13/23 09:22 09/13/23 09:22 Micro: Microbiology 09/13/23 06:48 Blood Culture - Preliminary Blood NEGATIVE TO DATE 09/13/23 09:22 Blood Culture - Preliminary Blood SPECIMEN COLLECTED A&P Assessment and plan (1) Diabetes mellitus type 2 in obese: Patient presented with markedly elevated blood sugar, at 665. With fluids and some regular insulin it came down to the 180s. Her serum ketones were positive but anion gap only 20, and this quickly self resolved with just fluids and regular insulin. She may have had some component of starvation ketosis with the alcohol drug use and poor oral intake. Either way no evidence of DKA currently. Continue diabetic diet. Consult education for instruction to patient regarding this. Sliding scale insulin Initiate metformin and Januvmendoza today Could consider long-acting insulin secondary to the severity of her elevation in A1c. However, she has been admitted for concerns of depression and suicidal ideation. I will need to review this further prior to making this a home recommendation. Continue Lantus 20 units at bedtime while in the hospital Encourage p.o. fluid intake (2) Hypokalemia: Supplemented, recheck today pending (3) Transaminitis: Recheck tomorrow, check hepatitis panel (4) Abuse, drug or alcohol: Defer to psychiatry Plan History of headaches, continue propranolol History of bright red blood in stool for the last 6 months on review of systems. I discussed with her in detail the need for outpatient follow-up with her primary care provider, and outpatient screening colonoscopy. Multiple other medical problems as outlined by past medical history Thank you for this consultation Will continue to follow along with you Attestations 2 Medical Necessity Statement*: As per primary Diagnoses Diabetes mellitus type 2 in obese E11.69; E66.9 Hypokalemia E87.6 Transaminitis R74.01 Abuse, drug or alcohol F19.10 Time Spent (min) 24
[2023-09-14] MEDS: folic acid 1 mg Tablet PO (08:50)
[2023-09-14] MEDS: propranolol 20 mg Tablet PO ×2 (08:50→17:30)
[2023-09-14] MEDS: metformin 500 mg Tablet PO ×2 (08:50→17:30)
[2023-09-14] MEDS: multivitamin therapeutic Tablet 1 TAB PO (08:50)
[2023-09-14] MEDS: sitagliptin 100 mg Tablet 50 MG PO (08:51)
[2023-09-14] MEDS: thiamine 100 mg Tablet PO (08:51)
[2023-09-14] MEDS: insulin lispro 100 unit/1 mL SUBCUT ×4 (08:51→20:39)
[2023-09-14 11:55] LABS: Glucose Point of Care 193 mg/dL (70-110)
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
[2023-09-14 12:00] VITALS: BP 154/96; PULSE 76; RESP 17; TEMP 36.6; O2SAT 96
[2023-09-14] MEDS: nicotine 21 mg Patch 1 PATCH TRANSDERMA (12:06)
[2023-09-14 14:16] LABS: Alanine Aminotransferase 56 U/L (0-33); Albumin Level 3.1 g/dL (3.5-5.2); Alkaline Phosphatase 161 U/L (35-105); Anion Gap 14.7 (5-19); Aspartate Amino Transferase 65 U/L (0-32); Blood Urea Nitrogen 7 mg/dL (6-20); Calcium 8.5 mg/dL (8.5-10.5); Carbon Dioxide 24 mmol/L (22-29); Chloride 105 mmol/L (98-107); Creatinine Clr Calc Pharmacy 179.6401; Globulin 2.7 g/dL (1.3-4.6); Glomerular Filtration Rate 132.8 mL/min (90-130); Glucose 195 mg/dL (65-115); Magnesium 1.6 mg/dL (1.7-2.3); Osmolality Calculated 293 mOsm/kg (285-295); Potassium 3.7 mmol/L (3.5-5.1); Sodium 140 mmol/L (136-145); Total Bilirubin 0.2 mg/dL (0.15-1.2); Total Protein 5.8 g/dL (6.6-8.7)
[2023-09-14 16:00] VITALS: BP 124/77; PULSE 65; RESP 16; TEMP 36.6; O2SAT 99
[2023-09-14 17:08] LABS: Glucose Point of Care 196 mg/dL (70-110)
[2023-09-14 20:00] VITALS: BP 145/96; PULSE 69; RESP 14; TEMP 36.9; O2SAT 96
[2023-09-14] MEDS: insulin glargine 100 units/1 mL 20 UNIT SUBCUT (20:38)
[2023-09-14] MEDS: hyDROXYzine 25 mg Capsule 50 MG PO (20:40)
[2023-09-14] MEDS: ibuprofen 600 mg Tablet PO (20:40)
[2023-09-14 23:59] LABS: Glucose Point of Care 254 mg/dL (70-110)
[2023-09-15] VITALS: RESP 16
--- NOTE | 2023-09-15 00:53 | PC.NURSE ---
Pt not scoring on CIWA Scale, pt sleeping soundly on left side at present time, respirations noted at 16.
[2023-09-15 04:00] VITALS: BP 143/83; PULSE 63; RESP 13; TEMP 36.5; O2SAT 96
[2023-09-15 07:55] LABS: Glucose Point of Care 199 mg/dL (70-110)
[2023-09-15 08:00] VITALS: BP 151/102; PULSE 96; RESP 17; O2SAT 98
[2023-09-15] MEDS: multivitamin therapeutic Tablet 1 TAB PO (08:02)
[2023-09-15] MEDS: thiamine 100 mg Tablet PO (08:03)
[2023-09-15] MEDS: propranolol 20 mg Tablet PO ×2 (08:03→17:42)
[2023-09-15] MEDS: magnesium oxide 400 mg tablet PO ×2 (08:03→17:41)
[2023-09-15] MEDS: folic acid 1 mg Tablet PO (08:03)
[2023-09-15] MEDS: sitagliptin 100 mg Tablet 50 MG PO (08:03)
[2023-09-15] MEDS: metformin 500 mg Tablet PO ×2 (08:04→17:42)
[2023-09-15] MEDS: insulin lispro 100 unit/1 mL SUBCUT ×4 (08:04→20:46)
[2023-09-15] MEDS: nicotine 21 mg Patch 1 PATCH TRANSDERMA (08:08)
--- NOTE | 2023-09-15 10:00 | W.PM.EVENTAC ---
Event Note Event Note: Will sign off at this point. Discharge medications of Januvia and metformin have been written for. She will need close follow-up as an outpatient with her primary care provider.
[2023-09-15] MEDS: ibuprofen 600 mg Tablet PO (10:11)
--- NOTE | 2023-09-15 11:28 | PC.NURSE ---
This RN contacted Dr. Davila about patient having occasion high blood pressure readings. He did remove ibuprofen from her med orders. No other new orders at this time.
[2023-09-15 12:00] VITALS: BP 136/81; PULSE 71; RESP 16; TEMP 36.8; O2SAT 97
[2023-09-15 12:07] LABS: Glucose Point of Care 204 mg/dL (70-110)
[2023-09-15 14:50] LABS: HEP C RNA Viral Load Quant 6.79 Log IU/mL (NOT DETECTED); HEP C RNA Viral Load Quant 6220000 IU/mL (NOT DETECTED)
[2023-09-15 16:00] VITALS: BP 138/77; PULSE 69; RESP 16; TEMP 36.9; O2SAT 95
[2023-09-15 17:29] LABS: Glucose Point of Care 254 mg/dL (70-110)
--- NOTE | 2023-09-15 18:17 | P.NPUPN_ITS ---
Subjective NPU 2 Subjective: Patient presented today continuing to report that she is feeling better and that 2 days ago represented a moment of poor impulse control while intoxicated. She denies having any major concerns at this time and reports that in general she had been doing better. She was more open today to discuss her addiction but downplayed its significance reporting that she has had much less problematic behavior recently that in previous times that she is presented to the neuropsychiatric unit. She continues to deny any need for any changes and we discussed the possibility of discharge prior to the end of the 96-hour hold. Mental Status Exam 2 MSE Comments: This is an obese versus morbidly obese white female in hospital scrubs with adequate grooming and eye contact. No abnormal movements except for mild psychomotor retardation. Cooperative with exam in mild distress. Speech was slightly decreased rate and volume. Mood described as better than yesterday, affect slightly subdued but mostly euthymic. Thought process organized. Thought content: Patient denied current suicidal or homicidal ideation but she admitted to making suicidal statements with a history of suicide attempts, there were no delusions reported or noted, she denied any auditory or visual hallucinations. Attention and concentration appeared intact and memory appeared reliable but none were formally tested. She is alert and oriented x3. Insight and judgment appeared limited, impulse control is impaired. Vitals/I&O/Wt Last Vital Signs Temp 98.1 F 09/15/23 19:59 Pulse 88 09/15/23 19:59 Resp 18 09/15/23 19:59 BP 146/80 09/15/23 19:59 Pulse Ox 97 09/15/23 19:59 O2 Del Method Room Air 09/15/23 19:59 O2 Flow Rate 2 09/12/23 23:52 Physical Exam 2 Urinary Catheter Management: Rodriguez: Cath Placed During This Visit: yes Urinary Catheter Date of Insertion: 09/13/23 Urinary Catheter Time of Insertion: 09:33 Data NPU 09/13/23 09:22 09/14/23 13:50 Micro: Microbiology 09/12/23 22:17 Urine Culture - Preliminary Urine,Clean Catch Coag positive Staphylococcus Microbiology 09/12/23 22:17 Urine,Clean Catch Urine Culture - Preliminary Coag positive Staphylococcus A&P Assessment and plan (1) Lumbar stenosis with neurogenic claudication: (2) Polysubstance abuse: (3) Diabetes mellitus type 2 in obese: (4) History of back surgery: (5) Opioid use disorder: (6) Marijuana use, episodic: (7) Other stimulant abuse with stimulant-induced mood disorder: (8) Cigarette nicotine dependence: Qualifiers: Substance use status: uncomplicated Qualified Code(s): F17.210 - Nicotine dependence, cigarettes, uncomplicated (9) Alcohol dependence: Qualifiers: Substance use status: uncomplicated Qualified Code(s): F10.20 - Alcohol dependence, uncomplicated (10) Borderline personality disorder: (11) Sexual masochism: (12) Chronic neck and back pain: Plan This is a 48-year-old white female with a long history of mental health and addiction issues admitted after suicidal ideation, with history of past suicide attempts with reports of active addiction issues including opiates, methamphetamine along with borderline personality disorder. 1. Continue current medications 2. Encourage individual, group and milieu therapy. 3. Continue every 15 minute checks for safety. 4. Evaluate for safety for discharge given 96-hour hold 5. Encourage sober living treatment after discharge at the highest level of care to which she is willing to commit. Involuntary Hold Information 2 96 Hour Hold: 96 Hour Involuntary Admission: Yes 96 Hour Hold Ending Date: 09/19/23 96 Hour Hold Ending Time: 12:15 Attestations NPU 2 Medical Necessity Statement*: Inpatient psychiatric hospitalization is medically necessary and the clinically appropriate intervention at this time. We will monitor medications and make changes as indicated. Likely length of stay 1-3 days. Coding Level of Care Code Acute Code for g Fwd Diagnoses Lumbar stenosis with neurogenic claudication M48.062 Polysubstance abuse F19.10 Diabetes mellitus type 2 in obese E11.69; E66.9 History of back surgery Z98.890 Opioid use disorder F11.90 Marijuana use, episodic F12.90 Other stimulant abuse with stimulant-induced mood disorder F15.14 Cigarette nicotine dependence without complication F17.210 Substance use status: uncomplicated Uncomplicated alcohol dependence F10.20 Substance use status: uncomplicated Borderline personality disorder F60.3 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
[2023-09-15 19:59] VITALS: BP 146/80; PULSE 88; RESP 18; TEMP 36.7; O2SAT 97
[2023-09-15 20:41] LABS: Glucose Point of Care 289 mg/dL (70-110)
[2023-09-15] MEDS: acetaminophen 325 mg Tablet 650 MG PO (20:45)
[2023-09-15] MEDS: trazodone 50 mg Tablet PO (20:46)
[2023-09-15] MEDS: insulin glargine 100 units/1 mL 20 UNIT SUBCUT (20:46)
[2023-09-16 06:00] VITALS: BP 135/74; PULSE 73; RESP 16; TEMP 36.8; O2SAT 97
[2023-09-16 07:42] LABS: Glucose Point of Care 138 mg/dL (70-110)
[2023-09-16] MEDS: multivitamin therapeutic Tablet 1 TAB PO (08:15)
[2023-09-16] MEDS: metformin 500 mg Tablet PO ×2 (08:15→17:09)
[2023-09-16] MEDS: sitagliptin 100 mg Tablet 50 MG PO (08:15)
[2023-09-16] MEDS: folic acid 1 mg Tablet PO (08:16)
[2023-09-16] MEDS: magnesium oxide 400 mg tablet PO ×2 (08:16→17:09)
[2023-09-16] MEDS: thiamine 100 mg Tablet PO (08:16)
[2023-09-16] MEDS: propranolol 20 mg Tablet PO ×2 (08:16→17:09)
[2023-09-16] MEDS: nicotine 21 mg Patch 1 PATCH TRANSDERMA (08:16)
[2023-09-16 11:33] LABS: Glucose Point of Care 217 mg/dL (70-110)
[2023-09-16] MEDS: insulin lispro 100 unit/1 mL SUBCUT ×3 (12:15→20:30)
[2023-09-16] MEDS: acetaminophen 325 mg Tablet 650 MG PO ×3 (12:43→20:28)
[2023-09-16 14:00] VITALS: BP 106/71; PULSE 85; RESP 16; TEMP 36.8; O2SAT 93
[2023-09-16 16:57] LABS: Glucose Point of Care 306 mg/dL (70-110)
--- NOTE | 2023-09-16 18:24 | P.NPUPN_ITS ---
Subjective NPU 2 Subjective: Patient presented today reporting that she is doing fine. She endorsed initially to staff and then to this feature writer that her mother was critical and in the ICU in [facility]. This feature writer requested that the nursing staff verify and ultimately she revealed that she was lying in the attempt to get discharged today. We discussed the likelihood of discharge in the next 48 hours and she denied any side effects to her medications. Mental Status Exam 2 MSE Comments: This is an obese versus morbidly obese white female in hospital scrubs with adequate grooming and eye contact. No abnormal movements except for mild psychomotor retardation. Cooperative with exam in mild distress. Speech was slightly decreased rate and volume. Mood described as better than yesterday, affect slightly subdued but mostly euthymic. Thought process organized. Thought content: Patient denied current suicidal or homicidal ideation but she admitted to making suicidal statements with a history of suicide attempts, there were no delusions reported or noted, she denied any auditory or visual hallucinations. Attention and concentration appeared intact and memory appeared reliable but none were formally tested. She is alert and oriented x3. Insight and judgment appeared limited, impulse control is impaired. Vitals/I&O/Wt Last Vital Signs Temp 98.2 F 09/16/23 14:00 Pulse 85 09/16/23 14:00 Resp 16 09/16/23 14:00 BP 106/71 09/16/23 14:00 Pulse Ox 93 09/16/23 14:00 O2 Del Method Room Air 09/16/23 14:00 O2 Flow Rate 2 09/12/23 23:52 Physical Exam 2 Urinary Catheter Management: Rodriguez: Cath Placed During This Visit: yes Urinary Catheter Date of Insertion: 09/13/23 Urinary Catheter Time of Insertion: 09:33 Data NPU 09/13/23 09:22 09/14/23 13:50 Micro: Microbiology 09/12/23 22:17 Urine Culture - Final Urine,Clean Catch Methicillin Resis Staph Aureus Microbiology 09/12/23 22:17 Urine,Clean Catch Urine Culture - Final Methicillin Resis Staph Aureus A&P Assessment and plan (1) Lumbar stenosis with neurogenic claudication: (2) Polysubstance abuse: (3) Diabetes mellitus type 2 in obese: (4) History of back surgery: (5) Opioid use disorder: (6) Marijuana use, episodic: (7) Other stimulant abuse with stimulant-induced mood disorder: (8) Cigarette nicotine dependence: Qualifiers: Substance use status: uncomplicated Qualified Code(s): F17.210 - Nicotine dependence, cigarettes, uncomplicated (9) Alcohol dependence: Qualifiers: Substance use status: uncomplicated Qualified Code(s): F10.20 - Alcohol dependence, uncomplicated (10) Borderline personality disorder: (11) Sexual masochism: (12) Chronic neck and back pain: Plan This is a 48-year-old white female with a long history of mental health and addiction issues admitted after suicidal ideation, with history of past suicide attempts with reports of active addiction issues including opiates, methamphetamine along with borderline personality disorder. 1. Continue current medications 2. Encourage individual, group and milieu therapy. 3. Continue every 15 minute checks for safety. 4. Evaluate for safety for discharge given 96-hour hold 5. Encourage sober living treatment after discharge at the highest level of care to which she is willing to commit. 6. Likely discharge in the next 48 hours. Patient Allied that her mother was in the ICU in an attempt to get discharged today with her significant other lying in saying he was her brother is from [place]. Involuntary Hold Information 2 96 Hour Hold: 96 Hour Involuntary Admission: Yes 96 Hour Hold Ending Date: 09/19/23 96 Hour Hold Ending Time: 12:15 Attestations NPU 2 Medical Necessity Statement*: Inpatient psychiatric hospitalization is medically necessary and the clinically appropriate intervention at this time. We will monitor medications and make changes as indicated. Likely length of stay 1-3 days. Coding Level of Care Code Acute Code for [facility] Fwd Diagnoses Lumbar stenosis with neurogenic claudication M48.062 Polysubstance abuse F19.10 Diabetes mellitus type 2 in obese E11.69; E66.9 History of back surgery Z98.890 Opioid use disorder F11.90 Marijuana use, episodic F12.90 Other stimulant abuse with stimulant-induced mood disorder F15.14 Cigarette nicotine dependence without complication F17.210 Substance use status: uncomplicated Uncomplicated alcohol dependence F10.20 Substance use status: uncomplicated Borderline personality disorder F60.3 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
--- NOTE | 2023-09-16 18:41 | PC.NURSE ---
pt confessed that earlier story that her mother was in [facility] in icu on a ventilator was a lie in order to get out of the hospital today. pt confessed when pressed for hospital name and pt name. pt states she is very sorry. but she just really wanted to go home. pt also stated that the man that visited her today was really her life partner.
[2023-09-16 20:17] LABS: Glucose Point of Care 240 mg/dL (70-110)
[2023-09-16] MEDS: trazodone 50 mg Tablet PO (20:28)
[2023-09-16] MEDS: insulin glargine 100 units/1 mL 20 UNIT SUBCUT (20:30)
[2023-09-16 22:00] VITALS: BP 147/87; PULSE 73; RESP 17; TEMP 36.6; O2SAT 98
[2023-09-17] MEDS: ibuprofen 600 mg Tablet PO ×2 (03:11→13:19)
[2023-09-17 06:00] VITALS: RESP 16
[2023-09-17] MEDS: metformin 500 mg Tablet PO ×2 (08:23→18:05)
[2023-09-17] MEDS: nicotine 21 mg Patch 1 PATCH TRANSDERMA (08:23)
[2023-09-17] MEDS: sitagliptin 100 mg Tablet 50 MG PO (08:23)
[2023-09-17] MEDS: folic acid 1 mg Tablet PO (08:23)
[2023-09-17] MEDS: insulin lispro 100 unit/1 mL SUBCUT ×4 (08:23→20:18)
[2023-09-17] MEDS: magnesium oxide 400 mg tablet PO ×2 (08:24→18:05)
[2023-09-17] MEDS: multivitamin therapeutic Tablet 1 TAB PO (08:24)
[2023-09-17] MEDS: propranolol 20 mg Tablet PO ×2 (08:24→18:05)
[2023-09-17] MEDS: thiamine 100 mg Tablet PO (08:24)
[2023-09-17 12:15] LABS: Glucose Point of Care 191 mg/dL (70-110)
[2023-09-17 14:00] VITALS: BP 141/88; PULSE 88; RESP 16; TEMP 36.8; O2SAT 95
[2023-09-17] MEDS: acetaminophen 325 mg Tablet 650 MG PO (16:26)
[2023-09-17] MEDS: diphenhydrAMINE 50 mg/mL SDV 1mL IM (17:05)
[2023-09-17] MEDS: LORazepam 2 mg/mL INJ 1 mL IM (17:05)
--- NOTE | 2023-09-17 17:16 | PC.NURSE ---
Patient yelling in room, I fucking hate this place. The doctor won't see me, He has a thing against white people. Patient said that she has nothing to live for, that nobody cares about her. Patient went on to say that all she did was say one thing wrong and now she has been in here for almost a week. Patient open-faced slapped the wall next to her mirror multiple times, through her blankets into the floor, yelled I DON'T GIVE A FUCK! Patient also fixated on pain. Said that she received a prescription for pain pills and patient is upset because the doctor is refusing to give me my pain pills and antidepressants. This nurse and MARIAN Villatoro administered B52 Im into patient's left and right deltoid muscles. Patient tolerated well. Patient still tearful. Patient in room with staff present.
--- NOTE | 2023-09-17 17:18 | PC.NURSE ---
pt in room yelling, crying rocking back and forth, stating she is wanting to leave and go home. states it isnt fair all she did was make one statement and now she has been in here for a week and she wants to go home.
[2023-09-17 17:36] LABS: Glucose Point of Care 288 mg/dL (70-110)
[2023-09-17] MEDS: duloxetine 60 mg Capsule PO (18:05)
--- NOTE | 2023-09-17 18:24 | P.NPUPN_ITS ---
Subjective NPU 2 Subjective: Patient presented today reporting that things are going fine. She continues to be very upset that she has not been discharged. Her significant other came again today this time not lying about being her brother was also expressing being upset that she is being held as they both report that she was just saying stupid things under the influence. Discussed the likelihood of discharge tomorrow and she denied any side effects to the medication. Mental Status Exam 2 MSE Comments: This is an obese versus morbidly obese white female in hospital scrubs with adequate grooming and eye contact. No abnormal movements except for mild psychomotor retardation. Cooperative with exam in mild distress. Speech was slightly decreased rate and volume. Mood described as better than yesterday, affect slightly subdued but mostly euthymic except for surrounding not being discharged. Thought process organized. Thought content: Patient denied current suicidal or homicidal ideation but she admitted to making suicidal statements with a history of suicide attempts, there were no delusions reported or noted, she denied any auditory or visual hallucinations. Attention and concentration appeared intact and memory appeared reliable but none were formally tested. She is alert and oriented x3. Insight and judgment appeared limited, impulse control is impaired. Vitals/I&O/Wt Last Vital Signs Temp 98.3 F 09/17/23 14:00 Pulse 88 09/17/23 14:00 Resp 16 09/17/23 14:00 BP 141/88 09/17/23 14:00 Pulse Ox 95 09/17/23 14:00 O2 Del Method Room Air 09/17/23 14:00 O2 Flow Rate 2 09/12/23 23:52 Weight last 48 hrs Weight 114.305 kg Physical Exam 2 Urinary Catheter Management: Rodriguez: Cath Placed During This Visit: yes Urinary Catheter Date of Insertion: 09/13/23 Urinary Catheter Time of Insertion: 09:33 Data NPU 09/13/23 09:22 09/14/23 13:50 Micro: Microbiology 09/13/23 06:48 Blood Culture - Final Blood NO GROWTH AFTER 5 DAYS Microbiology 09/13/23 06:48 Blood Blood Culture - Final NO GROWTH AFTER 5 DAYS A&P Assessment and plan (1) Lumbar stenosis with neurogenic claudication: (2) Polysubstance abuse: (3) Diabetes mellitus type 2 in obese: (4) History of back surgery: (5) Opioid use disorder: (6) Marijuana use, episodic: (7) Other stimulant abuse with stimulant-induced mood disorder: (8) Cigarette nicotine dependence: Qualifiers: Substance use status: uncomplicated Qualified Code(s): F17.210 - Nicotine dependence, cigarettes, uncomplicated (9) Alcohol dependence: Qualifiers: Substance use status: uncomplicated Qualified Code(s): F10.20 - Alcohol dependence, uncomplicated (10) Borderline personality disorder: (11) Sexual masochism: (12) Chronic neck and back pain: Plan This is a 48-year-old white female with a long history of mental health and addiction issues admitted after suicidal ideation, with history of past suicide attempts with reports of active addiction issues including opiates, methamphetamine along with borderline personality disorder. 1. Continue current medications. Restart Cymbalta. 2. Encourage individual, group and milieu therapy. 3. Continue every 15 minute checks for safety. 4. Evaluate for safety for discharge given 96-hour hold 5. Encourage sober living treatment after discharge at the highest level of care to which she is willing to commit. 6. Likely discharge tomorrow. Patient Allied that her mother was in the ICU in an attempt to get discharged today with her significant other lying in saying he was her brother is from [place]. Involuntary Hold Information 2 96 Hour Hold: 96 Hour Involuntary Admission: Yes 96 Hour Hold Ending Date: 09/19/23 96 Hour Hold Ending Time: 12:15 Attestations U 2 Medical Necessity Statement*: Inpatient psychiatric hospitalization is medically necessary and the clinically appropriate intervention at this time. We will monitor medications and make changes as indicated. Likely length of stay 1-3 days. Coding Level of Care Code Acute Code for [facility] Diagnoses Lumbar stenosis with neurogenic claudication M48.062 Polysubstance abuse F19.10 Diabetes mellitus type 2 in obese E11.69; E66.9 History of back surgery Z98.890 Opioid use disorder F11.90 Marijuana use, episodic F12.90 Other stimulant abuse with stimulant-induced mood disorder F15.14 Cigarette nicotine dependence without complication F17.210 Substance use status: uncomplicated Uncomplicated alcohol dependence F10.20 Substance use status: uncomplicated Borderline personality disorder F60.3 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
[2023-09-17] MEDS: haloperidol inj 5 mg/mL INJ 1 mL IM (18:37)
[2023-09-17 19:51] LABS: Glucose Point of Care 238 mg/dL (70-110)
[2023-09-17 20:03] VITALS: BP 122/77; PULSE 88; RESP 16; TEMP 36.9; O2SAT 97
[2023-09-17] MEDS: insulin glargine 100 units/1 mL 20 UNIT SUBCUT (20:18)
[2023-09-18 06:00] VITALS: BP 119/77; PULSE 87; RESP 17; TEMP 36.8; O2SAT 95
[2023-09-18] MEDS: ibuprofen 600 mg Tablet PO ×2 (06:45→12:30)
[2023-09-18 08:04] LABS: Glucose Point of Care 246 mg/dL (70-110)
[2023-09-18] MEDS: thiamine 100 mg Tablet PO (08:07)
[2023-09-18] MEDS: sitagliptin 100 mg Tablet 50 MG PO (08:07)
[2023-09-18] MEDS: metformin 500 mg Tablet PO (08:07)
[2023-09-18] MEDS: folic acid 1 mg Tablet PO (08:07)
[2023-09-18] MEDS: nicotine 21 mg Patch 1 PATCH TRANSDERMA (08:07)
[2023-09-18] MEDS: duloxetine 60 mg Capsule PO (08:07)
[2023-09-18] MEDS: propranolol 20 mg Tablet PO (08:07)
[2023-09-18] MEDS: insulin lispro 100 unit/1 mL SUBCUT ×2 (08:07→12:07)
[2023-09-18] MEDS: multivitamin therapeutic Tablet 1 TAB PO (08:07)
[2023-09-18] MEDS: magnesium oxide 400 mg tablet PO (08:07)
[2023-09-18] MEDS: hyDROXYzine 25 mg Capsule 50 MG PO (09:13)
[2023-09-18] MEDS: neomycin-poly-bacitracin oint 28 gm 1 APPLIC TOPICAL (11:10)
[2023-09-18 12:03] LABS: Glucose Point of Care 162 mg/dL (70-110)
[2023-09-18 13:14] VITALS: BP 119/77; PULSE 87; RESP 17; TEMP 36.8; O2SAT 95
--- NOTE | 2023-09-18 13:45 | PC.NURSE ---
THIS RN NOTIFIED DR. TILLMAN THAT PT DID HAVE A GLUCOMETER BUT IT WAS HER FATHER'S WHO RECENTLY . PT STATES SHE HAS NO TEST STIPS TO THE DEVICE AND DOES NOT KNOW WHAT STRIPS ARE NEEDED. 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 DR. TILLMAN STATES HE WILL ORDER PT A GLUCOMETER WITH TESTING STRIPS. PT WAS EDUCATED ON ALL THE ABOVE. SUPPORT VOICED.
--- NOTE | 2023-09-18 14:25 | P.NPUDS_ITS ---
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 Permanent problem details: last use meth 08/29/23 (6) Cigarette nicotine dependence: Status: Chronic Qualifiers: Substance use status: uncomplicated Qualified Code(s): F17.210 - Nicotine dependence, cigarettes, uncomplicated (7) Alcohol dependence: Status: Acute Qualifiers: Substance use status: uncomplicated Qualified Code(s): F10.20 - Alcohol dependence, uncomplicated Permanent problem details: daily use (8) Borderline personality disorder: Status: Chronic (9) Chronic neck and back pain: Status: Acute Reason for Visit Reason for Visit: DEPRESSION Involuntary Hold Information 96 Hour Hold: 96 Hour Involuntary Admission: Yes 96 Hour Hold Ending Date: 09/19/23 96 Hour Hold Ending Time: 12:15 Mental Status Exam MSE Comments: This is an obese versus morbidly obese white female in hospital scrubs with adequate grooming and eye contact. No abnormal movements except for mild psychomotor retardation. Cooperative with exam in mild distress. Speech was slightly decreased rate and volume. Mood described as better than yesterday, affect slightly subdued but mostly euthymic except for surrounding not being discharged. Thought process organized. Thought content: Patient denied current suicidal or homicidal ideation but she admitted to making suicidal statements with a history of suicide attempts, there were no delusions reported or noted, she denied any auditory or visual hallucinations. Attention and concentration appeared intact and memory appeared reliable but none were formally tested. She is alert and oriented x3. Insight and judgment appeared limited, impulse control is impaired. Physical Exam Urinary Catheter Management: Rodriguez: Cath Placed During This Visit: yes Urinary Catheter Date of Insertion: 09/13/23 Urinary Catheter Time of Insertion: 09:33 Discharge Data Studies Completed and Pending: Completed Studies During Hospitalization Category Date Time Status CT head wo con* 7 [id number] Stat Cat Scan 09/13/23 07:01 Completed XR chest 1V avelino ble [id number] Stat Exams 09/13/23 06:46 Completed Radiology Impressions Chest X-Ray 09/13/23 06:46 IMPRESSION: No acute findings. Head CT 09/13/23 07:01 IMPRESSION: No acute intracranial abnormality. Laboratory Results WBC 6.18 10^3/uL (3.2 9-11.43) 09/13/23 09: RBC 4.41 10^6/uL (3.8 5-5.65) 09/13/23 09:22 Hgb 11.70 g/dL (11.27 -16.99) 09/13/23 09:22 Hct 38.1 % (36-47) 09/13/23 09: MCV 86.4 fl (85-98) 09/13/23 09:22 MCH 26.5 pg (27-33) L 09/13/23 09: MCHC 30.7 g/dL (30-55) 09/13/23 09: RDW 17.0 % (12.1-15.1 ) H 09/13/23 09:22 Plt Count 208 10^3/cmm (157 -399) 09/13/23 09:22 MPV 10.2 fL (7.4-10.4 ) 09/13/23 09:22 Neut % (Auto) 51.9 % 09/13/23 09:22 Lymph % (Auto) 37.2 % 09/13/23 09:22 [place] % (Auto) 7.9 % 09/13/23 09: Eos % (Auto) 2.1 % 09/13/23 09: Baso % (Auto) 0.6 % 09/13/23 09:22 Neut # (Auto) 3.20 10^3/uL (1.8 -7.7) 09/13/23 09: Lymph # (Auto) 2.3 10^3/uL (0.8- 4.8) 09/13/23 09:22 [place] # (Auto) 0.5 10^3/uL (0.2- 0.9) 09/13/23 09:22 Eos # (Auto) 0.1 10^3/uL (0.0- 0.8) 09/13/23 09:22 Baso # (Auto) 0.0 10^3/uL (0.0- 0.1) 09/13/23 09: Nucleated RBC % (a uto) 0 % 09/13/23 09: Nucleated RBCs # 0.0 /100WBC 09/13/23 09:22 PT 13.30 SECONDS (12 .1-14.9) 09/13/23 09:22 INR 0.98 (0.8-1.2) 09/13/23 09:22 APTT 24.6 SECONDS (23. 9-36.7) 09/13/23 09:22 Specimen Type Arterial 09/13/23 06:37 Sample Site Radial, left 09/13/23 06:37 ABG pH 7.41 (7.35-7.45) 09/13/23 06:37 ABG pCO2 38.1 mmHg (35-45) 09/13/23 06:37 ABG pO2 106.0 mmHg (80.0- 100.0) H 09/13/23 06:37 ABG HCO3 24.3 mmol/L (22-2 6) 09/13/23 06:37 ABG O2 Saturation 98.7 09/13/23 06:37 ABG Base Excess -0.1 mmol/L (-2.0 -2.0) 09/13/23 06:37 David Test Pos 09/13/23 06:37 A-a O2 Gradient 0.0 mmHg (5-10) L 09/13/23 06:37 Hematocrit 36.3 % (37-47) L 09/13/23 06:37 Hgb O2 Saturation 96.9 % (95-100) 09/13/23 06:37 Carboxyhemoglobin 1.6 %THgb (0.4-20 .1) 09/13/23 06:37 Methemoglobin 0.3 % (0.4-1.5) L 09/13/23 06:37 Total Hemoglobin 11.8 g/dL (12-16) L 09/13/23 06:37 Sodium 139.0 mmol/L (131 -143) 09/13/23 06:37 Potassium 4.0 mmol/L (3.5-5 .0) 09/13/23 06:37 Glucose 302.0 mg/dL (70-1 15) H 09/13/23 06:37 Ionized Calcium 1.1 mmol/L (1.1-1 .4) 09/13/23 06:37 O2 Delivery Device Nc 09/13/23 06:37 O2 Liters/Min 2.0 % 09/13/23 06:37 Heel Seat Flap Stapler ID [id number] 09/13/23 06:37 Sodium 140 mmol/L (136-1 45) 09/14/23 13:50 Potassium 3.7 mmol/L (3.5-5 .1) 09/14/23 13:50 Chloride 105 mmol/L (98-10 7) 09/14/23 13:50 Carbon Dioxide 24 mmol/L (22-29) 09/14/23 13:50 Anion Gap 14.7 (5-19) 09/14/23 13:50 BUN 7 mg/dL (6-20) 09/14/23 13:50 Creatinine 0.5 mg/dL (0.5-0. 9) 09/14/23 13:50 GFR Calculation 132.8 mL/min (90- 130) H 09/14/23 13:50 Glucose 195 mg/dL (65-115 ) H 09/14/23 13:50 POC Glucose 162 mg/dL (70-110 ) H 09/18/23 12:00 Estimat Average Gl ucose 341 09/12/23 21:37 Hemoglobin A1c 13.5 % (4.0-6.0) H 09/12/23 21:37 Calculated Osmolal ity 293 mOsm/kg (285- 295) 09/14/23 13:50 Lactic Acid 2.9 mmol/L (0.5-2 .2) H 09/12/23 21:37 Lactic Acid (Sepsi s) 3.5 mmol/L (0.5-2 .2) H 09/13/23 00:39 Calcium 8.5 mg/dL (8.5-10 .5) 09/14/23 13:50 Magnesium 1.6 mg/dL (1.7-2. 3) L 09/14/23 13:50 Total Bilirubin 0.2 mg/dL (0.15-1 .2) 09/14/23 13:50 AST 65 U/L (0-32) H 09/14/23 13:50 ALT 56 U/L (0-33) H 09/14/23 13:50 Alkaline Phosphata se 161 U/L (35-105) H 09/14/23 13:50 Ammonia 23 umol/L (11-51) 09/13/23 09:22 Troponin T Baselin e 7 ng/L (0-10) 09/13/23 09:22 Troponin T 120 Min teller 7.54 ng/L (0-10) 09/13/23 11:51 Delta Troponin T 0.54 ABS# (0-10) 09/13/23 11:51 Total Protein 5.8 g/dL (6.6-8.7 ) L 09/14/23 13:50 Albumin 3.1 g/dL (3.5-5.2 ) L 09/14/23 13:50 Globulin 2.7 g/dL (1.3-4.6 ) 09/14/23 13:50 Procalcitonin 0.06 ng/mL (0-0.5 ) 09/13/23 09:22 TSH 0.92 uIU/mL (0.27 -4.20) 09/12/23 21:37 HCG, Qual Negative (Negati ve) 09/12/23 22:17 Urine Color Yellow (Yellow) 09/12/23 22:17 Urine Appearance Clear (CLEAR) 09/12/23 22:17 Urine pH 5 (5-7) 09/12/23 22:17 Ur Specific Gravit y 1.010 (1.005-1.0 30) 09/12/23 22:17 Urine Protein Neg (Negative) 09/12/23 22:17 Urine Glucose (UA) 4+ (Normal) H 09/12/23 22:17 Urine Ketones Negative (Negati ve) 09/12/23 22:17 Urine Blood Neg (Negative) 09/12/23 22:17 Urine Nitrate Negative (Negati ve) 09/12/23 22:17 Urine Bilirubin Neg (Negative) 09/12/23 22:17 Urine Urobilinogen Neg mg/dL (Negati ve) 09/12/23 22:17 Ur Leukocyte Renée ase Negative (Negati ve) 09/12/23 22:17 Urine RBC 0-4 /hpf (0-2) H 09/12/23 22:17 Urine WBC 0-4 /hpf (0-5) H 09/12/23 22:17 Ur Squamous Epith Cells 0-4 /hpf (0-5) H 09/12/23 22:17 Amorphous Sediment Not Reportable 09/12/23 22:17 Urine Bacteria 2+ /hpf (NONE) H 09/12/23 22:17 Urine Yeast 2+ /hpf H 09/12/23 22:17 Salicylates < 0.3 mg/dL (3-10 ) L 09/12/23 21:37 Urine Opiates Scre en Positive ng/mL (N egative) H 09/12/23 22:17 Acetaminophen 14.4 ug/mL (10-30 ) 09/12/23 21:37 Ur Barbiturates Sc reen Negative ng/mL (N egative) 09/12/23 22:17 Ur Phencyclidine S crn Negative ng/mL (N egative) 09/12/23 22:17 Ur Amphetamines Sc reen Positive ng/mL (N egative) H 09/12/23 22:17 U Benzodiazepines Scrn Positive ng/mL (N egative) H 09/12/23 22:17 Urine Cocaine Scre en Negative ng/mL (N egative) 09/12/23 22:17 U Marijuana (THC) Screen Positive ng/mL (N egative) H 09/12/23 22:17 Ethyl Alcohol < 10 mg/dL (0-10) 09/13/23 09:22 Serum Ketones Negative (Negati ve) 09/13/23 09:22 Hepatitis A IgM Ab Non-reactive (No nreactive) 09/13/23 09:22 Hep Bs Antigen Non-reactive (No nreactive) 09/13/23 09:22 Hep B Core IgM Ab Non-reactive (No nreactive) 09/13/23 09:22 Hepatitis C Antibo dy Reactive (Nonrea ctive) H 09/13/23 09:22 HCV RNA (PCR) IUs/ ml 6.79 Log IU/mL (N OT DETECTED) H 09/13/23 12:41 HCV RNA (PCR) IU l [id number] IU/mL (NO T DETECTED) H 09/13/23 12:41 Vitals: Last Vital Signs Temp 98.3 F 09/18/23 13:14 Pulse 87 09/18/23 13:14 Resp 17 09/18/23 13:14 BP 119/77 09/18/23 13:14 Pulse Ox 95 09/18/23 13:14 O2 Del Method Room Air 09/17/23 14:00 O2 Flow Rate 2 09/12/23 23:52 Discharge Plan Discharge Patient Disposition: Home Condition: Stable Prescriptions: New metformin 500 mg Tablet 500 mg PO BIDWM Qty: 60 0RF Januvia 100 mg Tablet 50 mg PO DAILY Qty: 30 0RF trazodone 50 mg Tablet 50 mg PO BEDTIME PRN (Reason: Sleep) 30 Days Qty: 30 1RF Vitamin B-1 (mononitrate) 100 mg Tablet 100 mg PO DAILY 30 Days Qty: 30 1RF (DME) Blood Glucose Monitoring Kit See Rx Instructions .Route Qty: 1 0RF Rx Instructions: As directed Continued olanzapine 10 mg tablet 10 mg PO BEDTIME Qty: 30 6RF propranolol 20 mg tablet 20 mg PO BID Qty: 60 3RF duloxetine [Cymbalta] 60 mg capsule,delayed release(DR/EC) 60 mg PO QAM Qty: 30 3RF naproxen 500 mg tablet 500 mg PO BID PRN (Reason: pain) Qty: 60 5RF Hold Instructions: Resume on 03/03/23. Tylenol Extra Strength 500 mg tablet 1,000 mg PO Q6H PRN (Reason: Pain) hydroxyzine HCl 50 mg tablet 50 mg PO TID PRN (Reason: anxiety) Qty: 90 3RF Discontinued hydrocodone-acetaminophen 5-325 mg tablet 1 tab PO Q8H PRN (Reason: pain) 7 Days Qty: 21 0RF Discharge Orders: Discharge Order (Routine); Ordered 09/18/23 Ordered By: Scott Hayward Referrals: [facility] [Outside] - 09/21/23 12:45 pm (Hospital follow up only with Gael Feng) Alex Hodge MD [Primary Care Provider] - 4-7 days Discharge Diet: Diabetic Discharge Activity: Resume usual activity Patient Instructions: Alcoholism, Trazodone (By mouth) (Desyrel, Desyrel Dividose, Oleptro, Trazamine), Metformin (By mouth), Sitagliptin (By mouth) (Januvia, Zituvio), Depression (DC), Suicide Prevention (DC), Opioid Safety Activity Restrictions/Additional Instructions: Consistent carb diet Follow-up with primary care provider 3 to 5 days Check blood sugars every morning and at bedtime to bring to primary care provider. Nursing to make sure patient has glucose monitoring current and test strips at discharge. If she does not, please call this and or notify me. Discharge Attestations NPU Time Spent in Discharge Care*: less than 30 min Specific Discharge Activities: Specific discharge activities: educating patient, discussing with caseworker protective services/social workers/dc planners, documenting/other paperwork and evaluating patient/reviewing data Coding Level of Care Code Acute Code for Chg Fwd Diagnoses Lumbar stenosis with neurogenic claudication M48.062 Diabetes mellitus type 2 in obese E11.69; E66.9 Opioid use disorder F11.90 Marijuana use, episodic F12.90 Other stimulant abuse with stimulant-induced mood disorder F15.14 Cigarette nicotine dependence without complication F17.210 Substance use status: uncomplicated Uncomplicated alcohol dependence F10.20 Substance use status: uncomplicated Borderline personality disorder F60.3 Chronic neck and back pain M54.2; M54.9; G89.29
== END 2023-09-18 13:58 | disposition home or self-care (01) | DRG 897 ==
LOC: ER 09-13 06:30 → NP 09-13 11:13
PROVIDERS: Emergency Medicine; Internal Medicine; Admitting Provider Psychiatry & Neurology Psychiatry; Emergency Provider Family Medicine; PCP Family Medicine Adult Medicine; Visit Provider Psychiatry & Neurology Psychiatry
DX: F10.229 Alcohol dependence with intoxication, unspecified (principal); R45.851 Suicidal ideations; E11.65 Type 2 diabetes mellitus with hyperglycemia; F17.210 Nicotine dependence, cigarettes, uncomplicated; E87.6 Hypokalemia; R74.01 Elevation of levels of liver transaminase levels; G43.909 Migraine, unspecified, not intractable, without status migrainosus; F60.3 Borderline personality disorder; Z91.51 Personal history of suicidal behavior; B19.20 Unspecified viral hepatitis C without hepatic coma; M48.062 Spinal stenosis, lumbar region with neurogenic claudication
CPT/HCPCS: 36415; 36416; 36600; 51702; 70450; 71045; 80051; 80053; 80074; 80306; 80307; 81001; 81025; 82009; 82140; 82330; 82805; 82962; 83036; 83605; 83735; 84145; 84443; 84484; 85025; 85610; 85730; 87040; 87077; 87086; 87186; 87522; 93005; 96365; 96372; 96375; 96376; 97150; 97165; 99285; J0696; J1200; J1630; J1815; J2060; J7030

== ENCOUNTER 2023-10-27 08:05 | Outpatient (CLI) | payer MEDICAID, SELFPAY ==
[2021-08-24 15:39] VITALS: BP 164/96; BMI 26.2
[2023-10-27 08:54] LABS: Estmated Average Glucose 266; Hemoglobin A1C 10.9 % (4.0-6.0)
== END 2023-10-27 08:06 | disposition home or self-care (01) ==
LOC: LAB 08:06
PROVIDERS: PCP Family Medicine Adult Medicine; Visit Provider Orthopaedic Surgery
DX: E11.69 Type 2 diabetes mellitus with other specified complication (principal); E66.9 Obesity, unspecified
CPT/HCPCS: 36415; 83036

== ENCOUNTER → 2023-12-24 16:59 | Outpatient (BNVA) | payer MEDICAID, SELFPAY ==
[2021-08-24 15:39] VITALS: BP 164/96; BMI 26.2
== END ==
PROVIDERS: PCP Family Medicine Adult Medicine; Visit Provider Nurse Practitioner
DX: S89.92XA Unspecified injury of left lower leg, initial encounter (principal); M25.562 Pain in left knee; Z98.890 Other specified postprocedural states; X50.9XXA Other and unspecified overexertion or strenuous movements or postures, initial encounter
CPT/HCPCS: 73562

== ENCOUNTER 2023-12-28 13:59 | Outpatient (CLI) | payer MEDICAID, SELFPAY ==
[2021-08-24 15:39] VITALS: BP 164/96; BMI 26.2
[2023-12-28 14:46] LABS: Estmated Average Glucose 206; Hemoglobin A1C 8.8 % (4.0-6.0)
== END 2023-12-28 14:00 | disposition home or self-care (01) ==
PROVIDERS: PCP Family Medicine Adult Medicine; Visit Provider Orthopaedic Surgery
DX: E11.69 Type 2 diabetes mellitus with other specified complication (principal); E66.9 Obesity, unspecified
CPT/HCPCS: 36415; 83036

== ENCOUNTER 2024-01-31 09:37 | Outpatient (CLI) | payer MEDICAID, SELFPAY ==
[2021-08-24 15:39] VITALS: BP 164/96; BMI 26.2
[2024-01-31 10:20] LABS: Estmated Average Glucose 197; Hemoglobin A1C 8.5 % (4.0-6.0)
== END 2024-01-31 09:38 | disposition home or self-care (01) ==
LOC: LAB 09:37
PROVIDERS: PCP Family Medicine Adult Medicine; Visit Provider Orthopaedic Surgery
DX: E11.69 Type 2 diabetes mellitus with other specified complication (principal); E66.9 Obesity, unspecified
CPT/HCPCS: 36415; 83036

== ENCOUNTER → 2024-03-14 10:48 | Outpatient (BNVA) | payer MEDICAID, SELFPAY ==
[2021-08-24 15:39] VITALS: BP 164/96; BMI 26.2
== END ==
PROVIDERS: PCP Family Medicine Adult Medicine; Visit Provider Orthopaedic Surgery
DX: Z01.818 Encounter for other preprocedural examination (principal); Z79.899 Other long term (current) drug therapy; M54.12 Radiculopathy, cervical region
CPT/HCPCS: 36415; 80053; 80061; 81001; 85025

== ENCOUNTER 2024-04-03 05:39 | Day surgery (SDC) | payer MEDICAID, SELFPAY ==
[2021-08-24 15:39] VITALS: BP 164/96; BMI 26.2
[2024-04-03] VITALS (18 sets, daily range): BP systolic 101–159; BP diastolic 68–117; PULSE 78–88; RESP 16–18; TEMP 36.3–36.4; O2SAT 90–97; BMI 32.3
[2024-04-03 05:56] LABS: OR HCG Qualitative Urine Negative (Negative)
[2024-04-03] MEDS: sodium chloride 0.9% 1,000 ML 30 ML IV (06:06)
[2024-04-03 06:12] LABS: Amphetamines Screen Urine Negative (Negative); Barbiturates Screen Urine Negative (Negative); Benzodiazepines Screen Urine Positive (Negative); Cocaine Screen Urine Negative (Negative); Opiate Screen Urine Positive (Negative); PCP Screen Urine Negative (Negative); THC Screen Urine Positive (Negative)
[2024-04-03 06:22] LABS: Glucose Point of Care 190 mg/dL (70-110)
--- NOTE | 2024-04-03 06:39 | W.PM.OPSUD ---
Surgery/Procedure H&P Update DATE OF PROCEDURE: April 03, 2024 DATE H&P PERFORMED: 03/14/24 H&P UPDATE INFORMATION: I have reviewed H&P completed within last 30 days, I have examined patient prior to procedure and No changes to prior documentation PREOP DIAGNOSIS: Cervical stenosis with radiculopathy PLANNED PROCEDURE: Operation Date: 04/03/24 07:00 Proposed Procedures p Anterior Cervical Discectomy & Fusion ACDF w/ Anterior Interbody Fusion w/ Cage w/ Instrumentation w/ Allograft w/ Navigation(Not Applicable) - Willy Babin DO
[2024-04-03] MEDS: ceFAZolin 2,000 mg SDV 2000 MG IVP (06:59)
--- NOTE | 2024-04-03 07:34 | ANES.PREANE2 ---
Pre-Anesthetic Assessment Height/Weight: Height 1.68 m Weight 90.718 kg Temp Pulse Resp BP Pulse Ox O2 Del Method 97.4 F L 79 18 159/117 97 Room Air 04/03/24 05:54 04/03/24 05:54 04/03/24 05:54 04/03/24 05:54 04/03/24 05:54 04/03/24 05:58 Preop Diagnosis: Cervical stenosis with radiculopathy Operation Date: 04/03/24 07:00 Proposed Procedures p Anterior Cervical Discectomy & Fusion ACDF w/ Anterior Interbody Fusion w/ Cage w/ Instrumentation w/ Allograft w/ Navigation(Not Applicable) - Willy Babin, DO Familial anesthetic complications: None Was Beta Andressa taken within 24 hours: N/A Was Clonidine taken within 24 hours: N/A Last intake: Intake Last Liquid Date 04/02/24 Last Liquid Time 23:50 Last Solid Date 04/02/24 Last Solid Time 21:00 Social Alcohol and Tobacco MJ, Opioid, meth Exam alert, oriented x 3, clear to auscultation bilaterally and regular rate & rhythm Airway Mallampati: Class II Dentition: full Hepatic Hepatitis (C) Metabolic Diabetes Mellitus Anesthetic Plan ASA status: 3 Anesthesia: General Risk of > 500 ml blood loss (7ml/kg in children): No Medications/Allergies Home Medications Medication Instructions Recorded Confirmed Last Taken Type acetaminophen 500 mg tablet 1,000 mg PO Q6H PRN Pain 08/04/21 04/02/24 03/26/24 History (Tylenol Extra Strength) diclofenac sodium 1 % topical gel 2 g topical QID PRN pain #100 grams 12/24/23 04/02/24 Unknown Rx blood sugar diagnostic (OneTouch #100 ea 01/23/24 03/14/24 Unknown Rx Verio test strips) lancets 33 gauge (OneTouch Delica #100 ea 01/23/24 03/14/24 Unknown Rx Plus Lancet) propranolol 20 mg tablet 20 mg PO BID #60 tabs 01/25/24 04/02/24 04/02/24 Rx trazodone 50 mg tablet 50 mg PO BEDTIME PRN Sleep 30 days 01/25/24 04/02/24 04/02/24 Rx #30 tabs duloxetine 60 mg capsule,delayed 120 mg (2 x 60 mg) PO QAM #60 caps 02/08/24 04/02/24 04/02/24 Rx release (Cymbalta) hydroxyzine HCl 50 mg tablet 50 mg PO TID PRN anxiety #90 tabs 02/22/24 04/02/24 04/02/24 Rx olanzapine 20 mg tablet 20 mg PO BEDTIME #30 tabs 02/22/24 04/02/24 04/02/24 Rx empagliflozin 25 mg tablet 25 mg PO QAM #30 tabs 03/18/24 04/02/24 04/02/24 Rx (Jardiance) metformin 1,000 mg tablet 1,000 mg PO BIDWM diabetes #60 tabs 03/18/24 04/02/24 04/02/24 Rx sitagliptin phosphate 100 mg 100 mg PO DAILY diabetes #30 tabs 03/18/24 04/02/24 04/02/24 Rx tablet (Januvia) hydrocodone 5 mg-acetaminophen 325 1 tab PO Q12H PRN pain 1 month #56 03/25/24 04/02/24 04/02/24 Rx mg tablet tabs naproxen 500 mg tablet 500 mg PO DAILY 04/02/24 04/02/24 04/02/24 History Allergies Allergy/AdvReac Type Severity Reaction Status Date / Time Sulfa (Sulfonamide AdvReac Intermediate Rash Verified 03/14/24 10:30 Antibiotics) Current Medications Generic Name Dose Route Start Last Admin Trade Name Freq PRN Reason Stop Dose Admin Sodium Chloride 1,000 mls @ 30 mls/hr 04/03/24 05:45 04/03/24 06:06 Sodium Chloride 0.9% IV 04/04/24 05:44 30 mls/hr .Q24H VITALY Administration PFSH Anesthesia Medical History Elevated blood pressure reading Marijuana dependence daily use Alcohol dependence daily use Hepatitis C Per patient Diabetes mellitus type 2 in obese Knee pain, right Chronic neck and back pain Cigarette nicotine dependence Other stimulant abuse with stimulant-induced mood disorder last use meth 08/29/23 Opioid use disorder Psychiatric care Borderline personality disorder Compression fracture of L1 lumbar vertebra Hx of migraines Surgical History History of back surgery H/O knee surgery Family History Other Family history non-contributory Social History Smoking and tobacco/nicotine status: current every day tobacco/nicotine user cigarettes Packs smoked per day: 0.5 Years cigarettes smoked: 25 Quit status (tobacco/nicotine): has tried quititng Number of times tried to quit tobacco: 2 Second hand smoke exposure: Yes (Sometimes.) Alcohol intake: former Substance/Drug Use: former Date of last use: 2021 Data Anesthesia Cardiac Studies: Echocardiogram 12/12/22
[2024-04-03] MEDS: lidocaine-epi 1% 20 mL INJ INJECTION (07:41)
--- NOTE | 2024-04-03 08:23 | XR_ITS ---
WS: [id number] INTRAOPERATIVE TECHNIQUE: 3 Spot fluoroscopic images for intraoperative purposes. FLUOROSCOPY TIME: 9.7 seconds CLINICAL INFORMATION: OR PICS FINDINGS: ACDF C5-6. Endotracheal tube. XR/XR cervical spine 3V* [id number] IMPRESSION: Images obtained for intraoperative purposes.
--- NOTE | 2024-04-03 08:43 | PM.OP ---
Operative Report Date of procedure: April 03, 2024 Pre-op diagnosis: Cervical stenosis with radiculopathy Post-op diagnosis: same Procedure done: 1. Anterior diskectomy C5/6 2. Insertion of cage C5/6 3. Instrumentation with anterior plate from C5-C6 4. Use of allograft Surgeon: Willy Babin DO Estimated blood loss (mL): 20 Procedure: 1. Anterior diskectomy C5/6 2. Insertion of cage C5/6 3. Instrumentation with anterior plate from C5-C6 4. Use of allograft The patient was taken to the operating room, where he underwent general endotracheal anesthesia without complications. He was then positioned supine on the operating table, and all areas of impingement were well padded. The arms were carefully padded and tucked at his sides. A roll was placed between the shoulder blades.. An x-ray was done to determine the appropriate level for the skin incision. The entire neck was then sterilely prepped and draped in the usual fashion. Neuromonitoring was attached prior to prepping. A transverse skin incision was made and carried down to the platysma muscle. This was then split in line with its fibers. Blunt dissection was carried down medial to the carotid sheath and lateral to the trachea and esophagus until the anterior cervical spine was visualized. A needle was placed into a disc and an x-ray was done to determine its location. The longus colli muscles were then elevated bilaterally with the electrocautery unit. Self-retaining retractors were placed deep to the longus colli muscle. Attention was brought to the C5-6 level that was confirmed on x-ray. A caspar pin was placed into the C5 vertebrae and the C6 vertebrae. The disk space was then distracted. The microscope was then brought in. A radical anterior discectomies were performed at C5/6. This included complete removal of the anterior annulus, nucleus, and posterior annulus. The posterior longitudinal ligament was removed as were the posterior osteophytes. Foraminotomies were then accomplished bilaterally. This was done using a high speed josr, kerrison rongeurs and curretes Once all of this was accomplished, the curved currette was used to check for any residual compression. The central canal was wide open as were the foramen. A high-speed bur was used to remove the cartilaginous endplates above and below the interspace. Bleeding cancellous bone was exposed. The disc space were measured and appropriate size cage were placed sterilely onto the field. Allograft graft was packed into the cages. The cage was then placed and there was good juxtaposition against the bleeding decorticated surfaces and good distraction of each interspace. The [place] pins were removed. Bone wax was used to prevent any bleeding from occurring at the pin sites. The appropriate size anterior cervical locking plate was chosen and bent into gentle lordosis. Two screws were then placed into each of the vertebral bodies at C5 and C6. There was excellent purchase. A final x-ray was done confirming good position of the hardware and Cages. The locking screws were then applied, also with excellent purchase. Following a final copious irrigation, there was good hemostasis and no dural leaks. The carotid pulse was strong. The wounds were then closed in layers using 2-0 Vicryl suture for the platysma muscle, 2-0 Vicryl suture for the subcutaneous tissue, and 4-0 monocryl suture in a subcuticular skin closure. Glue was placed followed by application of a sterile dressing. The drain was hooked to bulb suction. A soft collar was applied. The patient was then carefully returned to the supine position on his hospital bed where he was reversed and extubated and taken to the recovery room having tolerated the procedure well.
[2024-04-03] MEDS: fentaNYL 50 mcg/mL INJ 2mL IVP (09:35)
[2024-04-03] MEDS: HYDROcodone-acetaminophen 5-325 mg Tablet 1 TAB PO (10:49)
--- NOTE | 2024-04-03 10:50 | ANE.PACU2 ---
Inpatient post-anesthesia follow up: Airway intact: Yes Vital signs: Temperature 97.5 F Pulse Rate 88 Respiratory Rate 18 Blood Pressure 126/88 Pulse Oximetry 95 Oxygen Delivery Me thod Room Air Oxygen Flow Rate 2 Fraction of Inspir ed Oxygen Hydration adequate: Yes Nausea and vomiting: No Pain level: 1 Mental status: Baseline
== END 2024-04-03 10:53 | disposition home or self-care (01) ==
PROVIDERS: Visit Provider Orthopaedic Surgery
PROC: 0RB30ZZ Excision of Cervical Vertebral Disc, Open Approach (ICD-10-PCS; CPT 22551; principal; 2024-04-03 07:00)
DX: M48.02 Spinal stenosis, cervical region (principal); M54.12 Radiculopathy, cervical region; E11.9 Type 2 diabetes mellitus without complications; F17.210 Nicotine dependence, cigarettes, uncomplicated; Z79.84 Long term (current) use of oral hypoglycemic drugs; Z79.899 Other long term (current) drug therapy; Z88.2 Allergy status to sulfonamides
CPT/HCPCS: 22551; 22853; 20930; 36416; 72040; 76000; 80306; 81025; 82962; C1713 ×2; C1763; C9359; J0330; J0690; J1100; J1171; J2250; J2405; J2704; J3010; J3490; J7030

== ENCOUNTER → 2024-05-16 08:33 | Outpatient (BNVA) | payer MEDICAID, SELFPAY ==
[2021-08-24 15:39] VITALS: BP 164/96; BMI 26.2
== END ==
PROVIDERS: Visit Provider Orthopaedic Surgery
DX: Z98.1 Arthrodesis status (principal)
CPT/HCPCS: 72040

== ENCOUNTER → 2024-07-02 10:50 | Outpatient (BNVA) | payer MEDICAID, SELFPAY ==
[2021-08-24 15:39] VITALS: BP 164/96; BMI 26.2
== END ==
PROVIDERS: Visit Provider Orthopaedic Surgery
DX: Z98.1 Arthrodesis status (principal)
CPT/HCPCS: 72040

== ENCOUNTER → 2024-07-22 15:52 | Outpatient (BNVA) | payer MEDICAID, SELFPAY ==
[2021-08-24 15:39] VITALS: BP 164/96; BMI 26.2
== END ==
PROVIDERS: Visit Provider Nurse Practitioner Psychiatric/Mental Health
DX: Z79.899 Other long term (current) drug therapy (principal)
CPT/HCPCS: 80053; 80061; 83036

== ENCOUNTER → 2024-08-12 15:14 | Outpatient (BNVA) | payer OTHER, SELFPAY ==
[2021-08-24 15:39] VITALS: BP 164/96; BMI 26.2
== END ==
PROVIDERS: PCP Family Medicine; Visit Provider Family Medicine
DX: E11.69 Type 2 diabetes mellitus with other specified complication (principal); E66.9 Obesity, unspecified; B19.20 Unspecified viral hepatitis C without hepatic coma
CPT/HCPCS: 80053; 82043; 84443; 85025; 86803; 87522

== ENCOUNTER → 2024-08-13 11:05 | Outpatient (BNVA) | payer OTHER, SELFPAY ==
[2021-08-24 15:39] VITALS: BP 164/96; BMI 26.2
== END ==
PROVIDERS: PCP Family Medicine; Visit Provider Orthopaedic Surgery
DX: M47.22 Other spondylosis with radiculopathy, cervical region (principal)
CPT/HCPCS: 72040

== ENCOUNTER 2024-08-23 07:04 | Outpatient (CLI) | payer MEDICAID, SELFPAY ==
[2021-08-24 15:39] VITALS: BP 164/96; BMI 26.2
--- NOTE | 2024-08-23 08:00 | US_ITS ---
WS: [id number] RIGHT UPPER QUADRANT ULTRASOUND HISTORY: Hep. C/ Liver COMPARISON: 12/27/2009 Liver: 16.7 cm in length. Normal size liver with mild hepatic steatosis. No intrahepatic duct dilatation. Portal Vein: Normal hepatopetal flow with monophasic waveform. Gallbladder: Normally distended gallbladder with a stone near the gallbladder neck. No entrapment of the stone identified. No gallbladder wall edema or thickening. CBD: 0.3 cm Pancreas: Normal size and echogenicity. Right kidney: 10.5 cm in length. Normal size and echogenicity. No hydronephrosis or mass. Aorta and IVC: Unremarkable abdominal aorta and IVC. No ascites. US/US abdomen limited [id number] IMPRESSION: 1. Cholelithiasis without evidence for acute cholecystitis. 2. Mild changes of hepatic steatosis within the liver.
== END 2024-08-23 07:05 | disposition home or self-care (01) ==
PROVIDERS: PCP Family Medicine; Visit Provider Family Medicine
DX: B18.2 Chronic viral hepatitis C (principal); K80.20 Calculus of gallbladder without cholecystitis without obstruction; K76.0 Fatty (change of) liver, not elsewhere classified
CPT/HCPCS: 76705

== ENCOUNTER → 2024-10-07 15:57 | Outpatient (BNVA) | payer MEDICAID, SELFPAY ==
[2024-09-03 10:44] VITALS: BP 164/96; BMI 26.2
== END ==
PROVIDERS: PCP Family Medicine; Visit Provider Family Medicine
DX: B18.2 Chronic viral hepatitis C (principal)
CPT/HCPCS: 80053; 86705; 86706; 87340; 87806; 87902

== ENCOUNTER → 2024-11-15 15:01 | Outpatient (BNVA) | payer MEDICAID, SELFPAY ==
[2024-09-03 10:44] VITALS: BP 164/96; BMI 26.2
== END ==
PROVIDERS: PCP Family Medicine; Visit Provider Family Medicine
DX: E11.69 Type 2 diabetes mellitus with other specified complication (principal); E66.9 Obesity, unspecified
CPT/HCPCS: 80053; 83036

== ENCOUNTER → 2024-12-05 10:21 | Outpatient (BNVA) | payer MEDICAID, SELFPAY ==
[2024-12-05 10:40] VITALS: BP 149/103; BMI 32.0
== END ==
PROVIDERS: PCP Family Medicine; Visit Provider Podiatrist Foot & Ankle Surgery
DX: M21.611 Bunion of right foot (principal); M21.612 Bunion of left foot; E87.5 Hyperkalemia; M20.12 Hallux valgus (acquired), left foot; M20.11 Hallux valgus (acquired), right foot; E11.40 Type 2 diabetes mellitus with diabetic neuropathy, unspecified; Z79.84 Long term (current) use of oral hypoglycemic drugs; Z79.4 Long term (current) use of insulin
CPT/HCPCS: 73630; 80048

== ENCOUNTER 2024-12-30 05:52 | Day surgery (SDC) | payer MEDICAID, SELFPAY ==
[2024-12-05 10:40] VITALS: BP 149/103; BMI 32.0
[2024-12-30 06:15] VITALS: BP 173/111; PULSE 92; RESP 18; TEMP 36.3; O2SAT 97
--- NOTE | 2024-12-30 06:20 | PC.NURSE ---
Checked patient in and done initial assessment. Ask patient for a urine sample for HCG and patient declined. Patient then stated she would like to reschedule surgery and left the properative area.
== END 2024-12-30 06:25 | disposition home or self-care (01) ==
LOC: OR 05:54
PROVIDERS: PCP Family Medicine; Visit Provider Podiatrist Foot & Ankle Surgery
PROC: (CPT 28296; principal; 2024-12-30 07:00)
PROC: (CPT 28298; 2024-12-30 07:00)
DX: Z53.8 Procedure and treatment not carried out for other reasons (principal)